=== PATIENT | female | born 1955 | race Caucasian/White ===

== ENCOUNTER 2020-09-12 09:49 | Outpatient (CLI) | payer MEDICARE, BC, SELFPAY ==
--- NOTE | 2020-09-12 10:15 | XRR_ITS ---
PROCEDURE INFORMATION: Exam: XR Lumbosacral Spine, 2 or 3 Views Exam date and time: 09/12/2020 10:21 AM Age: 65 years old Clinical indication: Injury or trauma; Fall; Blunt trauma (contusions or hematomas); Patient HX: C/O pain in tailbone -fell 2 weeks ago; Additional info: Herniated lumbar disc/lumbar back pain w/radiculopathy TECHNIQUE: Imaging protocol: XR of the lumbosacral spine, 2 or 3 views. COMPARISON: No relevant prior studies available. FINDINGS: Bones/joints: No fracture or other acute abnormalities are seen. Chronic degenerative disease is present throughout the lumbar spine especially from L3 through L5 with disc space narrowing and osteophyte formation. There is sclerosis and hypertrophy of the lower lumbar facet joints. There is no significant malalignment. Soft tissues: Unremarkable. Vasculature: There is calcification of the aorta. XR/XR lumbar spine 2-3V* [id number] IMPRESSION: Chronic degenerative disease especially from L3 through L5. No acute abnormality.
== END 2020-09-12 09:50 | disposition home or self-care (01) ==
PROVIDERS: PCP Electrodiagnostic Medicine; Visit Provider Electrodiagnostic Medicine
DX: I80.00 Phlebitis and thrombophlebitis of superficial vessels of unspecified lower extremity (principal); M51.26 Other intervertebral disc displacement, lumbar region; M54.16 Radiculopathy, lumbar region
CPT/HCPCS: 72100

== ENCOUNTER 2020-09-21 14:07 | Outpatient (CLI) | payer MEDICARE, SELFPAY ==
--- NOTE | 2020-09-21 | XR_ITS ---
WS: [id number] SCREENING DEXA SCAN [facility] CLINICAL INFORMATION: POST MENOPAUSE COMPARISON: None. FINDINGS: The L1-L4 bone mineral density measures 1.384 g/cm2. This corresponds to a T score score of 1.7 and Z score of 2.4. Left femoral neck bone mineral density measures 0.930 g/cm2. This corresponds to a T score of -0.6 an d Z score of 0.0. Right femoral neck bone mineral density measures 1.011 g/cm2. This corresponds to a T score 0.0of and Z score of 0.6. Mean femoral neck bone mineral density measures 0.970 g/cm2. This corresponds to a T score of -0.3 an d Z score of 0.3. XR/XR DEXA axial skeleton* [id number] IMPRESSION: Osteopenia in the femoral necks. Normal bone mineralization in the lumbar spine . Patient's FRAX calculated 10 year probability for major osteoporotic fracture i s 7.3 % and osteoporotic hip fracture is 0.4%.
== END 2020-09-21 14:08 | disposition home or self-care (01) ==
PROVIDERS: PCP Electrodiagnostic Medicine; Visit Provider Electrodiagnostic Medicine
DX: Z78.0 Asymptomatic menopausal state (principal); M85.88 Other specified disorders of bone density and structure, other site
CPT/HCPCS: 77080

== ENCOUNTER 2021-06-19 08:36 | Outpatient (CLI) | payer MEDICARE, SELFPAY ==
--- NOTE | 2021-06-19 08:45 | XR_ITS ---
WS: [id number] XR knee RT 3V* [id number] REASON FOR EXAM: KNEE PAIN RIGHT ACUTE FINDINGS: Mild narrowing of the medial and lateral knee joint spaces. Mild subchondral sclerosis in the subarti cular medial and lateral tibial plateau. Marginal osteophytes in the medial and lateral joint compart ments. Patient has 2 possibly 3 loose bodies in the posterior joint space and one loose body in the anterior joint space. Mild narrowing of the patellofemoral joint space with marginal osteophytes of the patella. XR/XR knee RT 3V* [id number] IMPRESSION: Moderate changes of osteoarthritis in the right knee with loose bodies. The ost eoarthritic changes and the loose bodies have progressed since previous examina tion of 01/30/2007.
== END 2021-06-19 08:37 | disposition home or self-care (01) ==
LOC: RAD 08:42
PROVIDERS: PCP Electrodiagnostic Medicine; Visit Provider Electrodiagnostic Medicine
DX: M25.561 Pain in right knee (principal)
CPT/HCPCS: 73562

== ENCOUNTER 2021-08-02 12:19 | Outpatient (CLI) | payer MEDICARE, SELFPAY ==
--- NOTE | 2021-08-02 12:26 | USCV_ITS ---
Emmanuel Carisa Age: 66 Gender: F : 1955 Exam Date: 08/02/2021 12:48 Ordering Phys: Ricky Hurt DO Technologist: MEEK [place] [facility] [place]: SUPERFICIAL THROMBOLITIS PROCEDURES: Venous duplex imaging was performed in only the right lower extremity. The following venous structures were evaluated: common femoral vein, profunda vein, proximal portion of the greater saphenous vein, superficial femoral vein, and the popliteal vein. In addition, the posterior tibial and peroneal trunk were evaluated. Serial compression, augmentation maneuvers, and spectral Doppler flow evaluation were performed. FINDINGS: Normal 2-D Doppler and augmentation and compressibility throughout the lower extremity venous structures. Additional imaging through the proximal calf veins also reveals no thrombus. Limited evaluation of the greater saphenous vein is patent with no thrombus.. There does appear to be two mcleod's cyst in the rt popliteal fossa. CONCLUSIONS No evidence of right lower extremity DVT. Popliteal cysts measuring 3.4x1.4 cm and 3.8x2.5cm Josue Stevenson MD (Electronically Signed) Final Date: 02 August 2021 13:08 S
== END 2021-08-02 12:20 | disposition home or self-care (01) ==
LOC: RAD 12:23
PROVIDERS: PCP Electrodiagnostic Medicine; Visit Provider Electrodiagnostic Medicine
DX: I80.00 Phlebitis and thrombophlebitis of superficial vessels of unspecified lower extremity (principal); M79.604 Pain in right leg; I83.90 Asymptomatic varicose veins of unspecified lower extremity
CPT/HCPCS: 93971

== ENCOUNTER → 2021-12-12 14:47 | Outpatient (BNVA) | payer MEDICARE, SELFPAY | PROVIDERS: PCP Electrodiagnostic Medicine; Visit Provider Podiatrist Foot & Ankle Surgery | DX: M25.572 Pain in left ankle and joints of left foot (principal) | CPT/HCPCS: 73610; 73630 ==

== ENCOUNTER 2021-12-18 13:08 | Outpatient (CLI) | payer MEDICARE, SELFPAY ==
--- NOTE | 2021-12-18 13:24 | USCV_ITS ---
Carisa Benitez Age: 66 Gender: F : 1955 Exam Date: 12/18/2021 13:34 Ordering Phys: Arnav Tabor MD ([email or web address]) Technologist: ELOINA Exam Location: [facility] [place] Indication: HISTORY: Varicose Veins PROCEDURES: The venous duplex Doppler examination of both lower extremities was performed in the standard fashion. The following venous structures were evaluated: common femoral vein, greater saphenous vein, superficial femoral vein, and the popliteal vein and the ptvs. Serial compression, augmentation maneuvers, and spectral Doppler flow evaluation were performed. An evaluation for venous insufficiency was also completed. FINDINGS: The right leg is her biggest bother. There is reflux all the way down the GSV and some V.Vs go into the GSV. The V.V. below know connect with the SSV On the left the SSV connects to V.V. CONCLUSIONS 1. No evidence of DVT the wounds and abrasions. 2. Significant venous reflux of greater than 500 ms were noted throughout the greater saphenous vein segments and the small saphenous vein segments on the right side. However these venous segments were found to be very superficial, less than 1 cm. At the above-knee level, the varicose veins were found to be related to the greater saphenous vein segments. At the below-knee level the varicose veins were found to be connected to the small saphenous vein. 3. On the left side, significant venous reflux of greater than 500 ms were noted at the proximal to mid segment of the small saphenous vein. But the venous segments were found to be very superficial, less than 1 cm from the surface At the below-knee level, the varicose veins were found to be connected to small saphenous veins bilaterally An echolucent area was noted in the popliteal fossa on the right side measuring 6.4 x 2.4 cm. This is suggestive of Zamorano's cyst Dr Massiel Caldwell MD [facility] (Electronically Signed) Final Date: 19 December 2021 23:21 S
== END 2021-12-18 13:09 | disposition home or self-care (01) ==
PROVIDERS: PCP Electrodiagnostic Medicine; Visit Provider Internal Medicine Cardiovascular Disease
DX: I83.90 Asymptomatic varicose veins of unspecified lower extremity (principal); I87.2 Venous insufficiency (chronic) (peripheral)
CPT/HCPCS: 93970

== ENCOUNTER → 2022-01-17 10:08 | Outpatient (BNVA) | payer MEDICARE, SELFPAY | PROVIDERS: PCP Electrodiagnostic Medicine; Visit Provider Podiatrist Foot & Ankle Surgery | DX: M76.829 Posterior tibial tendinitis, unspecified leg; M76.72 Peroneal tendinitis, left leg; M21.42 Flat foot [pes planus] (acquired), left foot; Z87.891 Personal history of nicotine dependence; S93.622A Sprain of tarsometatarsal ligament of left foot, initial encounter; X58.XXXA Exposure to other specified factors, initial encounter | CPT/HCPCS: 99213; 99214 ==

== ENCOUNTER → 2022-02-19 09:24 | Outpatient (BNVA) | payer MEDICARE, SELFPAY | PROVIDERS: PCP Electrodiagnostic Medicine; Visit Provider Podiatrist Foot & Ankle Surgery | DX: S93.629A Sprain of tarsometatarsal ligament of unspecified foot, initial encounter (principal); M79.672 Pain in left foot; M76.822 Posterior tibial tendinitis, left leg; M76.72 Peroneal tendinitis, left leg; M21.42 Flat foot [pes planus] (acquired), left foot; X58.XXXA Exposure to other specified factors, initial encounter | CPT/HCPCS: 99213 ==

== ENCOUNTER 2022-03-06 11:48 | Outpatient (CLI) | payer MEDICARE, SELFPAY | END 2022-03-06 11:49 | disposition home or self-care (01) | LOC: SPT 11:49 | PROVIDERS: PCP Electrodiagnostic Medicine; Visit Provider Podiatrist Foot & Ankle Surgery | DX: Z46.89 Encounter for fitting and adjustment of other specified devices (principal); M79.672 Pain in left foot; M76.822 Posterior tibial tendinitis, left leg; M76.72 Peroneal tendinitis, left leg; M21.42 Flat foot [pes planus] (acquired), left foot | CPT/HCPCS: 97760; L3030 ==

== ENCOUNTER → 2022-04-08 08:43 | Outpatient (BNVA) | payer MEDICARE, SELFPAY | PROVIDERS: PCP Electrodiagnostic Medicine; Visit Provider Podiatrist Foot & Ankle Surgery | DX: M79.672 Pain in left foot (principal); S93.629A Sprain of tarsometatarsal ligament of unspecified foot, initial encounter; M21.42 Flat foot [pes planus] (acquired), left foot; M76.822 Posterior tibial tendinitis, left leg; X58.XXXA Exposure to other specified factors, initial encounter | CPT/HCPCS: 99214 ==

== ENCOUNTER 2022-05-14 | Outpatient (CLI) | payer MEDICARE, SELFPAY | END 2022-05-14 23:00 | disposition home or self-care (01) | LOC: RAD 07-16 01:26 | PROVIDERS: PCP Electrodiagnostic Medicine; Visit Provider Podiatrist Foot & Ankle Surgery | DX: S93.629A Sprain of tarsometatarsal ligament of unspecified foot, initial encounter (principal); X58.XXXA Exposure to other specified factors, initial encounter; M76.72 Peroneal tendinitis, left leg; M21.42 Flat foot [pes planus] (acquired), left foot | CPT/HCPCS: 99214 ==

== ENCOUNTER → 2022-05-29 11:17 | Outpatient (BNVA) | payer MEDICARE, SELFPAY | PROVIDERS: PCP Electrodiagnostic Medicine; Visit Provider Podiatrist Foot & Ankle Surgery | DX: M76.822 Posterior tibial tendinitis, left leg (principal); X58.XXXA Exposure to other specified factors, initial encounter; M76.72 Peroneal tendinitis, left leg; M21.42 Flat foot [pes planus] (acquired), left foot; S93.326A Dislocation of tarsometatarsal joint of unspecified foot, initial encounter | CPT/HCPCS: 99214 ==

== ENCOUNTER 2022-06-14 08:18 | Day surgery (SDC) | payer MEDICARE, SELFPAY ==
[2022-06-13 08:55] VITALS: BMI 29.9
[2022-06-14] VITALS (8 sets, daily range): BP systolic 143–159; BP diastolic 80–111; PULSE 74–91; RESP 16–20; TEMP 36.7–37.1; O2SAT 90–100
--- NOTE | 2022-06-14 | SCC_ITS ---
Procedure done: This of left first and second tarsometatarsal joints. CPT code 84325 16 seconds of fluoroscopic guidance, for a cumulative dose of 0.275 mGy, was provided to Dr. Nam by the radiology department. C-arm images of the left foot were saved for the patient's permanent record. [facility]
--- NOTE | 2022-06-14 08:43 | W.PM.OPSUD ---
Surgery/Procedure H&P Update DATE OF PROCEDURE: June 14, 2022 DATE H&P PERFORMED: 05/29/22 CHANGES TO PREVIOUS DOCUMENTATION: none PREOP DIAGNOSIS: Lisfranc dislocation, left foot PLANNED PROCEDURE: Operation Date: 06/14/22 09:50 Proposed Procedures p Arthrodesis of left midtarsal joint 26209,,S92.321A,M12.572(Left) - Santiago Nam DPM
--- NOTE | 2022-06-14 08:46 | XR_ITS ---
WS: [id number] Exam: XR foot LT min 3V* [id number] Date/Time of Exam: 06/14/2022 10:57 AM Reason For Exam: post op first and second TMT J arthrodesis Operative fusion with plate and screw fixation of the first and second metatarsal cuneiform joints. A lignment appears satisfactory. No sign of hardware failure or malposition. No other postoperative isabelle nges are identified. XR/XR foot LT min 3V* [id number] IMPRESSION: 1. Arthrodesis of the first and second metatarsal cuneiform joints with hardwar e as noted above.
[2022-06-14] MEDS: gabapentin 300 mg Capsule PO (08:48)
[2022-06-14] MEDS: CELEcoxib 200 mg Capsule 400 MG PO (08:48)
[2022-06-14] MEDS: sodium chloride 0.9% 1,000 ML 30 ML IV (08:50)
[2022-06-14] MEDS: ceFAZolin 2,000 MG in sodium chloride 0.9% (plus) 50 ML 100 MG IV (09:04)
[2022-06-14] MEDS: scopolamine 1.5 Patch 1 PATCH TRANSDERMA (09:05)
--- NOTE | 2022-06-14 09:47 | ANES.PREANE2 ---
Pre-Anesthetic Assessment Height/Weight: Height 1.73 m Weight 89.358 kg Temp Pulse Resp BP Pulse Ox O2 Del Method 98.7 F 91 17 155/111 96 06/14/22 08:06/14/22 08:06/14/22 08:06/14/22 08:06/14/22 08:06/14/22 08:35 Preop Diagnosis: Lisfranc dislocation, left foot Operation Date: 06/14/22 09:50 Proposed Procedures p Arthrodesis of left midtarsal joint 06880,,S92.321A,M12.572(Left) - Santiago Nam DPM Familial anesthetic complications: none Was Beta Beverly taken within 24 hours: N/A Was Clonidine taken within 24 hours: N/A Last intake: Intake Last Liquid Date 06/13/22 Last Liquid Time 19:30 Last Solid Date 06/13/22 Last Solid Time 19:00 Social No alcohol and No tobacco Exam alert, oriented x 3, clear to auscultation bilaterally and regular rate & rhythm Airway Submandibular: within normal limits Cervical ROM: within normal limits Mallampati: Class II Dentition: full CV/HEM Hypertension GI Gastroesophageal Reflux Disease Metabolic Hyperlipidemia Anesthetic Plan ASA status: 2 Anesthesia: General and Regional (specify below) (left pop blk) Medications/Allergies Home Medications Medication Instructions Recorded Confirmed Last Taken Type amlodipine 5 mg tablet 5 mg PO DAILY 08/30/21 06/14/22 06/14/22 07:30 History atorvastatin 40 mg tablet 40 mg PO DAILY 08/30/21 06/14/22 06/13/22 21:00 History cholecalciferol (vitamin D3) 1,250 50,000 unit PO .Montly 08/30/21 06/14/22 05/24/22 History mcg (50,000 unit) capsule ibuprofen 800 mg tablet 800 mg PO TID PRN Mild Pain (Scale 08/30/21 06/13/22 Unknown History Score 1-4) omeprazole 40 mg capsule,delayed 40 mg PO DAILY 08/30/21 06/14/22 06/13/22 08:00 History release tizanidine 2 mg tablet 2 mg PO TID PRN Muscle Spasticity 08/30/21 06/13/22 Unknown History Custom Molded Orthotics #1 ea 12/12/21 05/29/22 Unknown Rx hydrocodone 10 mg-acetaminophen 1 tab PO Q6H PRN pain 7 days #28 06/14/22 Unknown Rx 325 mg tablet tabs Allergies Allergy/AdvReac Type Severity Reaction Status Date / Time No Known Allergies Allergy Verified 05/29/22 11:28 Current Medications Generic Name Dose Route Start Last Admin Trade Name Freq PRN Reason Stop Dose Admin Sodium Chloride 1,000 mls @ 30 mls/hr 06/14/22 08:30 06/14/22 08:50 Sodium Chloride 0.9% IV 06/15/22 08:29 30 mls/hr .Q24H SAIDA Administration PFSH Anesthesia Family History Mother Heart disease Father Heart disease Cancer Brother Cancer Colon CA Social History Smoking and tobacco status: never smoked Quit status (tobacco): has quit using tobacco Year quit tobacco: 1997 2 pack per day Former quit date comment: smoked for 30 years Alcohol intake: current Alcohol intake frequency: 3 or more drinks per day Alcohol type: beer Lives independently: Yes Household members: spouse Housing: House Marital status: Number of children: 3 Pets and animals: No Data Anesthesia Cardiac Studies: No Data to Display Anesthesia Procedures Nerve Block Nerve Block 1: Main Anesthesia: general anesthesia Time Out Performed: Yes Consent: requested by attending/covering physician, from patient, risks and benefits reviewed and patient agrees to proceed Nerve block location: popliteal (left) Anesthesia monitors applied: pulse oximetry, EKG, BP cuff and oxygen Nerve block position: supine Anesthetic Used: ropivicaine 0.5% Amount of anesthesia used (mL): 30 Ultrasound used to: recognize landmarks Nerve Stimulator Used?: No Interscalene/Femoral BLK: 4 stimuplex 21 g needle used for position and inplane approach Injection: neg aspiration of heme Patient Tolerated Procedure: well Complications: none
--- NOTE | 2022-06-14 10:46 | PM.OP ---
Operative Report Date of procedure: June 14, 2022 Pre-op diagnosis: Preop Diagnosis Lisfranc dislocation, left foot Post-op diagnosis: Left Lisfranc dislocation Post-op findings: Gross instability at the left first and second tarsometatarsal joints. Procedure done: This of left first and second tarsometatarsal joints. CPT code 53576 Implants: Orlando 28 Lapidus plate. Orlando 28 4 mm headed screw for homerun through arthrodesis, Orlando 28 3.5 mm locking and nonlocking screws. Orlando 28 Hamel plate. Orlando 28 2.7 mm locking and nonlocking screws. 1 cc of Orlando 28 demineralized bone matrix. 3-0 Vicryl, 4-0 Vicryl, 5-0 Monocryl. 20 cc of one-to-one mixture 0.5% Marcaine plain and Exparel. Specimens removed/disposition: None Pathology: None Surgeon: Santiago Nam D.P.M. Division Officer [employer]: [employer] Estimated blood loss: None 63 IV fluids: None Urine output: None Complications: None Findings: Gross instability at left first and second tarsometatarsal joints. Brief History: Patient is a pleasant 66-year-old female continues to have pain at the left foot.? CT scan was revealing.? Shows malalignment of the medial cuneiform with the first metatarsal dislocated laterally approximately 3 mm.? There is dorsal lateral subluxation of the second metatarsal base in regards to the unmedicated form also up to 3 mm.? Pain has been present since spring 2021 began in November.? She would like to discuss surgical intervention has failed a aggressive at home physical therapy, formal physical therapy, offloading and bracing, she has tried supportive shoes, anti-inflammatories and continues to have pain at her left foot with everyday activities.? She is wishing to proceed with surgery on 06/14/2022.? I reviewed at length with the patient, the risks, potential complications, benefits, alternatives, expectations, and typical outcomes associated with the surgery. The risks and potential complications were explained in detail, including but not limited to infection, wound dehiscence or soft tissue complications, bleeding and hematoma, chronic edema, neuritis or nerve damage producing numbness or chronic pain, CRPS, failure to relieve pain or worsening pain, thick / painful / unsightly scar, limited motion / stiffness, malposition, delayed union, malunion, or nonunion, fracture, reaction to implants, anesthetic complications, venous thromboembolism, and deformity recurrence.? I discussed the notion of no regrets with the patient as it pertains to complications and outcomes. The patient seemed to understand the nature of the proposed care and required convalescence. They asked appropriate questions, answered to their satisfaction. They are aware no guarantees can be made as to a satisfactory outcome and they understand there may be other possible unforeseen complications or outcomes not listed here that will be treated accordingly if they arise. There were no written or implied guarantees given to the patient. They gave informed consent to proceed.? Procedure: Under mild sedation the patient was brought to the operating room and remained on the gurney in supine position. A timeout was performed. Anesthesia was then administered by the anesthesia service. Of note popliteal block to the left lower extremity administered per anesthesia service preoperatively. Well-padded pneumatic tourniquet applied to the left ankle. 0.5% Marcaine plain and Exparel one-to-one mixture total of 20 cc injected to the proximal midfoot dorsally and medially in a grid like fashion subcutaneously. The left lower extremity was then scrubbed, prepped and draped utilizing normal aseptic technique. Left foot was then exanguinated with an Esmarch bandage and the tourniquet inflated to 250 mmHg. Attention was directed to the dorsal medial aspect of the left first metatarsal phalangeal joint where a linear longitudinal incision was made medial and parallel to the extensor houses longus tendon through skin with dissection carried down to the layer of periosteum and joint capsule utilizing a combination of blunt and sharp technique. Care was taken to retract and preserve neurovascular and tendinous structures. All bleeders were ligated and cauterized as necessary. A periosteal and capsular incision was made at the first metatarsal base and medial cuneiform joint which was then distracted and prepared for arthrodesis utilizing osteotome and curettage denuding all articular surface, saline flush and subchondral drilling at the base of the left first metatarsal and distal aspect of the medial cuneiform. The first metatarsal was held parallel to the second metatarsal and impacted on the arthrodesis site under loading and a homerun screw from dorsal distal to proximal plantar utilizing a Orlando 28 4.0 mm headed screw with excellent bony apposition and compression noted not violating the cuneiform navicular joint. Next utilizing standard AO technique a Orlando 28 standard Lapidus plate with 2 screws proximal and 2 distal were inserted with excellent bony apposition compression noted. Placement of hardware not violating adjacent joints and appropriate length appreciated in office 3 standard views utilizing intraoperative fluoroscopy. Of note preoperatively the first and second tarsometatarsal joints demonstrated gross instability and subluxation at their respective joints. The incision was flushed with copious amounts of sterile skin solution. Attention was then directed to the dorsal aspect of the second metatarsal proximally where a linear longitudinal incision was made directly over the intermediate cuneiform and second metatarsal through skin with dissection carried down through subcutaneous tissue and to the layer of periosteum and joint capsule utilizing sharp and blunt technique. Care was taken to retract and preserve neurovascular and tendinous structures. All bleeders were ligated and cauterized as necessary. Periosteal and capsular incision was performed dorsally at the second metatarsal base and intermediate cuneiform, the arthrodesis site of the second metatarsal base and cuneiform joint was prepared utilizing distraction of the joint, curettage and osteotome to denude all articular surface followed by saline flush and subchondral drilling with subchondral drill bit to millimeter in diameter. The second metatarsal base was fused with excellent bony apposition and compression noted at the arthrodesis site utilizing a Orlando 28 Hamel plate and 2.7 mm locking and nonlocking screws. Excellent bony apposition and compression, alignment confirmed in all 3 planes not violating any adjacent joints including the cuneiform navicular joint was clear of hardware. Significant stability imparted to the first and second tarsometatarsal joint intraoperatively. The incisions were then flushed with copious amounts of sterile skin solution and periosteal and capsular structures reapproximated utilizing 3-0 Vicryl, subcutaneous tissue reapproximated with 4-0 Vicryl and skin reapproximated with 5-0 Monocryl followed by benzoin and Steri-Strips. The incision was then dressed with Adaptic, sterile 4 x 4, Kerlix and Dain wrap and a cam boot was applied to the left lower extremity. Tourniquet was deflated and a prompt hyperemic response was noted to the distal digits of the left foot. Patient tolerated the procedure and anesthesia well and was transferred to the PACU with vital signs stable and vascular status intact. Following a period of postoperative monitoring she will be discharged home is to remain strict nonweightbearing and elevate the left foot at all times while resting. I advised a baby aspirin once daily starting morning after surgery 06/15/2022 to help potentially reduce the risk of deep vein thrombosis. She was provided a prescription for hydrocodone to be taken judiciously as needed for pain. She is to keep her postoperative dressings clean, dry and intact until follow-up visit Friday next week for her first dressing change. Provided the patient with my cell phone number and discharge instructions. She is to contact with any postoperative questions or concerns.
--- NOTE | 2022-06-14 14:18 | ANE.PACU2 ---
Inpatient post-anesthesia follow up: Airway intact: Yes Vital signs: Temperature 98.1 F Pulse Rate 82 Respiratory Rate 17 Blood Pressure 150/97 Pulse Oximetry 92 Oxygen Delivery Me thod Room Air Oxygen Flow Rate 8 Fraction of Inspir ed Oxygen Hydration adequate: Yes Nausea and vomiting: No Pain level: 1 Mental status: Baseline
== END 2022-06-14 11:43 | disposition home or self-care (01) ==
PROVIDERS: PCP Electrodiagnostic Medicine; Visit Provider Podiatrist Foot & Ankle Surgery
PROC: (CPT 28740; principal; 2022-06-14 09:40)
DX: S93.324A Dislocation of tarsometatarsal joint of right foot, initial encounter (principal); X58.XXXA Exposure to other specified factors, initial encounter; I10 Essential (primary) hypertension; K21.9 Gastro-esophageal reflux disease without esophagitis; E78.5 Hyperlipidemia, unspecified; Z87.891 Personal history of nicotine dependence
CPT/HCPCS: 28735; 73630; 76000; C1713; C9290; J1100; J1200; J2250; J2370; J2405; J2704; J2795; J3010; J3490; J7030

== ENCOUNTER → 2022-07-04 12:54 | Outpatient (BNVA) | payer MEDICARE, SELFPAY | PROVIDERS: PCP Electrodiagnostic Medicine; Visit Provider Podiatrist Foot & Ankle Surgery | DX: M76.822 Posterior tibial tendinitis, left leg (principal); M76.72 Peroneal tendinitis, left leg; M21.42 Flat foot [pes planus] (acquired), left foot; S93.326A Dislocation of tarsometatarsal joint of unspecified foot, initial encounter; X58.XXXA Exposure to other specified factors, initial encounter; Z98.890 Other specified postprocedural states | CPT/HCPCS: 73630; 99024 ==

== ENCOUNTER → 2022-07-25 13:19 | Outpatient (BNVA) | payer MEDICARE, SELFPAY | PROVIDERS: PCP Electrodiagnostic Medicine; Visit Provider Podiatrist Foot & Ankle Surgery | DX: Z98.890 Other specified postprocedural states (principal); S93.326A Dislocation of tarsometatarsal joint of unspecified foot, initial encounter; X58.XXXA Exposure to other specified factors, initial encounter | CPT/HCPCS: 73630; 99024 ==

== ENCOUNTER → 2022-08-16 10:56 | Outpatient (BNVA) | payer MEDICARE, SELFPAY | PROVIDERS: PCP Electrodiagnostic Medicine; Visit Provider Podiatrist Foot & Ankle Surgery | DX: Z98.890 Other specified postprocedural states (principal); S93.322A Subluxation of tarsometatarsal joint of left foot, initial encounter; X58.XXXA Exposure to other specified factors, initial encounter | CPT/HCPCS: 73630; 99024 ==

== ENCOUNTER → 2022-08-28 09:55 | Outpatient (BNVA) | payer MEDICARE, SELFPAY | PROVIDERS: PCP Electrodiagnostic Medicine; Visit Provider Podiatrist Foot & Ankle Surgery | DX: Z98.890 Other specified postprocedural states (principal); S93.326D Dislocation of tarsometatarsal joint of unspecified foot, subsequent encounter; X58.XXXD Exposure to other specified factors, subsequent encounter | CPT/HCPCS: 73630; 99024 ==

== ENCOUNTER → 2022-10-24 14:29 | Outpatient (BNVA) | payer MEDICARE, SELFPAY | PROVIDERS: PCP Electrodiagnostic Medicine; Visit Provider Podiatrist Foot & Ankle Surgery | DX: Z98.890 Other specified postprocedural states (principal); S93.326A Dislocation of tarsometatarsal joint of unspecified foot, initial encounter; X58.XXXA Exposure to other specified factors, initial encounter | CPT/HCPCS: 73630; 99213 ==

== ENCOUNTER 2023-01-12 06:00 | Inpatient (IN) | payer MEDICARE, SELFPAY ==
[2023-01-12] VITALS (33 sets, daily range): BP systolic 128–158; BP diastolic 72–111; PULSE 58–123; RESP 15–24; TEMP 36.6–36.7; O2SAT 91–99; BMI 28.1
--- NOTE | 2023-01-12 06:40 | CTR_ITS ---
PROCEDURE INFORMATION: Exam: CT Abdomen And Pelvis With Contrast Exam date and time: 01/12/2023 7:36 AM Age: 67 years old Clinical indication: Abdominal pain; Additional info: Abd pain TECHNIQUE: Imaging protocol: Computed tomography of the abdomen and pelvis with contrast. Radiation optimization: All CT scans at this facility use at least one of these dose optimization techniques: automated exposure control; mA and/or kV adjustment per patient size (includes targeted exams where dose is matched to clinical indication); or iterative reconstruction. Contrast material: OMNI 350; Contrast volume: 100 ml; Contrast route: INTRAVENOUS (IV); REPORTING DATA: Count of CT and Cardiac NM exams in prior 12 months: This patient has received [address] and 0 known cardiac nuclear medicine studies in the 12 months prior to the current study. COMPARISON: CR XR lumbar spine 2-3V* [id number] 09/12/2020 10:26 AM RADIATION DOSE METRICS: Total DLP (mGy-cm): 690.1 FINDINGS: Liver: Area of hypoattenuation along the anterior margin of the liver adjacent to the falciform ligament consistent with focal fatty infiltration. The liver is normal in size and contour. Gallbladder and bile ducts: The gallbladder appears unremarkable. No intra- or extra-hepatic biliary ductal dilatation. Pancreas: The pancreas appears normal. Spleen: The spleen appears normal. Adrenal glands: The adrenals appear normal. Kidneys and ureters: Simple appearing, fluid density cysts noted in the kidneys bilaterally. The kidneys enhance symmetrically and empty into non-dilated ureters. Stomach and bowel: The stomach appears unremarkable. The small bowel loops are not abnormally dilated. The large bowel loops are not abnormally dilated. Colonic diverticulosis without signs of acute diverticulitis. Appendix: No signs of appendicitis. Intraperitoneal space: No ascites or significant fluid collection. Vasculature: Partially calcified distal splenic artery aneurysms measuring up to approximately 8 mm in diameter. Lymph nodes: There are no enlarged lymph nodes. Urinary bladder: Mild circumferential thickening of the bladder wall likely related to partial nondistention. No surrounding inflammatory changes. Reproductive: Unremarkable as visualized. Bones/joints: Unremarkable. Soft tissues: Unremarkable. CT/CT abdomen pelvis w con* [id number] IMPRESSION: 1. No acute abdominopelvic abnormality identified. 2. Colonic diverticulosis without signs of acute diverticulitis. COMMENTS: Consistent with the [employer]'s Incidental Findings Committee white paper (J Am Erick Radiol 2018): Any incidental renal lesion less than 1 cm or classified as too small to characterize, or any incidental cystic renal lesion characterized as simple-appearing, is likely benign. No follow-up imaging is recommended for these lesions per consensus recommendations based on imaging criteria.
--- NOTE | 2023-01-12 06:40 | CTR_ITS ---
PROCEDURE INFORMATION: Exam: CT Lumbar Spine Without Contrast Exam date and time: 01/12/2023 7:36 AM Age: 67 years old Clinical indication: Pain; Lumbago with sciatica; Left; Additional info: Back pain w L leg radicular pain TECHNIQUE: Imaging protocol: Computed tomography of the lumbar spine without contrast. Radiation optimization: All CT scans at this facility use at least one of these dose optimization techniques: automated exposure control; mA and/or kV adjustment per patient size (includes targeted exams where dose is matched to clinical indication); or iterative reconstruction. REPORTING DATA: Count of CT and Cardiac NM exams in prior 12 months: This patient has received [address] and 0 known cardiac nuclear medicine studies in the 12 months prior to the current study. COMPARISON: CR XR lumbar spine 2-3V* [id number] 09/12/2020 10:26 AM RADIATION DOSE METRICS: Total DLP (mGy-cm): 801.1 FINDINGS: Bones/joints: The lumbar spine demonstrates mild straightening of the normal lordotic curvature. No spondylolisthesis. The vertebral bodies maintain normal height. No fracture. Multilevel loss of intervertebral disc height with endplate degenerative changes, most significant at L1-L2, L3-L4, and L4-L5. Bilateral neural foraminal narrowing at L3-L4 and L4-L5. Multilevel facet arthropathy Soft tissues: The paravertebral soft tissues are unremarkable. CT/CT lumbar spine wo con* [id number] IMPRESSION: 1. No acute fracture or traumatic malalignment in the lumbar spine. 2. Multilevel degenerative changes in the lumbar spine. 3. Bilateral neural foraminal narrowing at L3-L4 and L4-L5.
[2023-01-12] MEDS: sodium chloride 0.9% 1,000 ML 999 ML IV ×2 (06:51→09:07)
[2023-01-12] MEDS: morphine 4 mg/mL SDV 1 mL IVP ×2 (06:53→09:07)
[2023-01-12] MEDS: ondansetron 2 mg/ML SDV 2 mL 4 MG IVP (06:53)
[2023-01-12] MEDS: dexamethasone 10 mg/mL INJ IVP (06:53)
[2023-01-12] MEDS: ketorolac 30 mg/mL INJ IVP (06:53)
[2023-01-12 07:00] LABS: Basophils # 0.1 10^3/uL (0.0-0.1); Basophils % 0.4 %; Eosinophils # 0.1 10^3/uL (0.0-0.8); Eosinophils % 0.4 %; Lymphocytes # 2.1 10^3/uL (0.8-4.8); Lymphocytes % 13.8 %; Mean Corpuscular HGB Conc 34.8 g/dL (30.0-36.0); Mean Corpuscular Hemoglobin 30.8 pg (28.0-34.0); Mean Corpuscular Volume 88.6 fl (81-99); Mean Platelet Volume 9.2 fL (7.4-10.4); Monocytes # 1.1 10^3/uL (0.2-0.9); Monocytes % 7.2 %; Neutrophils # 11.92 10^3/uL (1.8-7.7); Neutrophils % 77.7 %; Nucleated Red Blood Cells % 0 %; Platelet Count 403 10^3/cmm (130-400); Red Blood Count 5.19 10^6/uL (4.1-5.3); Red Cell Distribution Width 13.3 % (12.1-15.1); White Blood Count 15.3 10^3/uL (4.0-10.0)
--- NOTE | 2023-01-12 07:04 | W.ED.BACK ---
HPI - Back Pain/Injury General: Chief Complaint: Back Pain/Injury Stated Complaint: back pain, left leg numbness Time Seen by Provider: 01/12/23 06:18 Source: patient Mode of arrival: ambulatory History of Present Illness: 67-year-old female who presents to the emergency room with complaints of back pain with left leg radicular symptoms she has had right leg radicular symptoms in the past no recent trauma or fall. This been going on for the last 10 days she had seen her primary care doctor they put her on some steroids which she states that did not really help at all she is off the steroids and now it is worsened significantly. She had an MRI about a year ago at an outside facility. She denies any fecal incontinence or urinary retention. MD elicited complaint: back pain Pertinent past history: prior back pain Onset (ago): day(s) Timing: constant Severity: severe Similar Symptoms Previously: Yes Quality: sharp Location: lumbar spine Radiation: groin, left upper leg and left leg below the knee Exacerbating factors: movement and walking Associated symptoms: Reports difficulty walking; Deny abdominal pain, arthralgias, chills, change in bowel habits, dysuria, fatigue, fecal incontinence, fever(s), hematuria, myalgias, nausea, numbness, syncope, tingling/numbness/burning, urinary frequency, urinary urgency, vomiting or weakness Review of Systems Const: Denies: fever(s), chills, fatigue or malaise ENMT: Denies: throat pain, ear or mastoid pain, nasal discharge or nasal congestion Card: Denies: chest pain, palpitations, irregular heart rhythm or syncope Resp: Denies: dyspnea, productive cough or non-productive cough GI: Denies: abdominal pain, nausea, vomiting, fecal incontinence or change in bowel habits : Denies: dysuria, urinary frequency, urinary urgency or hematuria Musc: Reports: back pain and extremity pain Skin/Breast: Denies: rash or pruritus Neuro: Reports: difficulty walking PFSH ED PFSH: Medical History HTN (hypertension) Hyperlipidemia Lisfranc fracture Surgical History S/P arthroscopic knee surgery (~2013) S/P bladder repair S/P foot surgery, right S/P hysterectomy (~1995) Family History Mother Heart disease Father Heart disease Cancer Brother Cancer Colon CA Social History Smoking and tobacco status: never smoked Quit status (tobacco): has quit using tobacco Year quit tobacco: 1997 2 pack per day Former quit date comment: smoked for 30 years Alcohol intake: current Alcohol intake frequency: 3 or more drinks per day Alcohol type: beer Substance/Drug Use: never Lives independently: Yes Household members: spouse Housing: House Marital status: Number of children: 3 Pets and animals: No Physical Exam Const: GENERAL APPEARANCE: cooperative and comfortable ORIENTATION/CONSCIOUSNESS: Yes awake, Yes oriented to person, Yes oriented to place and Yes oriented to time HENMT: COMMON NORMALS: normocephalic, atraumatic and hearing grossly normal bilaterally HEAD & SCALP: normocephalic and atraumatic Resp: COMMON NORMALS: normal respiratory effort, No retractions, No use of accessory muscles and clear to auscultation bilaterally AUSCULTATION: clear to auscultation bilaterally Cardio: COMMON NORMALS: regular rate, regular rhythm and No murmurs present (Cardio) RATE: regular rate RHYTHM: regular rhythm GI: COMMON NORMALS: Soft to palpation and No hepatosplenomegaly present AUSCULTATION: Yes normoactive bowel sounds PALPATION: Yes Soft to palpation, No Tenderness to palpation present (GI), No Guarding due to palpation present (GI) and Yes No hepatosplenomegaly present Extremity: COMMON NORMALS: normal to inspection, capillary refill normal, no clubbing, cyanosis or edema, no calf tenderness and no pedal edema Neuro: SENSORIUM/ORIENTATION: Yes oriented to person, Yes oriented to place and Yes oriented to time MOTOR EXAM: 5/5 motor strength present throughout OTHER: Sensation lower extremities intact positive left leg raising Skin: COMMON NORMALS: no rashes or lesions noted GENERAL SKIN EXAM: no rashes or lesions noted Course Vital Signs: Vital signs: Vital Signs Temperature 98 F 01/12/23 06:07 Pulse Rate 72 01/12/23 12:52 Respiratory Rate 16 01/12/23 11:45 Blood Pressure 128/76 01/12/23 12:52 Pulse Oximetry 94 01/12/23 12:52 Oxygen Delivery Me thod Room Air 01/12/23 09:12 MDM - Back Pain/Injury Medical Decision Making Patient's pain persisted despite 2 doses of morphine and Dilaudid steroids for muscle relaxer and ketorolac. CT did not show any acute fracture. She is having significant alteration in sensation in her left lower extremity. She was able to void and completely empty her bladder although she had some difficult time doing so initially. Given her persistent pain will admit discussed Dr. Faria who is on-call plan is for an inpatient MRI and consultation from Dr. Faria as well as continuous pain management. Medical Records I reviewed the patient's medical records. Labs I reviewed the patient's lab results. 01/12/23 06:43 01/12/23 06:43 Radiology Impressions Abdomen/Pelvis CT 01/12/23 06:40 IMPRESSION: 1. No acute abdominopelvic abnormality identified. 2. Colonic diverticulosis without signs of acute diverticulitis. COMMENTS: Consistent with the [employer]'s Incidental Findings Committee white paper (J Am Erick Radiol 2018): Any incidental renal lesion less than 1 cm or classified as too small to characterize, or any incidental cystic renal lesion characterized as simple-appearing, is likely benign. No follow-up imaging is recommended for these lesions per consensus recommendations based on imaging criteria. Lumbar Spine CT 01/12/23 06:40 IMPRESSION: 1. No acute fracture or traumatic malalignment in the lumbar spine. 2. Multilevel degenerative changes in the lumbar spine. 3. Bilateral neural foraminal narrowing at L3-L4 and L4-L5. Laboratory Results WBC 15.3 10^3/uL (4.0-10.0) H 01/12/23 06:43 RBC 5.19 10^6/uL (4.1-5.3) 01/12/23 06:43 Hgb 16.0 g/dL (11.5-15.3) H 01/12/23 06:43 Hct 46.0 % (37.0-47.0) 01/12/23 06:43 MCV 88.6 fl (81-99) 01/12/23 06:43 MCH 30.8 pg (28.0-34.0) 01/12/23 06:43 MCHC 34.8 g/dL (30.0-36.0) 01/12/23 06:43 RDW 13.3 % (12.1-15.1) 01/12/23 06:43 Plt Count 403 10^3/cmm (130-400) H 01/12/23 06:43 MPV 9.2 fL (7.4-10.4) 01/12/23 06:43 Neut % (Auto) 77.7 % 01/12/23 06:43 Lymph % (Auto) 13.8 % 01/12/23 06:43 [place] % (Auto) 7.2 % 01/12/23 06:43 Eos % (Auto) 0.4 % 01/12/23 06:43 Baso % (Auto) 0.4 % 01/12/23 06:43 Neut # (Auto) 11.92 10^3/uL (1.8-7.7) H 01/12/23 06:43 Lymph # (Auto) 2.1 10^3/uL (0.8-4.8) 01/12/23 06:43 [place] # (Auto) 1.1 10^3/uL (0.2-0.9) H 01/12/23 06:43 Eos # (Auto) 0.1 10^3/uL (0.0-0.8) 01/12/23 06:43 Baso # (Auto) 0.1 10^3/uL (0.0-0.1) 01/12/23 06:43 Nucleated RBC % (auto) 0 % 01/12/23 06:43 Nucleated RBCs # 0.0 /100WBC 01/12/23 06:43 Sodium 131 mmol/L (136-145) L 01/12/23 06:43 Potassium 3.4 mmol/L (3.5-5.1) L 01/12/23 06:43 Chloride 90 mmol/L (98-107) L 01/12/23 06:43 Carbon Dioxide 21 mmol/L (22-29) L 01/12/23 06:43 Anion Gap 23.4 (5-19) H 01/12/23 06:43 BUN 27 mg/dL (8-23) H 01/12/23 06:43 Creatinine 1.0 mg/dL (0.5-0.9) H 01/12/23 06:43 GFR Calculation 55.3 mL/min (90-130) L 01/12/23 06:43 Glucose 182 mg/dL (65-115) H 01/12/23 06:43 Calculated Osmolality 282 mOsm/kg (285-295) L 01/12/23 06:43 Calcium 9.9 mg/dL (8.5-10.5) 01/12/23 06:43 Total Bilirubin 1.2 mg/dL (0.15-1.2) 01/12/23 06:43 AST 23 U/L (0-32) 01/12/23 06:43 ALT 26 U/L (0-33) 01/12/23 06:43 Alkaline Phosphatase 67 U/L (35-105) 01/12/23 06:43 Total Protein 7.7 g/dL (6.6-8.7) 01/12/23 06:43 Albumin 4.7 g/dL (3.5-5.2) 01/12/23 06:43 Globulin 3.0 g/dL (1.3-4.6) 01/12/23 06:43 Lipase 43 U/L (13-60) 01/12/23 06:43 Urine Color Yellow (Yellow) 01/12/23 08:19 Urine Appearance Clear (CLEAR) 01/12/23 08:19 Urine pH 7 (5-7) 01/12/23 08:19 Ur Specific [place] 1.010 (1.005-1.030) 01/12/23 08:19 Urine Protein 3+ (Negative) H 01/12/23 08:19 Urine Glucose (UA) Norm (Normal) 01/12/23 08:19 Urine Ketones Negative (Negative) 01/12/23 08:19 Urine Blood 2+ (Negative) H 01/12/23 08:19 Urine Nitrate Negative (Negative) 01/12/23 08:19 Urine Bilirubin Neg (Negative) 01/12/23 08:19 Urine Urobilinogen Norm mg/dL (Negative) 01/12/23 08:19 Ur Leukocyte Esterase Trace (Negative) H 01/12/23 08:19 Urine RBC 0-4 /hpf (0-2) H 01/12/23 08:19 Urine WBC 0-4 /hpf (0-5) H 01/12/23 08:19 Ur Squamous Epith Cells 0-4 /hpf (0-5) H 01/12/23 08:19 Amorphous Sediment Not Reportable 01/12/23 08:19 Urine Bacteria 1+ /hpf (NONE) H 01/12/23 08:19 Urine Mucus Trace /hpf 01/12/23 08:19 Discharge Plan Discharge Patient Disposition: Admitted As Inpatient Admit Provider: Arnav Landrum Clinical Impression: Lumbar radiculopathy Condition: Stable Coding Level of Care Code 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
[2023-01-12 07:16] LABS: Alanine Aminotransferase 26 U/L (0-33); Albumin Level 4.7 g/dL (3.5-5.2); Alkaline Phosphatase 67 U/L (35-105); Anion Gap 23.4 (5-19); Aspartate Amino Transferase 23 U/L (0-32); Blood Urea Nitrogen 27 mg/dL (8-23); Calcium 9.9 mg/dL (8.5-10.5); Carbon Dioxide 21 mmol/L (22-29); Chloride 90 mmol/L (98-107); Glomerular Filtration Rate 55.3 mL/min (90-130); Glucose 182 mg/dL (65-115); Lipase 43 U/L (13-60); Osmolality Calculated 282 mOsm/kg (285-295); Potassium 3.4 mmol/L (3.5-5.1); Sodium 131 mmol/L (136-145); Total Bilirubin 1.2 mg/dL (0.15-1.2); Total Protein 7.7 g/dL (6.6-8.7)
[2023-01-12] MEDS: iohexol 350 mg/mL 500 mL Btl (per mL) IV (07:42)
[2023-01-12 08:47] LABS: Bilirubin Urine Neg (Negative); Blood Urine 2+ (Negative); Glucose Urine UA Norm (Normal); Ketones Urine Negative (Negative); Leukocyte Esterase Urine Trace (Negative); Nitrate Urine Negative (Negative); Protein Urine 3+ (Negative); Urine Appearance Clear (CLEAR); Urine Color Yellow (Yellow); Urobilinogen Urine Norm (Negative); pH Urine 7 (5-7)
[2023-01-12 08:48] LABS: Add Urine Culture? No; Add Urine Microscopic? YES; Bacteria Urine 1+ /hpf; Mucus Urine TRACE /hpf; RBC Urine 0-4 /hpf (0-2); Squamous Epithelial Cell Urine 0-4 /hpf (0-5); WBC Urine 0-4 /hpf (0-5)
[2023-01-12] MEDS: orphenadrine 30 mg/mL Inj 2 mL 60 MG IVP (10:17)
[2023-01-12] MEDS: HYDROmorphone 1 mg/mL INJ 1 mL IVP (11:05)
--- NOTE | 2023-01-12 12:12 | PM.HP ---
Providers/Chief Complaint Primary Care Provider: Ricky Hurt DO Chief Complaint: back pain, left leg numbness History of Present Illness Carisa Benitez is a 67 year old female with history of chronic back pain, presented with chief complaint of worsening of her pain and nausea. Patient has not been able to do it 3 days, she has been asked nursing nausea and is because of her back pain. She has not noticed falls or urinary incontinence. She is endorsing numbness left flank and left upper thigh area. She does have a metal implant in her foot from previous fracture when she fell due to mechanical fall In the ER her sodium was 131 potassium 3.4, creatinine 1.0 She has been given Decadron, MRI has been requested, MRI screening is needed Dr. Faria consulted Review of Systems Const: Reports: chills Eyes: Denies: change in vision ENMT: Denies: throat pain Card: Denies: chest pain Resp: Denies: dyspnea GI: Reports: nausea : Denies: flank pain Musc: Reports: back pain Skin/Breast: Denies: rash Neuro: Denies: headache(s) Psych: Reports: anxiety Medications/Allergies Home Medications Medication Instructions Recorded Confirmed Last Taken Type amlodipine 5 mg tablet 5 mg PO DAILY 08/30/21 01/12/23 01/09/23 History atorvastatin 40 mg tablet 40 mg PO DAILY 08/30/21 01/12/23 01/09/23 History cholecalciferol (vitamin D3) 1,250 50,000 unit PO .Montly 08/30/21 01/12/23 12/14/22 History mcg (50,000 unit) capsule ibuprofen 800 mg tablet 800 mg PO TID PRN Mild Pain (Scale 08/30/21 01/12/23 Unknown History Score 1-4) omeprazole 40 mg capsule,delayed 40 mg PO DAILY 08/30/21 01/12/23 01/09/23 History release tizanidine 2 mg tablet 2 mg PO TID PRN Muscle Spasticity 08/30/21 01/12/23 Unknown History Custom Molded Orthotics #1 ea 12/12/21 01/12/23 Unknown Rx escitalopram oxalate 10 mg tablet 10 mg PO DAILY 01/12/23 01/12/23 01/09/23 History (Lexapro) Allergies Allergy/AdvReac Type Severity Reaction Status Date / Time No Known Allergies Allergy Verified 01/12/23 06:14 PFSH Acute PFSH: Medical History HTN (hypertension) Hyperlipidemia Lisfranc fracture Surgical History S/P arthroscopic knee surgery (~2013) S/P bladder repair S/P foot surgery, right S/P hysterectomy (~1995) Family History Mother Heart disease Father Heart disease Cancer Brother Cancer Colon [place] Social History Smoking and tobacco status: never smoked Quit status (tobacco): has quit using tobacco Year quit tobacco: 1997 2 pack per day Former quit date comment: smoked for 30 years Alcohol intake: current Alcohol intake frequency: 3 or more drinks per day Alcohol type: beer Substance/Drug Use: never Lives independently: Yes Household members: spouse Housing: House Marital status: Number of children: 3 Pets and animals: No Vitals/I&O/Wt Last Vital Signs Temp 98 F 01/12/23 06:07 Pulse 70 01/12/23 11:30 Resp 18 01/12/23 11:30 BP 149/78 01/12/23 11:30 Pulse Ox 97 01/12/23 11:30 O2 Del Method Room Air 01/12/23 09:12 01/11/23 01/12/23 01/12/23 22:59 06:59 14:59 Intake Total 1000 / 1000 Balance 1000 / 1000 Weight last 48 hrs Weight 83.915 kg Physical Exam Narrative: Pleasant cooperative female Awake and alert S1, S2 Currently on room air Clinically very dry Abdomen soft Nonfocal neuro exam Lives in mucous membranes extremely dry No active emesis or chest pain at the bedside Pleasant and cooperative Data 01/12/23 06:43 01/12/23 06:43 A&P Assessment and plan (1) Lumbar radiculopathy, chronic: (2) Back pain: (3) Nausea: (4) Dehydration: Plan Back pain No signs of cauda equina I will start her on Decadron Start IV fluids MRI requested to rule out cauda equina syndrome however clinical no active signs Dr. Faria consulted I will keep her n.p.o. after midnight in case she goes to any surgical intervention MRI screening is needed Preoperative clearance: Patient does not have any history of coronary disease or stent placement, her physical activity is limited because of back pain, will request echo Nausea related to vasovagal response due to pain Start IV fluids I will keep her diet for now Zofran as needed Hypertension: Optimize antihypertensive regimen this could be related to pain as well Full code DVT prophylaxis on hold disposition of possible surgical invention if needed Attestations Medical Necessity Statement*: More than 2 midnights anticipated if possible surgical invention Diagnoses Lumbar radiculopathy, chronic M54.16 Back pain M54.9 Nausea R11.0 Dehydration E86.0
--- NOTE | 2023-01-12 12:49 | USCV_ITS ---
Carisa Benitez Age: 67 Gender: F : 1955 Exam Date: 01/12/2023 13:33 Ordering Phys: Arnav Landrum MD Technologist: Kevin Urban [place] [facility] [place]: preop BP: 132 / 72 HR: 146 Rhythm: Sinus Technical Quality: Suboptimal MEASUREMENTS (Male / Female) Normal Values 2D ECHO LV Ejection Fraction MOD 2C 78.3 % LV Ejection Fraction 2C AL 80.1 % IVC Diameter 1.1 cm DOPPLER AV Peak Velocity 125.0 cm/s LVOT Peak Velocity 100.0 cm/s MV Area PHT 3.3 cm squared Mitral E to A Ratio 0.7 MV E' Velocity 36.5 cm/s Mitral E to MV E' Ratio 7.4 Mitral E to LV E' Lateral Ratio 6.8 Mitral E to LV E' Septal Ratio 8.0 TR Peak Velocity 157.0 cm/s TR Peak Gradient 9.9 mmHg TV Peak E Velocity 68.0 cm/s Right Atrial Pressure 3.0 mmHg Pulmonary Artery Systolic Pressu 12.9 mmHg FINDINGS Left Ventricle Normal left ventricular size and systolic function, EF 76 %. No regional wall motion abnormalities. Grade I/IV diastolic dysfunction (abnormal relaxation filling pattern), normal to mildly elevated filling pressures. Right Ventricle The right ventricle is normal in size and function. Right Atrium The right atrium is normal in size. Left Atrium The left atrium is normal in size. Mitral Valve No gross abnormalities noted Aortic Valve No gross abnormalities noted Tricuspid Valve No gross abnormalities noted Pulmonic Valve No gross abnormalities noted Pericardium Normal pericardium without effusion. Aorta Normal ascending aorta dimension. IVC The inferior vena cava appears normal. CONCLUSIONS Normal left ventricular size and systolic function, EF 76 %. No regional wall motion abnormalities. Grade I/IV diastolic dysfunction (abnormal relaxation filling pattern), normal to mildly elevated filling pressures. Normal cardiac chamber sizes. No significant valvular abnormalities. No pericardial effusion. No intracardiac masses. No similar previous studies are available for comparison Dr Massiel Caldwell MD [facility] (Electronically Signed) Final Date: 12 January 2023 23:25 S
--- NOTE | 2023-01-12 13:35 | P.CONIM_ITS ---
Providers/Reason For Consult Consulting Physician/Specialty*: Ortho spine Reason for Consult*: Back and left leg pain Attending Physician: Arnav Landrum MD Primary Care Provider: Ricky Hurt DO History of Present Illness History of Present Illness Carisa Benitez is a 67 year old female who presented to the emergency room with increased back and leg pain. She was evaluated in room 261 after being consulted for her back and leg pain. She states that November 13, 2022 the pain in her back and right leg became uncomfortable as she was traveling to [place]. She did receive a prednisone taper dose that relieved her right leg pain but in the last few weeks the pain in her left leg has became unbearable. She describes equal back and left leg pain that travels down to her toes. Any use of the left leg makes it much worse. Rest has not helped either. The medicatio n she is received in the emergency room has given her some tolerable relief. She denies any loss of bowel or bladder control. Denies any falls. Describes the pain as sharp stabbing travels down the left leg all the way to her foot. Prior to the medication reported 8 out of 10 on the pain scale. Review of Systems Const: Reports: chills Eyes: Denies: change in vision ENMT: Denies: throat pain Card: Denies: chest pain Resp: Denies: dyspnea GI: Reports: nausea : Denies: flank pain Musc: Reports: back pain Skin/Breast: Denies: rash Neuro: Denies: headache(s) Psych: Reports: anxiety Medications/Allergies Home Medications Medication Instructions Recorded Confirmed Last Taken Type amlodipine 5 mg tablet 5 mg PO DAILY 08/30/21 01/12/23 01/09/23 History atorvastatin 40 mg tablet 40 mg PO DAILY 08/30/21 01/12/23 01/09/23 History cholecalciferol (vitamin D3) 1,250 50,000 unit PO .Montly 08/30/21 01/12/23 12/14/22 History mcg (50,000 unit) capsule ibuprofen 800 mg tablet 800 mg PO TID PRN Mild Pain (Scale 08/30/21 01/12/23 Unknown History Score 1-4) omeprazole 40 mg capsule,delayed 40 mg PO DAILY 08/30/21 01/12/23 01/09/23 History release tizanidine 2 mg tablet 2 mg PO TID PRN Muscle Spasticity 08/30/21 01/12/23 Unknown History Custom Molded Orthotics #1 ea 12/12/21 01/12/23 Unknown Rx escitalopram oxalate 10 mg tablet 10 mg PO DAILY 01/12/23 01/12/23 01/09/23 History (Lexapro) Allergies Allergy/AdvReac Type Severity Reaction Status Date / Time No Known Allergies Allergy Verified 01/12/23 06:14 PFSH Acute PFSH: Medical History HTN (hypertension) Hyperlipidemia Lisfranc fracture Surgical History S/P arthroscopic knee surgery (~2013) S/P bladder repair S/P foot surgery, right S/P hysterectomy (~1995) Family History Mother Heart disease Father Heart disease Cancer Brother Cancer Colon [place] Social History Smoking and tobacco status: never smoked Quit status (tobacco): has quit using tobacco Year quit tobacco: 1997 2 pack per day Former quit date comment: smoked for 30 years Alcohol intake: current Alcohol intake frequency: 3 or more drinks per day Alcohol type: beer Substance/Drug Use: never Lives independently: Yes Household members: spouse Housing: House Marital status: Number of children: 3 Pets and animals: No Vitals/I&O/Wt Last Vital Signs Temp 98 F 01/12/23 06:07 Pulse 72 01/12/23 12:52 Resp 16 01/12/23 11:45 BP 128/76 01/12/23 12:52 Pulse Ox 94 01/12/23 12:52 O2 Del Method Room Air 01/12/23 09:12 01/11/23 01/12/23 01/12/23 22:59 06:59 14:59 Intake Total 1999 Balance 1999 Weight last 48 hrs Weight 185 lb Weight 185 lb Physical Exam Narrative: She is alert and orient x3 she has good general appearance normal mood and affect. Full range of motion of the cervical spine both upper extremities at the shoulders elbows and wrist. No palpable pain about the cervical or thoracic spine. Normal sensation light touch down both upper extremities hands warm good cap refill radial pulses are palpable. Palpable pain in the low back that travels down the left buttock left leg. Negative logroll bilaterally. Positive straight leg raise on the left negative on the right. She has good sensation down both lower extremities feet are warm good cap refill calves are supple no medial thigh tenderness. She appears to fire in all motor groups with good strength. Dorsalis pedis and posterior tibial pulses are weak but palpable. Reflexes are 1+ and symmetric about the knees and the ankle. HENMT: COMMON NORMALS: normocephalic and atraumatic HEAD & SCALP: normocephalic and atraumatic Resp: COMMON NORMALS: normal respiratory effort Cardio: COMMON NORMALS: regular rate and regular rhythm RATE: regular rate RHYTHM: regular rhythm GI: COMMON NORMALS: Soft to palpation and non-tender PALPATION: Yes Soft to palpation : COMMON NORMALS: Yes no CVA tenderness BLADDER/KIDNEY EXAM: Yes no CVA tenderness Back/Pelvis: COMMON NORMALS: no CVA tenderness Psych: COMMON NORMALS: mental status grossly normal and cooperative Data 01/12/23 06:43 01/12/23 06:[address]: Radiologist's impression: CT/CT lumbar spine wo con* [id number] IMPRESSION: 1. ? No acute fracture or traumatic malalignment in the lumbar spine. 2. ? Multilevel degenerative changes in the lumbar spine. 3. ? Bilateral neural foraminal narrowing at L3-L4 and L4-L5. A&P Assessment and plan (1) Lumbar radiculopathy: Reviewed the CT scan which shows multilevel degenerative disc disease with vacuum disc phenomenon L3-4 L4-5 advanced collapse with degenerative changes at L1-2. Patient has received a dose of Decadron that has given her good tolerable relief. Patient presents with equal back and left lower extremity pain would recommend an MRI scan of her lumbar spine without contrast. More than 50% of the time spent with the patient today involved coordination of care, counseling and discussion of conservative versus surgical treatment options. Total amount of time spent with the patient was 32 minutes. (2) DDD (degenerative disc disease), lumbar: Coding Level of Care Code Acute Code for [facility] Diagnoses Lumbar radiculopathy M54.16 DDD (degenerative disc disease), lumbar M51.36 Time Spent (min) 32
[2023-01-12] MEDS: dexamethasone 4 mg Tablet PO ×2 (14:40→20:19)
[2023-01-12] MEDS: HYDROmorphone 1 mg/mL INJ 1 mL 0.2 MG IVP ×3 (14:40→22:24)
[2023-01-12] MEDS: oxyCODONE-APAP 10-325 mg Tablet 1 TAB PO (19:28)
[2023-01-13] VITALS (15 sets, daily range): BP systolic 124–150; BP diastolic 80–92; PULSE 52–80; RESP 16–24; TEMP 36.6–37.1; O2SAT 94–98
[2023-01-13] MEDS: HYDROmorphone 1 mg/mL INJ 1 mL 0.2 MG IVP ×5 (02:31→19:45)
[2023-01-13 04:36] LABS: Basophils % 0.1 %; Hematocrit 39.1 % (37.0-47.0); Hemoglobin 12.9 g/dL (11.5-15.3); Lymphocytes # 0.8 10^3/uL (0.8-4.8); Lymphocytes % 5.6 %; Mean Corpuscular Hemoglobin 30.3 pg (28.0-34.0); Mean Corpuscular Volume 91.8 fl (81-99); Mean Platelet Volume 9.6 fL (7.4-10.4); Monocytes # 0.5 10^3/uL (0.2-0.9); Monocytes % 3.2 %; Neutrophils # 12.93 10^3/uL (1.8-7.7); Neutrophils % 90.6 %; Nucleated Red Blood Cells % 0 %; Platelet Count 310 10^3/cmm (130-400); Red Blood Count 4.26 10^6/uL (4.1-5.3); Red Cell Distribution Width 13.5 % (12.1-15.1); White Blood Count 14.3 10^3/uL (4.0-10.0)
[2023-01-13 04:43] LABS: Anion Gap 15.3 (5-19); Blood Urea Nitrogen 24 mg/dL (8-23); Calcium 8.9 mg/dL (8.5-10.5); Carbon Dioxide 24 mmol/L (22-29); Chloride 97 mmol/L (98-107); Glomerular Filtration Rate 99.7 mL/min (90-130); Glucose 148 mg/dL (65-115); Magnesium 1.9 mg/dL (1.7-2.3); Osmolality Calculated 283 mOsm/kg (285-295); Potassium 3.3 mmol/L (3.5-5.1); Sodium 133 mmol/L (136-145)
[2023-01-13] MEDS: amlodipine 5 mg Tablet PO (08:52)
[2023-01-13] MEDS: sennosides-docusate Tablet 1 TAB PO (08:52)
[2023-01-13] MEDS: dexamethasone 4 mg Tablet PO ×3 (08:53→20:41)
--- NOTE | 2023-01-13 09:30 | MR_ITS ---
WS: [id number] MRI LUMBAR SPINE NONCONTRAST TECHNIQUE: Sagittal T1, T2 and STIR imaging. Axial T1 and T2 imaging. CLINICAL INFORMATION: back pain COMPARISON: CT January 12, 2023 FINDINGS: Mild lumbar curve. No acute compression. Disc bulging worse at L2-L3. Severe central canal stenosis L 2-L3 with a central disc protrusion in combination with facet arthropathy ligamentum flavum hypertrop hy. Impingement traversing L3 nerve roots bilaterally. Redundancy of the cauda equina nerve rootlets. L1-L2: Mild annular bulging with slight effacement of the ventral thecal sac. Impingement traversing L2 nerve root with moderate facet arthropathy. Moderate RIGHT and mild LEFT foraminal narrowing. L2-L3: Severe central canal stenosis with shallow central disc protrusion. Moderate facet arthropathy . Impingement traversing L3 nerve roots bilaterally. Moderate LEFT foraminal narrowing. Mild RIGHT fo raminal narrowing. L3-L4: Disc desiccation with moderate central canal stenosis. Impingement traversing L4 nerve roots b ilaterally. Moderate facet arthropathy. Mild RIGHT and no significant LEFT foraminal narrowing. L4-L5: Mild disc bulging with impingement traversing RIGHT greater than LEFT L5 nerve roots. Moderate facet arthropathy. Moderate RIGHT foraminal narrowing. Impingement traversing RIGHT L5 nerve root. L5-S1: Mild disc bulging with slight effacement of ventral thecal sac. Slight impingement traversing LEFT S1 nerve root. Moderate LEFT and no significant RIGHT foraminal narrowing. Moderate facet arthro martir. Visualized pelvic bony structures: Normal. Paravertebral soft tissues: Normal. Small bilateral renal cysts. MR/MR lumbar spine wo con* [id number] IMPRESSION: 1. Severe central canal stenosis L2-L3 with central disc protrusion in combina tion with facet arthropathy and ligamentum flavum hypertrophy. Impingement armani ersing L3 nerve roots. 2. Moderate central canal stenosis L3-L4. 3. Mild central canal stenosis L4-L5 with impingement traversing RIGHT L5 nerv e root. 4. Moderate LEFT L2-L3 foraminal narrowing. 5. Mild RIGHT L3-L4 and moderate RIGHT L4-L5 foraminal narrowing. 6. Moderate LEFT L5-S1 foraminal narrowing. 7. Moderate facet arthropathy throughout the lumbar spine.
--- NOTE | 2023-01-13 12:02 | PM.PN ---
Subjective Subjective: Hypokalemia noted, low sodium, white count 14,000 Patient is stating that pain this morning is 4/10 Awaiting MRI report Magnesium 1.9 Afebrile No urine incontinence or in sensation medial thigh area Patient has been kept n.p.o. in case she will require any intervention Vitals/I&O/Wt Last Vital Signs Temp 98.7 F 01/13/23 11:43 Pulse 80 01/13/23 11:43 Resp 18 01/13/23 11:43 BP 150/92 01/13/23 11:43 Pulse Ox 97 01/13/23 11:43 O2 Del Method Room Air 01/13/23 11:43 01/12/23 01/13/23 01/13/23 22:59 06:59 14:59 Intake Total 480 / 2480 Balance 480 / 2480 Weight last 48 hrs Weight 83.915 kg Weight 83.915 kg Physical Exam Narrative: Patient is doing well Pain well managed No sign of cauda equina S1, S2 Clinically dehydrated Abdomen soft Currently on room air Pleasant and cooperative GCS 15 Nonfocal neuro exam Data 01/13/23 03:45 01/13/23 03:45 A&P Assessment and plan (1) Hypokalemia: (2) DDD (degenerative disc disease), lumbar: (3) Lumbar radiculopathy: (4) Dehydration: (5) Nausea: (6) Back pain: (7) Lumbar radiculopathy, chronic: Plan Back pain with radiculopathy No signs of cauda equina Awaiting MRI report She is n.p.o. in case she requires any intervention Continue Decadron Opioids with bowel regimen Dehydration continue IV fluid hydration She is n.p.o. Hypertension: Optimize antihypertensive regimen Full code Further team will be made after reviewing her MRI report No evidence of nausea or vomiting Attestations Medical Necessity Statement*: Continue hospitalization Diagnoses Hypokalemia E87.6 DDD (degenerative disc disease), lumbar M51.36 Lumbar radiculopathy M54.16 Dehydration E86.0 Nausea R11.0 Back pain M54.9 Lumbar radiculopathy, chronic M54.16
[2023-01-13] MEDS: metoprolol tartrate 25 mg Tablet PO (12:57)
[2023-01-13] MEDS: sodium chloride 0.9% 1,000 ML 75 ML IV (12:57)
[2023-01-13] MEDS: oxyCODONE-APAP 10-325 mg Tablet 1 TAB PO (19:44)
[2023-01-13] MEDS: tizanidine 4 mg Tablet 2 MG PO (19:45)
[2023-01-13] MEDS: HYDROmorphone 1 mg/mL INJ 1 mL 0.8 MG IVP (20:11)
[2023-01-14] VITALS (17 sets, daily range): BP systolic 129–156; BP diastolic 79–92; PULSE 50–70; RESP 15–24; TEMP 36.5–36.6; O2SAT 94–99
[2023-01-14] MEDS: HYDROmorphone 1 mg/mL INJ 1 mL 0.8 MG IVP ×7 (00:32→23:55)
[2023-01-14] MEDS: sodium chloride 0.9% 1,000 ML 75 ML IV (00:43)
[2023-01-14 05:00] LABS: Anion Gap 15.6 (5-19); Blood Urea Nitrogen 30 mg/dL (8-23); Calcium 8.6 mg/dL (8.5-10.5); Carbon Dioxide 22 mmol/L (22-29); Chloride 101 mmol/L (98-107); Glomerular Filtration Rate 123.1 mL/min (90-130); Glucose 144 mg/dL (65-115); Osmolality Calculated 289 mOsm/kg (285-295); Potassium 3.6 mmol/L (3.5-5.1); Sodium 135 mmol/L (136-145)
[2023-01-14] MEDS: oxyCODONE-APAP 10-325 mg Tablet 1 TAB PO ×2 (06:16→10:42)
--- NOTE | 2023-01-14 07:43 | PM.PN ---
Subjective Subjective: Patient resting comfortably. Does report continued left hip and thigh pain. She does continue to report previously she had right sided pain all of her symptoms are on the left. Vitals/I&O/Wt Last Vital Signs Temp 97.9 F 01/14/23 03:58 Pulse 61 01/14/23 03:58 Resp 20 H 01/14/23 06:16 BP 129/79 01/14/23 03:58 Pulse Ox 95 01/14/23 06:16 O2 Del Method Room Air 01/14/23 03:58 01/13/23 01/14/23 01/14/23 22:59 06:59 14:59 Intake Total 480 / 480 882.5 / 1362.5 Balance 480 / 480 882.5 / 1362.5 Weight last 48 hrs Weight 185 lb Physical Exam Narrative: She is alert and orient x3 has a good general appearance normal mood and affect. Pain with palpation over the left buttock and left thigh region both laterally and medially. She is weak with leg raise on the left. Pain with light touch through the left thigh over the left knee. She appears to fire in all motor groups equally. Wiggles all toes dorsalis pedis posterior pulses are palpable. Moderate palpatory pain in the lumbar region. Worse on the left than the right. HENMT: COMMON NORMALS: normocephalic HEAD & SCALP: normocephalic Resp: COMMON NORMALS: normal respiratory effort Cardio: COMMON NORMALS: regular rate and regular rhythm RATE: regular rate RHYTHM: regular rhythm GI: COMMON NORMALS: Soft to palpation and non-tender PALPATION: Yes Soft to palpation : COMMON NORMALS: Yes no CVA tenderness BLADDER/KIDNEY EXAM: Yes no CVA tenderness Back/Pelvis: COMMON NORMALS: no CVA tenderness Psych: COMMON NORMALS: mental status grossly normal and cooperative Data 01/13/23 03:45 01/14/23 04:33 MRI: Radiologist's impression: MR/MR lumbar spine wo con* [id number] IMPRESSION: ? 1.? Severe central canal stenosis L2-L3 with central disc protrusion in combination with facet arthropathy and ligamentum flavum hypertrophy. Impingement traversing L3 nerve roots. 2.? Moderate central canal stenosis L3-L4. 3.? Mild central canal stenosis L4-L5 with impingement traversing RIGHT L5 nerve root. 4.? Moderate LEFT L2-L3 foraminal narrowing. 5.? Mild RIGHT L3-L4 and moderate RIGHT L4-L5 foraminal narrowing. 6.? Moderate LEFT L5-S1 foraminal narrowing. 7.? Moderate facet arthropathy throughout the lumbar spine. ? A&P Assessment and plan (1) Herniated nucleus pulposus, L2-3 left: Reviewed the MRI scan at length with the patient. Discussed treatment options that involve physical therapy, outpatient injections at the pain clinic versus surgical or invention. She has a space-occupying disc herniation to the left at L2-3 consistent with her symptoms. She would like to discuss with her which is very reasonable. I discussed the possibility of operative decompression on 01/15/2023 should she wish to proceed. 1230 reported back to Ms. Benitez's room 261 with family present the son and the father had questions regarding surgical intervention. I showed them the MRI scan showed them the disc herniation to the left at L2-3 but also the stenosis at L3-4. Discussed operative intervention that involved a microdiscectomy at L2-3 possibly to the left at L3-4. Discussed with him at length Dr. Faria would make final decision as to what his recommendation surgically would be. They would like to move forward with surgical intervention. I will make her n.p.o. after midnight and the family will further discuss treatment options tomorrow with Dr. Faria. More than 50% of the time spent with the patient today involved coordination of care, counseling and discussion of conservative versus surgical treatment options. Total amount of time spent with the patient was 15 minutes. (2) Spinal stenosis, lumbar region, with neurogenic claudication: (3) Lumbar radiculopathy, acute: Attestations Medical Necessity Statement*: Patient is deciding on whether she wants to proceed with surgical intervention. Coding Level of Care Code Acute Code for [facility] Fwd Diagnoses Herniated nucleus pulposus, L2-3 left M51.26 Spinal stenosis, lumbar region, with neurogenic claudication M48.062 Lumbar radiculopathy, acute M54.16
[2023-01-14] MEDS: dexamethasone 4 mg Tablet PO ×3 (10:37→20:58)
[2023-01-14] MEDS: sennosides-docusate Tablet 1 TAB PO (10:37)
[2023-01-14] MEDS: amlodipine 10 mg Tablet PO (10:38)
[2023-01-14] MEDS: metoprolol tartrate 25 mg Tablet PO (10:38)
[2023-01-14] MEDS: tizanidine 4 mg Tablet 2 MG PO (10:42)
--- NOTE | 2023-01-14 11:32 | P.DS_ITS ---
Discharge Providers Date of Admission: 01/12/23 10:43 Date of Discharge: January 14, 2023 Attending Provider at Admission: Arnav Landrum MD Attending Provider at Discharge: Arnav Landrum MD Primary Care Provider: Ricky Hurt DO Diagnoses at Discharge Discharge Diagnosis (1) Herniated nucleus pulposus, L2-3 left: Status: Acute (2) Spinal stenosis, lumbar region, with neurogenic claudication: Status: Acute (3) Lumbar radiculopathy, acute: Status: Acute Reason for Visit Reason for Visit: back pain, left leg numbness Hospital Course Hospital Course This is a summary of consultation note from orthopedics Carisa Benitez is a 67 year old female who presented to the emergency room with increased back and leg pain.? She states that November 13, 2022 the pain in her back and right leg became uncomfortable as she was traveling to [place].? She did receive a prednisone taper dose that relieved her right leg pain but in the last few weeks the pain in her left leg has became unbearable.? She describes equal back and left leg pain that travels down to her toes.? Any use of the left leg makes it much worse.? Rest has not helped either.? The medication she is recei johanna in the emergency room has given her some tolerable relief.? She denies any loss of bowel or bladder control.? Denies any falls.? Describes the pain as sharp stabbing travels down the left leg all the way to her foot 1.? Severe central canal stenosis L2-L3 with central disc protrusion in combination with facet arthropathy and ligamentum flavum hypertrophy. Impingement traversing L3 nerve roots. 2.? Moderate central canal stenosis L3-L4. 3.? Mild central canal stenosis L4-L5 with impingement traversing RIGHT L5 nerve root. 4.? Moderate LEFT L2-L3 foraminal narrowing. 5.? Mild RIGHT L3-L4 and moderate RIGHT L4-L5 foraminal narrowing. 6.? Moderate LEFT L5-S1 foraminal narrowing. 7.? Moderate facet arthropathy throughout the lumbar spine. Patient was given different treatment options including physical therapy, outpatient trigger injections at the pain clinic versus surgical intervention she does have space-occupying disc herniation and she is experiencing excruciating pain in her thigh there is L5 nerve impingement as well, patient opted for surgical intervention Status post L2/L3 laminectomy and partial fissurectomy with discectomy, L3-L4 laminectomy with partial factectomy No postoperative complications, patient is wanting to go home with home health services I will prescribe her opioids and bowel regimen and follow-up with Dr. Faria outpatient Patient was happy with the progress Of note patient develops bradycardia overnight most likely she has untreated sleep apnea, hemodynamically stable otherwise, no active chest pain shortness of breath or confusion. Physical Exam Narrative: Patient is doing well Pain well managed, patient took a shower, No sign of cauda equina S1, S2 Clinically dehydrated: Improved Abdomen soft Currently on room air Pleasant and cooperative GCS 15 Nonfocal neuro exam Discharge Data Studies Completed and Pending Completed Studies During Hospitalization Category Date Time Status CT abdomen pelvis w con* [id number] Stat Cat Scan 01/12/23 06:[address] lumbar spine wo con* [id number] Stat Cat Scan 01/12/23 06:40 Completed MR lumbar spine wo con* [id number] Routine MRI 01/13/23 09:30 Completed CV. echo complete* [id number] Routine Ultrasound 01/12/23 12:49 Completed Radiology Impressions Abdomen/Pelvis CT 01/12/23 06:40 IMPRESSION: 1. No acute abdominopelvic abnormality identified. 2. Colonic diverticulosis without signs of acute diverticulitis. COMMENTS: Consistent with the [place] [employer]'s Incidental Findings Committee white paper (J Am Erick Radiol 2018): Any incidental renal lesion less than 1 cm or classified as too small to characterize, or any incidental cystic renal lesion characterized as simple-appearing, is likely benign. No follow-up imaging is recommended for these lesions per consensus recommendations based on imaging criteria. Lumbar Spine CT 01/12/23 06:40 IMPRESSION: 1. No acute fracture or traumatic malalignment in the lumbar spine. 2. Multilevel degenerative changes in the lumbar spine. 3. Bilateral neural foraminal narrowing at L3-L4 and L4-L5. Lumbar Spine MRI 01/13/23 09:30 IMPRESSION: 1. Severe central canal stenosis L2-L3 with central disc protrusion in combination with facet arthropathy and ligamentum flavum hypertrophy. Impingement traversing L3 nerve roots. 2. Moderate central canal stenosis L3-L4. 3. Mild central canal stenosis L4-L5 with impingement traversing RIGHT L5 nerve root. 4. Moderate LEFT L2-L3 foraminal narrowing. 5. Mild RIGHT L3-L4 and moderate RIGHT L4-L5 foraminal narrowing. 6. Moderate LEFT L5-S1 foraminal narrowing. 7. Moderate facet arthropathy throughout the lumbar spine. Laboratory Results WBC 14.3 10^3/uL (4.0-10.0) H 01/13/23 03:45 RBC 4.26 10^6/uL (4.1-5.3) 01/13/23 03:45 Hgb 12.9 g/dL (11.5-15.3) 01/13/23 03:45 Hct 39.1 % (37.0-47.0) 01/13/23 03:45 MCV 91.8 fl (81-99) 01/13/23 03:45 MCH 30.3 pg (28.0-34.0) 01/13/23 03:45 MCHC 33.0 g/dL (30.0-36.0) D 01/13/23 03:45 RDW 13.5 % (12.1-15.1) 01/13/23 03:45 Plt Count 310 10^3/cmm (130-400) 01/13/23 03:45 MPV 9.6 fL (7.4-10.4) 01/13/23 03:45 Neut % (Auto) 90.6 % 01/13/23 03:45 Lymph % (Auto) 5.6 % 01/13/23 03:45 Pope % (Auto) 3.2 % 01/13/23 03:45 Eos % (Auto) 0.0 % 01/13/23 03:45 Baso % (Auto) 0.1 % 01/13/23 03:45 Neut # (Auto) 12.93 10^3/uL (1.8-7.7) H 01/13/23 03:45 Lymph # (Auto) 0.8 10^3/uL (0.8-4.8) 01/13/23 03:45 Pope # (Auto) 0.5 10^3/uL (0.2-0.9) 01/13/23 03:45 Eos # (Auto) 0.0 10^3/uL (0.0-0.8) 01/13/23 03:45 Baso # (Auto) 0.0 10^3/uL (0.0-0.1) 01/13/23 03:45 Nucleated RBC % (auto) 0 % 01/13/23 03:45 Nucleated RBCs # 0.0 /100WBC 01/13/23 03:45 Sodium 135 mmol/L (136-145) L 01/14/23 04:33 Potassium 3.6 mmol/L (3.5-5.1) 01/14/23 04:33 Chloride 101 mmol/L (98-107) 01/14/23 04:33 Carbon Dioxide 22 mmol/L (22-29) 01/14/23 04:33 Anion Gap 15.6 (5-19) 01/14/23 04:33 BUN 30 mg/dL (8-23) H 01/14/23 04:33 Creatinine 0.5 mg/dL (0.5-0.9) 01/14/23 04:33 GFR Calculation 123.1 mL/min (90-130) 01/14/23 04:33 Glucose 144 mg/dL (65-115) H 01/14/23 04:33 Calculated Osmolality 289 mOsm/kg (285-295) 01/14/23 04:33 Calcium 8.6 mg/dL (8.5-10.5) 01/14/23 04:33 Magnesium 1.9 mg/dL (1.7-2.3) 01/13/23 03:45 Total Bilirubin 1.2 mg/dL (0.15-1.2) 01/12/23 06:43 AST 23 U/L (0-32) 01/12/23 06:43 ALT 26 U/L (0-33) 01/12/23 06:43 Alkaline Phosphatase 67 U/L (35-105) 01/12/23 06:43 Total Protein 7.7 g/dL (6.6-8.7) 01/12/23 06:43 Albumin 4.7 g/dL (3.5-5.2) 01/12/23 06:43 Globulin 3.0 g/dL (1.3-4.6) 01/12/23 06:43 Lipase 43 U/L (13-60) 01/12/23 06:43 Urine Color Yellow (Yellow) 01/12/23 08:19 Urine Appearance Clear (CLEAR) 01/12/23 08:19 Urine pH 7 (5-7) 01/12/23 08:19 Ur Specific [place] 1.010 (1.005-1.030) 01/12/23 08:19 Urine Protein 3+ (Negative) H 01/12/23 08:19 Urine Glucose (UA) Norm (Normal) 01/12/23 08:19 Urine Ketones Negative (Negative) 01/12/23 08:19 Urine Blood 2+ (Negative) H 01/12/23 08:19 Urine Nitrate Negative (Negative) 01/12/23 08:19 Urine Bilirubin Neg (Negative) 01/12/23 08:19 Urine Urobilinogen Norm mg/dL (Negative) 01/12/23 08:19 Ur Leukocyte Esterase Trace (Negative) H 01/12/23 08:19 Urine RBC 0-4 /hpf (0-2) H 01/12/23 08:19 Urine WBC 0-4 /hpf (0-5) H 01/12/23 08:19 Ur Squamous Epith Cells 0-4 /hpf (0-5) H 01/12/23 08:19 Amorphous Sediment Not Reportable 01/12/23 08:19 Urine Bacteria 1+ /hpf (NONE) H 01/12/23 08:19 Urine Mucus Trace /hpf 01/12/23 08:19 Vitals Last Vital Signs Temp 97.7 F 01/14/23 08:00 Pulse 51 L 01/14/23 08:35 Resp 17 01/14/23 10:42 BP 150/92 01/14/23 08:00 Pulse Ox 98 01/14/23 08:35 O2 Del Method Room Air 01/14/23 08:35 Discharge Plan Discharge Patient Disposition: Home Condition: Stable Prescriptions: New hydrocodone-acetaminophen 5-325 mg Tablet 1 tab PO Q4H PRN (Reason: Moderate To Severe Pain) Qty: 20 0RF sennosides-docusate sodium [Stool Softener-Laxative] 8.6-50 mg Tablet 1 tab PO DAILY Qty: 30 0RF Continued ibuprofen 800 mg tablet 800 mg PO TID PRN (Reason: Mild Pain (Scale Score 1-4)) cholecalciferol (vitamin D3) 1,250 mcg (50,000 unit) capsule 50,000 unit PO .Montly Rx Instructions: 1st of the month omeprazole 40 mg capsule,delayed release(DR/EC) 40 mg PO DAILY tizanidine 2 mg tablet 2 mg PO TID PRN (Reason: Muscle Spasticity) atorvastatin 40 mg tablet 40 mg PO DAILY amlodipine 5 mg tablet 5 mg PO DAILY (DME) Custom Molded Orthotics See Rx Instructions .Route .MEDSUPPLY Qty: 1 0RF Rx Instructions: As directed Lexapro 10 mg Tablet 10 mg PO DAILY Discharge Orders: Discharge Order (Routine); Ordered 01/16/23 Ordered By: Arnav Landrum Referrals: Viktor aFria DO [Physician] - 01/23/23 3:00 pm (Please arrive 15 minutes early.) Ricky Hurt DO [Primary Care Provider] - 01/20/23 11:40 am Discharge Diet: Advance as tolerated Discharge Activity: Limit activity as instructed Patient Instructions: Opioid Safety Activity Restrictions/Additional Instructions: Thank you for choosing [facility] for your care! The following is a list of instructions, from your provider, to follow upon your discharge to ensure you have the optimal recovery from your recent injury or surgery. Follow-up care is a seaman part of your treatment and safety. Be sure to make and go to all appointments and call your doctor if you are having problems. If you do not already have a follow-up appointment made, call Dr. Faria's] office in the next 1-3 days to make follow up appointment for 1 weeks at [phone]. It is also a good idea to know your test results and keep a list of the medicines you take. Medications will be prescribed for you at your provider's discretion. These medications are to be used as instructed; if they are taken more often that prescribed they will not be refilled early and in most cases will not be refilled at all. > When a refill is needed,you should contact our office 2-3 business days before your prescription runs out. Medications will NOT be refilled by toll transmission worker providers after hours! > Many pain medications contain Tylenol (Acetaminophen). Do not consume more than 4,000 mg of Tylenol per day in total with any combination ofmedications. > Pain medications can cause constipation. Please use an over the counter stool softener as directed, while taking pain medications. Consult your local pharmacist with questions or recommendations on stool softeners. If constipation persists, contact our office or your primary care provider. > While under our care, you are not to receive pain medications or other controlled substances from any other provider unless our office is notified and approves. Any attempts to do so will result in refusal to prescribe any further pain medications and possible dismissal from our practice. Your wound and/or dressing should remain clean and dry for 2 days afte r surgery. On postoperative day 2 (48 hours after your surgery) the dressing (if present) should be removed and it is okay to shower and get the incision wet. Pad dry afterwards. No further dressing should be required from that point on. Do not put any creams or ointments on the incision > It is normal for there to be a small amount of discharge (bloody or blood tinged) present from a surgical wound for the first 1-3days. > The wound should be examined twice a day for signs of infection. Mild redness or bruising is to be expected but indications that an infection maybe starting would include; An increase in redness, swelling, or discharge, a foul odor present around the incision, and/or a fever greater than 101 ?F ? Showering is permitted, however we ask that you do not take a bath, sit in a whirlpool / Jacuzzi, or go swimming for 1 month. For only the first 2 days after surgery, lt will be necessary for you to cover your wound/dressing with plastic and tape to keep it dry. ? Walking is essential for the healing process after surgery. We would like you to slowly advance your walking. This should be done on relatively flat clear ground (inside or out) or can be done on a treadmill. Remember this goal does not have to happen all at once, slowly increase your distance and duration. This can be broken into more more than one walk per day as tolerated. Patients who walk as directed after surgery rarely require Physical Therapy. In the unlikely event this issue arises your provider will direct hospital staff to make the appropriate arrangements. ? No lifting over 5 pounds {a gallon of milk) or bending/twisting until further notice. Each of these activities places an unnecessary amount of stress onto the body and can impede the delicate healing process. > Instead of bending at the waist, keep your back straight and bend at the knees. > Instead of twisting your torso, keep your back straight and turn your entire body with your feet. ? You may sleep in any position which makes you comfortable. Many patients find comfort sleeping in a reclining chair. It is not abnormal to have difficulty sleeping for the first several weeks following your surgery. We recommend trying Benadry! or Tylenol PM as directed to help with your sleeping difficulties. Both medications are over the counter and available without pre scription. ? NO SMOKING!!! Smoking dramatically increases the probability of developing postoperative wound infections. ? Common complaints after lumbar and/or thoracic spine surgery include, but are not limited to: numbness and/or tingling in the legs, pain around the incision and surrounding tissues, muscle spasms, or stiffness of the middle to low back. Contact our office if these symptoms persist or if an acute change occurs. ? No driving for the first 3-5days, and not while taking narcotics until seen at your follow-up appointment and cleared. There are no restrictions for riding on short trips, however if you take a longer trip, arrangements should be made to make regular stops to get out of the vehicle and stretch . ? Swelling is an unfortunate event that will take place with any surgery and is the primary source of your postoperative discomfort. While walking and regular approved activities helps control inflammation, there are additional steps you can take to minimize swelling. > Place ice over the surgical site and surrounding tissue for twenty minutes, followed by applying a low/medium heat (heating pad) for an additional twenty minutes every 1-2 hours as needed for painrelief. > You may use of over the counter anti-inflammatory medications (Ibuprofen, Motrin, Aleve, Advil, etc) as directed on the package label. These types of medicines wm significantly reduce the amount of discomfort you experience after surgery from swelling. It should be noted that if you have and allergy to any of these medications, or a history of ulcers or kidney disease you should consult you primary care provider prior to starting these medications. Discharge Attestations Time Spent in Discharge Care*: greater than 30 min Quality Metrics Clinical Quality Measures [ No reported AMI, CVA or VTE this stay] Coding Level of Care Code Acute Code for [facility] Fwd Diagnoses Herniated nucleus pulposus, L2-3 left M51.26 Spinal stenosis, lumbar region, with neurogenic claudication M48.062 Lumbar radiculopathy, acute M54.16
--- NOTE | 2023-01-14 11:37 | P.PN_ITS ---
Subjective Subjective: Patient was taking shower IV line came out, bleeding stopped with pressure dressing Patient sitting back pain is slightly better is at the bedside waiting for orthopedic physician cafe assistant to talk to them again Orthopedics talked with the patient this morning and gave them treatment options Sinus bradycardia noted overnight Vitals/I&O/Wt Last Vital Signs Temp 97.7 F 01/14/23 08:00 Pulse 51 L 01/14/23 08:35 Resp 17 01/14/23 10:42 BP 150/92 01/14/23 08:00 Pulse Ox 98 01/14/23 08:35 O2 Del Method Room Air 01/14/23 08:35 01/13/23 01/14/23 01/14/23 22:59 06:59 14:59 Intake Total 480 / 480 882.5 / 1362.5 240 / 240 Balance 480 / 480 882.5 / 1362.5 240 / 240 Weight last 48 hrs Weight 83.915 kg Physical Exam Narrative: Patient is able to walk Taking shower Awake and alert Back pain slightly better No signs of cauda equina Abdomen soft S1, S2 GCS 15 Data 01/13/23 03:45 01/14/23 04:33 A&P Assessment and plan (1) Lumbar radiculopathy, acute: (2) Herniated nucleus pulposus, L2-3 left: (3) Hypokalemia: (4) Spinal stenosis, lumbar region, with neurogenic claudication: (5) DDD (degenerative disc disease), lumbar: (6) Lumbar radiculopathy: (7) Dehydration: (8) Nausea: (9) Back pain: Plan Sinus bradycardia noted overnight We will obtain EKG and put on telemetry Hemodynamically stable Back pain: Slightly better No events management L1-L2, L5 correlated with the clinical exam No sign of cauda equina Continue opioids and Decadron for now Opioids along bowel regimen Signs of dehydration improving Discontinue IV fluid hydration plan for now Hemodynamically stable Currently doing well on room air Awaiting for the PA from orthopedic services to discuss options when is in the room, is waiting at the bedside Patient is full code Currently on regular diet Attestations Medical Necessity Statement*: After today's meeting will decide about her disposition plan Diagnoses Lumbar radiculopathy, acute M54.16 Herniated nucleus pulposus, L2-3 left M51.26 Hypokalemia E87.6 Spinal stenosis, lumbar region, with neurogenic claudication M48.062 DDD (degenerative disc disease), lumbar M51.36 Lumbar radiculopathy M54.16 Dehydration E86.0 Nausea R11.0 Back pain M54.9
--- NOTE | 2023-01-14 12:23 | ECG_ITS ---
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 Measurements Intervals [place] Rate: 47 P: 52 WV: 135 QRS: 9 QRSD: 104 T: 30 QT: 489 QTc: 433 Interpretive Statements SINUS BRADYCARDIA INTERPRETATION BASED ON A DEFAULT AGE OF 40 YEARS No previous ECG available for comparison Electronically Signed On 01-15-2023 0:30:05 CDT by Massiel Caldwell M.D. [id number]
[2023-01-15] VITALS (23 sets, daily range): BP systolic 130–164; BP diastolic 68–89; PULSE 54–91; RESP 15–20; TEMP 36.2–37.2; O2SAT 93–99
--- NOTE | 2023-01-15 | XR_ITS ---
WS: [id number] XR lumbar spine 2-3V* [id number] REASON FOR EXAM: SURGICAL PROCEDURE FINDINGS: Final localization film demonstrates the surgical appliance overlying the left L2-L3 disc space. XR/XR lumbar spine 2-3V* [id number] IMPRESSION: Intraoperative lumbar localization as above.
[2023-01-15] MEDS: HYDROmorphone 1 mg/mL INJ 1 mL 0.8 MG IVP ×5 (03:33→23:59)
[2023-01-15] MEDS: dexamethasone 4 mg Tablet PO ×2 (08:44→20:00)
[2023-01-15] MEDS: sennosides-docusate Tablet 1 TAB PO (08:44)
[2023-01-15] MEDS: amlodipine 10 mg Tablet PO (08:44)
--- NOTE | 2023-01-15 11:43 | PC.SOCIAL ---
Pg 2 IMM Explained to pt Pg 2 IMM. No questions voiced. Provided pt a copy. Initialed, dated, & timed a copy & placed in chart.
--- NOTE | 2023-01-15 13:06 | PM.PN ---
Subjective Subjective: Patient is going for surgery today Pain better controlled Vitals/I&O/Wt Last Vital Signs Temp 98 F 01/15/23 08:00 Pulse 57 L 01/15/23 08:45 Resp 16 01/15/23 08:45 BP 143/77 01/15/23 08:00 Pulse Ox 99 01/15/23 08:45 O2 Del Method Room Air 01/15/23 08:45 01/14/23 01/15/23 01/15/23 22:59 06:59 14:59 Intake Total 240 / 1560 Balance 240 / 1560 Physical Exam Narrative: Awake and alert GCS 15 Euvolemic Pain well controlled Able to walk Pleasant and cooperative Currently on room air You Data 01/13/23 03:45 01/14/23 04:33 A&P Assessment and plan (1) Lumbar radiculopathy, acute: (2) Spinal stenosis, lumbar region, with neurogenic claudication: (3) Herniated nucleus pulposus, L2-3 left: (4) Hypokalemia: (5) DDD (degenerative disc disease), lumbar: (6) Lumbar radiculopathy: (7) Dehydration: (8) Nausea: Plan Plan for surgical intervention today Postop day 0 GCS 15 Pain well managed Patient able to walk No sign of cauda equina We will let her eat after her surgery Patient is full code Attestations Medical Necessity Statement*: Surgery today Diagnoses Lumbar radiculopathy, acute M54.16 Spinal stenosis, lumbar region, with neurogenic claudication M48.062 Herniated nucleus pulposus, L2-3 left M51.26 Hypokalemia E87.6 DDD (degenerative disc disease), lumbar M51.36 Lumbar radiculopathy M54.16 Dehydration E86.0 Nausea R11.0
--- NOTE | 2023-01-15 14:00 | ANES.PREANE2 ---
Pre-Anesthetic Assessment Height/Weight: Height 1.73 m Weight 83.915 kg Temp Pulse Resp BP Pulse Ox O2 Del Method 98.1 F 54 L 15 136/77 97 Nasal Cannula 01/15/23 12:00 01/15/23 12:00 01/15/23 12:00 01/15/23 12:00 01/15/23 12:00 01/15/23 12:00 Preop Diagnosis: Herniated nucleus pulposus to the left of L2-3, left L3-4 stenosis Operation Date: 01/15/23 14:40 Proposed Procedures p Left L2-L3 Microdiscectomy(Left) - Viktor H Giana, s Lumbar Spine Decompression Left L3-L4(Left) - Viktor H Giana, DO Familial anesthetic complications: None Was Beta Beverly taken within 24 hours: N/A Was Clonidine taken within 24 hours: N/A Last intake: > 8hrs Social Alcohol (2-3 beers a night) and No alcohol Exam alert, oriented x 3, clear to auscultation bilaterally and regular rate & rhythm Airway Mallampati: Class II Dentition: full CV/HEM Hypertension GI Gastroesophageal Reflux Disease Metabolic Hyperlipidemia Anesthetic Plan ASA status: 3 Anesthesia: General Risk of > 500 ml blood loss (7ml/kg in children): No Medications/Allergies Home Medications Medication Instructions Recorded Confirmed Last Taken Type amlodipine 5 mg tablet 5 mg PO DAILY 08/30/21 01/12/23 01/09/23 History atorvastatin 40 mg tablet 40 mg PO DAILY 08/30/21 01/12/23 01/09/23 History cholecalciferol (vitamin D3) 1,250 50,000 unit PO .Montly 08/30/21 01/12/23 12/14/22 History mcg (50,000 unit) capsule ibuprofen 800 mg tablet 800 mg PO TID PRN Mild Pain (Scale 08/30/21 01/12/23 Unknown History Score 1-4) omeprazole 40 mg capsule,delayed 40 mg PO DAILY 08/30/21 01/12/23 01/09/23 History release tizanidine 2 mg tablet 2 mg PO TID PRN Muscle Spasticity 08/30/21 01/12/23 Unknown History Custom Molded Orthotics #1 ea 12/12/21 01/12/23 Unknown Rx escitalopram oxalate 10 mg tablet 10 mg PO DAILY 01/12/23 01/12/2301/09/23 History (Lexapro) Allergies Allergy/AdvReac Type Severity Reaction Status Date / Time No Known Allergies Allergy Verified 01/12/23 06:14 Current Medications Generic Name Dose Route Start Last Admin Trade Name Freq PRN Reason Stop Dose Admin Amlodipine Besylate 10 mg 01/14/23 09:00 01/15/23 08:44 Amlodipine 10 Mg Tablet PO 10 mg DAILY SAIDA Administration Dexamethasone 4 mg 01/12/23 15:00 01/15/23 08:44 Dexamethasone 4 Mg Tablet PO 4 mg TID SAIDA Administration Hydromorphone HCl 0.8 mg 01/13/23 20:00 01/15/23 12:22 Hydromorphone 1 Mg/Ml Inj 1 Ml IVP 0.8 mg Q4H SAIDA Administration Metoprolol Tartrate 25 mg 01/13/23 12:05 01/15/23 08:41 Metoprolol Tartrate 25 Mg Tablet PO Not Given BID@0900,2100 SAIDA Oxycodone/Acetaminophen 1 tab 01/12/23 12:53 01/14/23 10:42 Oxycodone-Apap 10-325 Mg Tablet PO 1 tab Q4H PRN Administration back pain Senna/Docusate Sodium 1 tab 01/13/23 09:00 01/15/23 08:44 Sennosides-Docusate Tablet PO 1 tab DAILY SAIDA Administration Tizanidine HCl 2 mg 01/12/23 12:58 01/14/23 10:42 Tizanidine 4 Mg Tablet PO 2 mg TID PRN Administration Muscle Spasticity PFSH Anesthesia Medical History HTN (hypertension) Hyperlipidemia Lisfranc fracture Surgical History S/P arthroscopic knee surgery (~2013) S/P bladder repair S/P foot surgery, right S/P hysterectomy (~1995) Family History Mother Heart disease Father Heart disease Cancer Brother Cancer Colon CA Social History Smoking and tobacco status: never smoked Quit status (tobacco): has quit using tobacco Year quit tobacco: 1997 2 pack per day Former quit date comment: smoked for 30 years Alcohol intake: current Alcohol intake frequency: 3 or more drinks per day Alcohol type: beer Substance/Drug Use: never Lives independently: Yes Household members: spouse Housing: House Marital status: Number of children: 3 Pets and animals: No Data Anesthesia 01/13/23 03:45 01/14/23 04:33 BMP 01/14/23 04:33 Sodium 135 L Potassium 3.6 Chloride 101 Carbon Dioxide 22 BUN 30 H Creatinine 0.5 Glucose 144 H Calcium 8.6 Cardiac Studies: Echocardiogram 01/12/23
--- NOTE | 2023-01-15 14:02 | W.PM.OPSUD ---
Surgery/Procedure H&P Update DATE OF PROCEDURE: January 15, 2023 DATE H&P PERFORMED: 01/12/23 H&P UPDATE INFORMATION: I have reviewed H&P completed within last 30 days, I have examined patient prior to procedure and No changes to prior documentation PREOP DIAGNOSIS: Herniated nucleus pulposus to the left of L2-3, left L3-4 stenosis PLANNED PROCEDURE: Operation Date: 01/15/23 14:40 Proposed Procedures p Left L2-L3 Microdiscectomy(Left) - Viktor Faria DO s Lumbar Spine Decompression Left L3-L4(Left) - Viktor Faria DO
[2023-01-15] MEDS: scopolamine 1.5 Patch 1 PATCH TRANSDERMA (14:15)
[2023-01-15] MEDS: fentaNYL 50 mcg/mL INJ 2mL IVP (14:16)
[2023-01-15] MEDS: sodium chloride 0.9% 1,000 ML 30 ML IV (14:16)
[2023-01-15] MEDS: ceFAZolin 2,000 MG in sodium chloride 0.9% (plus) 50 ML 100 MG IV ×2 (14:30→22:45)
[2023-01-15] MEDS: lidocaine-epi 1% 20 mL INJ INJECTION (15:00)
--- NOTE | 2023-01-15 16:31 | P.OP_ITS ---
Operative Report Date of procedure: January 15, 2023 Pre-op diagnosis: Preop Diagnosis Herniated nucleus pulposus to the left of L2-3, left L3-4 stenosis Post-op diagnosis: same Procedure done: 1. L2/3 laminectomy with partial facetectomy and disckectomy 2. L3/4 laminectomy with partial factectomy Surgeon: Viktor Faria Refractive Surgeon: Melvin Truong Refractive Surgeon: The salesperson surgical appliances, Melvin Truong, PAC was needed for his expertise under the microscope. He was important and necessary throughout the procedure to complete in a safe and timely manner. He assisted with patient positioning prepping and draping tissue retraction suctioning of the operative field protection of the dural sac and tissue closure Estimated blood loss (mL): 25 Procedure: 1. L2/3 laminectomy with partial facetectomy and disckectomy 2. L3/4 laminectomy with partial factectomy Patient is brought to the operative suite. After undergoing anesthesia they are placed in the prone position. All areas of impingement are well padded. Patient is then prepped and draped in the normal sterile fashion. A skin incision is made over the L2/3 level. This is confirmed under c-arm guidance. A series of dilators are passed and the tubular retractor is docked on the L2 lamina. A bovie is used to clear the soft tissue off the lamina and the L 2/3 facet joint. A high speed patrice is then used to perform the laminectomy and take down the medial aspect of the L 2/3 facet joint. A kerrison rongeure was then used to take down the remaining lamina and smooth the edge of the laminectomy up to the point where the ligamentum flavum attaches. Attention was then brought to the medial aspect of the facet joint. The remaining medial aspect of the superior and inferior aspect of the facet joint were taken down with the kerrison from the pedicle of L2 to L 3. The facet joint had significant hypertrophy. Attention was then brought to the Ligamentum Flavum. The ligament was taken down from the lamina of L2 to L3 and out medially to the remaining facet joint. The ligament was thick. The dura was then exposed. The dura was in good repair. The L3 nerve was retracted disc was identified. Small fragments of disc were removed and then the space irrigated and then more large fragments came out from more superiorly. All these fragments were removed. The L2 nerve was then traced with a curette out the L2/3 foramen and found to be adequately decompressed. The L3 nerve was traced with a curette around the L3 pedicle. The lateral recess was opened with a kerrison helping to further decompress the L3 nerve. Wound is then irrigated copiously with saline and surgiflo is used to stop any bleeding. The tubular retractor is removed and the A skin incision is made over the L3/4 level. This is confirmed under c-arm guidance. A series of dilators are passed and the tubular retractor is docked on the L3 lamina. A bovie is used to clear the soft tissue off the lamina and the L 3/4 facet joint. A high speed patrice is then used to perform the laminectomy and take down the medial aspect of the L 3/4 facet joint. A kerrison rongeure was then used to take down the remaining lamina and smooth the edge of the laminectomy up to the point where the ligamentum flavum attaches. Attention was then brought to the medial aspect of the facet joint. The remaining medial aspect of the superior and inferior aspect of the facet joint w ere taken down with the kerrison from the pedicle of L3 to L 4. The facet joint had significant hypertrophy. Attention was then brought to the Ligamentum Flavum. The ligament was taken down from the lamina of L3 to L4 and out medially to the remaining facet joint. The ligament was thick. The dura was then exposed. The dura was in good repair. The L3 nerve was then traced with a curette out the L3/4 foramen and found to be adequately decompressed. The L4 nerve was traced with a curette around the L4 pedicle. The lateral recess was opened with a kerrison helping to further decompress the L4 nerve. Wound is then irrigated copiously with saline and surgiflo is used to stop any bleeding. The tubular retractor is removed and the wound is closed with vicryl and monocryl suture. Glue is then used to protect the wound. A sterile dressing is then placed. Patient was then placed in the supine position and transferred to the PACU in stable condition.
[2023-01-15] MEDS: docusate sodium 100 mg Capsule PO (17:22)
[2023-01-15] MEDS: HYDROcodone-acetaminophen 5-325 mg Tablet PO (17:22)
[2023-01-16] VITALS (9 sets, daily range): BP systolic 131–133; BP diastolic 74–78; PULSE 48–65; RESP 14–20; TEMP 36.4–36.7; O2SAT 94–98
[2023-01-16] MEDS: oxyCODONE-APAP 10-325 mg Tablet 1 TAB PO ×2 (02:37→09:02)
[2023-01-16] MEDS: HYDROmorphone 1 mg/mL INJ 1 mL 0.8 MG IVP (04:31)
[2023-01-16] MEDS: ceFAZolin 2,000 MG in sodium chloride 0.9% (plus) 50 ML 100 MG IV (05:36)
--- NOTE | 2023-01-16 06:58 | PM.PN ---
Subjective Subjective: POD 1 Patient resting comfortably. States her leg pain is much improved. Mild back pain. Denies any shortness of breath, chest pain, headaches. Vitals/I&O/Wt Last Vital Signs Temp 98.1 F 01/16/23 04:22 Pulse 48 L 01/16/23 05:45 Resp 20 H 01/16/23 04:31 BP 131/74 01/16/23 04:22 Pulse Ox 98 01/16/23 04:22 O2 Del Method Room Air 01/15/23 20:00 O2 Flow Rate 6 01/15/23 16:33 01/15/23 01/15/23 01/16/23 14:59 22:59 06:59 Intake Total 50 / 50 1320 / 1370 220 / 1590 Output Total 20 / 20 Balance 50 / 50 1300 / 1350 220 / 1570 Physical Exam Narrative: Patient presents alert and oriented x3 with a good general appearance normal mood and affect. Normal coordination normal stability. Mild tenderness around the incisional site with the incision appear to be clean and dry. No signs of erythema or drainage. No signs of infection. Patient denies any fevers or chills. 5/5 motor strength both lower extremities with negative straight leg raise bilaterally. Calves are supple no medial thigh tenderness. Pulses are 2+ at the dorsalis pedis and posterior tibial region. Good capillary refill throughout normal sensation light touch both lower extremities. Data 01/13/23 03:45 01/14/23 04:33 A&P Assessment and plan (1) Status post lumbar laminectomy: Physical therapy to work on mobilization and nerve glide exercises. Cautious with any bending lifting or twisting activities. See her back in the office in 1 week's time. Okay from orthopedic standpoint to discharge home today with hydrocodone 01/15/2025's take 1-2 every 4-6 hours as needed for pain. Home with incentive spirometer for pulmonary toilet. Encouraged her to call if she is having problems. Attestations Medical Necessity Statement*: Defer to medical team Coding Level of Care Code Acute Code for Chg Fwd Diagnoses Status post lumbar laminectomy Z98.890
[2023-01-16] MEDS: docusate sodium 100 mg Capsule PO (09:01)
[2023-01-16] MEDS: dexamethasone 4 mg Tablet PO (09:01)
[2023-01-16] MEDS: sennosides-docusate Tablet 1 TAB PO (09:01)
[2023-01-16] MEDS: amlodipine 10 mg Tablet PO (09:01)
--- NOTE | 2023-01-16 11:16 | PM.MISC ---
Miscellaneous Note Note: I have signed my discharge summary which will be considered note from today
[2023-01-16] MEDS: HYDROcodone-acetaminophen 5-325 mg Tablet PO (12:12)
== END 2023-01-16 16:29 | disposition home or self-care (01) | DRG 520 ==
LOC: ER 07:17 → MEDSURG 12:16
PROVIDERS: Orthopaedic Surgery; Admitting Provider Internal Medicine; Emergency Provider Family Medicine; PCP Electrodiagnostic Medicine; Visit Provider Internal Medicine
PROC: 0SB20ZZ Excision of Lumbar Vertebral Disc, Open Approach (ICD-10-PCS; principal; 2023-01-15 14:30)
PROC: 0SB20ZZ Excision of Lumbar Vertebral Disc, Open Approach (ICD-10-PCS; CPT 63005; 2023-01-15 14:30)
DX: M51.16 Intervertebral disc disorders with radiculopathy, lumbar region (principal); G89.29 Other chronic pain; I10 Essential (primary) hypertension; E78.5 Hyperlipidemia, unspecified; Z87.891 Personal history of nicotine dependence; E86.0 Dehydration; E87.6 Hypokalemia
CPT/HCPCS: 36415; 51701; 72100; 72131; 72148; 74177; 76000; 80048; 80053; 81001; 83690; 83735; 85025; 93005; 93306; 96374; 96375; 96376; 97161; 99285; J0690; J1100; J1170; J1885; J2270; J2360; J2405; J2704; J3010; J3490; J7030; J8540; Q9967

== ENCOUNTER → 2023-01-28 13:50 | Outpatient (BNVA) | payer MEDICARE, SELFPAY | PROVIDERS: PCP Electrodiagnostic Medicine; Visit Provider Orthopaedic Surgery | DX: Z47.89 Encounter for other orthopedic aftercare (principal) | CPT/HCPCS: 99024 ==

== ENCOUNTER → 2023-02-13 11:03 | Outpatient (BNVA) | payer MEDICARE, SELFPAY | PROVIDERS: PCP Electrodiagnostic Medicine; Visit Provider Physician Assistant | DX: Z48.89 Encounter for other specified surgical aftercare (principal) | CPT/HCPCS: 72110; 99024 ==

== ENCOUNTER 2023-02-19 07:03 | Outpatient (CLI) | payer MEDICARE, SELFPAY ==
--- NOTE | 2023-02-19 07:15 | MR_ITS ---
WS: [id number] MRI LUMBAR SPINE NONCONTRAST HISTORY: pain COMPARISON: 01/13/2023 TECHNIQUE: Sagittal and axial multisequence imaging is submitted. Degenerative disc and osteophyte disease throughout the cervical spine with disc space narrowing. Sim ilar findings throughout the thoracic spine. Mild curvature of the lumbar spine. Mild marrow edema in L1 and L2. Disc spaces are narrowed and desiccated throughout. Conus terminates normally at L1-2 disc level. Redundancy and displacement of the nerve roots at the L 2-3 level. There is mild edema suggesting nerve root inflammation. L1-L2: Facet joint arthritis. Annular disc bulging asymmetric to the LEFT. Mild encroachment upon the ventral thecal sac with moderate bilateral foraminal stenosis. L2-L3: New moderate sized LEFT hemilaminectomy defect since the prior examination. The hemilaminectom y defect is filled with postoperative fluid measuring 1.4 x 1.1 cm. There is a very large extruded di sc extending into the LEFT subarticular recess and significantly displacing the thecal sac and the ne rve roots to the RIGHT. There was a disc extrusion on the prior study also which extended cephalad. T his disc is different orientation and increased in size. Disc measures 1.3 x 1.2 cm. Resulting in sig nificant central and subarticular recess stenosis and LEFT foraminal stenosis. Mild stenosis on the R IGHT. L3-L4: Annular disc bulging with facet arthritis. RIGHT hemilaminectomy defect. Moderate central, nithya ateral subarticular recess and RIGHT foraminal stenosis. Mild LEFT foraminal stenosis. Most significa nt impingement upon the traversing L4 nerve roots. L4-L5: Mild disc bulging with impingement traversing RIGHT greater than LEFT L5 nerve roots. Facet ar thritis. Moderate RIGHT foraminal stenosis. Mild impingement upon the traversing RIGHT L5 nerve root. L5-S1: Annular disc bulging with minimal impingement upon the traversing LEFT S1 nerve root. Moderate LEFT and mild RIGHT foraminal stenosis. Vertebral soft tissues are normal. MR/MR lumbar spine wo con* [id number] IMPRESSION: 1. Since the prior examination LEFT hemilaminectomy defects are noted at L2-3 and L3-4. Postsurgical changes are noted in the paraspinal soft tissues on the LEFT at L2-3 and L3-4. 2. L2-3: Large extruded disc extends into the LEFT subarticular recess with si gnificant displacement of the RIGHT of the thecal sac and nerve roots. Disc ext rusion was present on the prior study but it extends cephalad from the disc lev el. This disc protrusion has either migrated or new and extends into the LEFT s ubarticular recess. There is significant central, subarticular recess and LEFT foraminal stenosis. 3. Moderate central, bilateral subarticular recess and RIGHT foraminal stenosi s at L3-4. Encroachment upon the traversing L4 nerve roots. 4. Moderate RIGHT foraminal stenosis at L4-5 with disc encroachment upon the t raversing L5 nerve roots. 5. Moderate LEFT and mild RIGHT foraminal stenosis at L5-S1 with mild unchange d impingement upon the traversing S1 nerve root. 6. Moderate bilateral foraminal stenosis at L1-2.
== END 2023-02-19 07:04 | disposition home or self-care (01) ==
LOC: RAD 07:07
PROVIDERS: PCP Electrodiagnostic Medicine; Visit Provider Physician Assistant
DX: M47.816 Spondylosis without myelopathy or radiculopathy, lumbar region (principal); M48.07 Spinal stenosis, lumbosacral region; M50.30 Other cervical disc degeneration, unspecified cervical region; Z48.89 Encounter for other specified surgical aftercare; M25.78 Osteophyte, vertebrae
CPT/HCPCS: 72148

== ENCOUNTER → 2023-02-25 10:35 | Outpatient (BNVA) | payer MEDICARE, SELFPAY | PROVIDERS: PCP Electrodiagnostic Medicine; Visit Provider Orthopaedic Surgery | DX: Z48.89 Encounter for other specified surgical aftercare (principal); Z01.818 Encounter for other preprocedural examination | CPT/HCPCS: 36415; 80053; 85025; 99024 ==

== ENCOUNTER 2023-02-28 08:36 | Day surgery (SDC) | payer MEDICARE, SELFPAY ==
[2023-02-27 08:02] VITALS: BMI 27.3
--- NOTE | 2023-02-27 14:44 | P.ANESASSM_ITS ---
Pre-Anesthetic Assessment Height/Weight: Height 1.73 m Weight 81.647 kg Operation Date: 02/28/23 11:00 Proposed Procedures p Lumbar DiscectomyL2/3:18108,M51.26(Not Applicable) - Viktor Faria DO Familial anesthetic complications: none Was Beta Beverly taken within 24 hours: N/A Was Clonidine taken within 24 hours: N/A Social No alcohol and No tobacco Exam alert, oriented x 3, clear to auscultation bilaterally and regular rate & rhythm Airway Submandibular: within normal limits Cervical ROM: within normal limits Mallampati: Class III Dentition: full CV/HEM Hypertension Metabolic Hyperlipidemia [facility] [place] Lower Back Pain and Osteoarthritis/DJD Anesthetic Plan ASA status: 3 Anesthesia: General Medications/Allergies Home Medications Medication Instructions Recorded Confirmed Last Taken Type amlodipine 5 mg tablet 5 mg PO DAILY 08/30/21 02/27/23 01/09/23 History atorvastatin 40 mg tablet 40 mg PO DAILY 08/30/21 02/27/23 01/09/23 History cholecalciferol (vitamin D3) 1,250 50,000 unit PO .Montly 08/30/21 02/27/23 12/14/22 History mcg (50,000 unit) capsule ibuprofen 800 mg tablet 800 mg PO TID PRN Mild Pain (Scale 08/30/21 02/27/23 Unknown History Score 1-4) Custom Molded Orthotics #1 ea 12/12/21 02/25/23 Unknown Rx escitalopram oxalate 10 mg tablet 10 mg PO DAILY 01/12/23 02/27/23 01/09/23 History (Lexapro) sennosides 8.6 mg-docusate sodium 1 tab PO DAILY #30 tabs 01/16/23 02/27/23 Unknown Rx 50 mg tablet (Stool Softener-Laxative) hydrocodone 5 mg-acetaminophen 325 1 tab PO Q4H PRN Moderate To 02/21/23 02/27/23 Unknown Rx mg tablet Severe Pain 5 days #30 tabs Allergies Allergy/AdvReac Type Severity Reaction Status Date / Time No Known Allergies Allergy Verified 02/27/23 09:31 [facility] Anesthesia Medical History Back pain DDD (degenerative disc disease), lumbar Dehydration Herniated nucleus pulposus, L2-3 left HTN (hypertension) Hyperlipidemia Hypokalemia Lisfranc fracture Lumbar radiculopathy Lumbar radiculopathy, acute Lumbar radiculopathy, chronic Nausea Spinal stenosis, lumbar region, with neurogenic claudication Surgical History S/P arthroscopic knee surgery (~2013) S/P bladder repair S/P foot surgery, right S/P hysterectomy (~1995) Status post lumbar laminectomy Family History Mother Heart disease Father Heart disease Cancer Brother Cancer Colon CA Social History Smoking and tobacco status: never smoked Quit status (tobacco): has quit using tobacco Year quit tobacco: 1997 2 pack per day Former quit date comment: smoked for 30 years Alcohol intake: current Alcohol intake frequency: 3 or more drinks per day Alcohol type: beer Substance/Drug Use: never Lives independently: Yes Household members: spouse Housing: House Marital status: Number of children: 3 Pets and animals: No Data Anesthesia Cardiac Studies: Echocardiogram 01/12/23
[2023-02-28] VITALS (14 sets, daily range): BP systolic 133–182; BP diastolic 77–103; PULSE 58–86; RESP 12–22; TEMP 36.1–36.6; O2SAT 90–96
--- NOTE | 2023-02-28 | XR_ITS ---
WS: [id number] XR lumbar spine 1V [id number] REASON FOR EXAM: L2-L3 disectomy FINDINGS: Surgical instrument overlying the left L2-L3 disc space. XR/XR lumbar spine 1V [id number] IMPRESSION: Lumbar localization as above.
--- NOTE | 2023-02-28 08:46 | W.PM.OPSUD ---
Surgery/Procedure H&P Update DATE OF PROCEDURE: February 28, 2023 DATE H&P PERFORMED: 02/25/23 PREOP DIAGNOSIS: Lumbar radiculopathy,HNP L2-3 PLANNED PROCEDURE: Operation Date: 02/28/23 11:00 Proposed Procedures p Lumbar DiscectomyL2/3:27770,M51.26(Not Applicable) - Viktor Faria DO
--- NOTE | 2023-02-28 09:02 | P.ANESUD_ITS ---
Pre-Anesthetic Update Pre-Anesthetic Assessment: Date of Surgery/Procedure: 02/28/23 Preop Amber gnosis: Lumbar radiculopathy,HNP L2-3 Proposed Procedure: Operation Date: 02/28/23 11:00 Proposed Procedures p Lumbar DiscectomyL2/3:59778,M51.26(Not Applicable) - Viktor Faria, DO Any changes to Pre-Anesthetic Assessment?: No Last Intake: Intake Last Liquid Date 02/27/23 Last Liquid Time 22:00 Last Solid Date 02/27/23 Last Solid Time 22:00 Vitals: Temperature 98 F 02/28/23 08:45 Temperature Source Temporal Artery S can 02/28/23 08:45 Pulse Rate 69 02/28/23 08:45 Respiratory Rate 18 02/28/23 08:45 Blood Pressure 161/90 02/28/23 08:45 Blood Pressure Zoraida n 113 02/28/23 08:45 Pulse Oximetry 96 02/28/23 08:45 Oxygen Delivery Me thod Room Air 02/28/23 08:45 Exam: Pre-Anes Outpt Exam: alert, oriented x 3, clear to auscultation bilaterally and regular rate & rhythm Cardiac Studies: Echocardiogram 01/12/23
[2023-02-28] MEDS: sodium chloride 0.9% 1,000 ML 30 ML IV (09:08)
[2023-02-28] MEDS: scopolamine 1.5 Patch 1 PATCH TRANSDERMA (09:09)
[2023-02-28] MEDS: ceFAZolin 2,000 MG in sodium chloride 0.9% (plus) 50 ML 100 MG IV (10:12)
[2023-02-28] MEDS: lidocaine-epi 1% 20 mL INJ INJECTION (10:50)
--- NOTE | 2023-02-28 11:39 | P.OP_ITS ---
Operative Report Date of procedure: February 28, 2023 Pre-op diagnosis: Preop Diagnosis Lumbar radiculopathy,HNP L2-3 recurrent disk herniation Post-op diagnosis: same Procedure done: 1. revision L2/3 laminectomy with partial facetectomy and diskecktomy Surgeon: Viktor Faria Machine Stone Polisher Apprentice: none Estimated blood loss (mL): 10 Procedure: 1. revision L2/3 laminectomy with partial facetectomy and diskecktomy Patient brought to the operative suite after undergoing anesthesia placed in the prone position. Eyes appear well-padded presumably normal sterile fashion. Skin incision made using previous skin incision. Dilators were passed to retractors placed. Once to retractors placed microscope was brought in. Dissection was made down. The previous laminectomy site was identified. Once the bone was identified then scar tissue and disc were identified as pushing the nerve roots over this was dissected out with a curved curette. Once this was dissected out Kerrison rongeur was used to remove part of the lamina as well as part of the medial aspect of facet joint. The curved curette was used to undermine the disc from the L3 nerve. The distal was lateral was removed. Distally was distal to the disc base was identified again undermined with a curved curette and removed with micropituitary. This space was identified irrigated out again and loose fragments were removed. This was done several times all loose disc fragments were removed. The L3 nerve was felt to be completely decompressed as was the L2 nerve. Wounds were irrigated and wound was closed with 2-0 Vicryl and Monocryl suture. Sterile dressings were applied patient was transferred to the PACU in stable condition.
[2023-02-28] MEDS: fentaNYL 50 mcg/mL INJ 2mL 100 MCG IVP (11:43)
[2023-02-28] MEDS: HYDROmorphone 1 mg/mL INJ 1 mL 0.5 MG IVP (11:57)
--- NOTE | 2023-02-28 13:05 | ANE.PACU2 ---
Inpatient post-anesthesia follow up: Vital signs: Temperature 97.2 F Pulse Rate 68 Respiratory Rate 16 Blood Pressure 141/91 Pulse Oximetry 96 Oxygen Delivery Me thod Room Air Oxygen Flow Rate Fraction of Inspir ed Oxygen Hydration adequate: Yes Nausea and vomiting: No Pain level: 4 Mental status: Baseline
== END 2023-02-28 12:50 | disposition home or self-care (01) ==
PROVIDERS: PCP Electrodiagnostic Medicine; Visit Provider Orthopaedic Surgery
PROC: (CPT 63042; principal; 2023-02-28 11:00)
DX: M51.16 Intervertebral disc disorders with radiculopathy, lumbar region (principal); M47.26 Other spondylosis with radiculopathy, lumbar region; I10 Essential (primary) hypertension; E78.5 Hyperlipidemia, unspecified; Z87.891 Personal history of nicotine dependence
CPT/HCPCS: 63042; 72020; 76000; J0690; J1170; J2704; J3010; J7030

== ENCOUNTER → 2023-03-13 13:59 | Outpatient (BNVA) | payer MEDICARE, SELFPAY | PROVIDERS: PCP Electrodiagnostic Medicine; Visit Provider Physician Assistant | DX: Z98.890 Other specified postprocedural states (principal) | CPT/HCPCS: 99214 ==

== ENCOUNTER → 2023-03-27 12:45 | Outpatient (BNVA) | payer MEDICARE, SELFPAY | PROVIDERS: PCP Electrodiagnostic Medicine; Visit Provider Podiatrist Foot & Ankle Surgery | DX: M96.0 Pseudarthrosis after fusion or arthrodesis (principal); S93.322A Subluxation of tarsometatarsal joint of left foot, initial encounter; X58.XXXA Exposure to other specified factors, initial encounter | CPT/HCPCS: 73630; 99213 ==

== ENCOUNTER → 2023-04-22 08:52 | Outpatient (BNVA) | payer MEDICARE, SELFPAY | PROVIDERS: PCP Electrodiagnostic Medicine; Visit Provider Physician Assistant | DX: Z47.89 Encounter for other orthopedic aftercare | CPT/HCPCS: 99024 ==

== ENCOUNTER → 2023-04-28 09:59 | Outpatient (BNVA) | payer MEDICARE, SELFPAY | PROVIDERS: PCP Electrodiagnostic Medicine; Visit Provider Podiatrist Foot & Ankle Surgery | DX: M96.0 Pseudarthrosis after fusion or arthrodesis; S93.322A Subluxation of tarsometatarsal joint of left foot, initial encounter; X58.XXXA Exposure to other specified factors, initial encounter | CPT/HCPCS: 99214 ==

== ENCOUNTER → 2023-05-23 06:38 | Day surgery (SDC) | payer MEDICARE, SELFPAY ==
[2023-05-22 10:04] VITALS: BMI 28.1
[2023-05-23] VITALS (8 sets, daily range): BP systolic 129–155; BP diastolic 74–100; PULSE 79–92; RESP 16–17; TEMP 36.1–36.7; O2SAT 93–97
--- NOTE | 2023-05-23 | XR_ITS ---
WS: [id number] Left foot, C-arm fluoroscopy views, 05/23/2023 Clinical Data: painful hardware left foot. Comparison: Left foot, 03/27/2023 Findings: Dr. Nam adjusted the fusion hardware of the left first and second metatarsals and adjoining [place] forms. Impression: Hardware removal and replacement of Lisfranc fracture dislocation repair.
[2023-05-23] MEDS: sodium chloride 0.9% 1,000 ML 30 ML IV (07:24)
--- NOTE | 2023-05-23 07:49 | P.ANESASSM_ITS ---
Pre-Anesthetic Assessment Height/Weight: Height 1.73 m Weight 83.915 kg Temp Pulse Resp BP Pulse Ox O2 Del Method 98.1 F 79 17 155/100 9 L Room Air 05/23/23 07:05 05/23/23 07:05 05/23/23 07:05 05/23/23 07:05 05/23/23 07:05 05/23/23 07:12 Preop Diagnosis: Painful hardware left foot. Nonunion left foot. Operation Date: 05/23/23 08:15 Proposed Procedures p :?Deep hardware removal right foot,?Resection of nonunion and right midfoot fusion and Bone autograft right calcaneus, 05921, 14852,19223,M79.673,S93.624 A,M96.0(Right) - Santiago Nam DPM s Resection of nonunion and right midfoot fusion and Bone autograft right calcaneus(Right) - Santiago Nam DPM Familial anesthetic complications: None Was Beta Beverly taken within 24 hours: N/A Was Clonidine taken within 24 hours: N/A Last intake: Intake Last Liquid Date 05/22/23 Last Liquid Time 20:00 Last Solid Date 05/22/23 Last Solid Time 18:30 Social No alcohol and No tobacco Exam alert, oriented x 3, clear to auscultation bilaterally and regular rate & rhythm Airway Mallampati: Class I Dentition: full CV/HEM Hypertension Anesthetic Plan ASA status: 2 Anesthesia: General and Regional (specify below) Risk of > 500 ml blood loss (7ml/kg in children): No Medications/Allergies Home Medications Medication Instructions Recorded Confirmed Last Taken Type amlodipine 5 mg tablet 5 mg PO DAILY 08/30/21 05/22/23 05/23/23 History ibuprofen 800 mg tablet 800 mg PO TID PRN Mild Pain (Scale 08/30/21 05/22/23 05/22/23 History Score 1-4) Custom Molded Orthotics #1 ea 12/12/21 04/28/23 Unknown Rx escitalopram oxalate 10 mg tablet 10 mg PO DAILY 01/12/23 05/22/23 05/22/23 History (Lexapro) sennosides 8.6 mg-docusate sodium 1 tab PO DAILY #30 tabs 01/16/23 05/22/23 05/22/23 Rx 50 mg tablet (Stool Softener-Laxative) tramadol 50 mg tablet 50 mg PO Q6H PRN pain #30 tabs 04/22/23 05/22/23 05/22/23 Rx Allergies Allergy/AdvReac Type Severity Reaction Status Date / Time No Known Allergies Allergy Verified 05/22/23 10:03 Current Medications Generic Name Dose Route Start Last Admin Trade Name Freq PRN Reason Stop Dose Admin Sodium Chloride 1,000 mls @ 30 mls/hr 05/23/23 07:00 05/23/23 07:24 Sodium Chloride 0.9% IV 05/24/23 06:59 30 mls/hr .Q24H SAIDA Administration PFSH Anesthesia Medical History Back pain DDD (degenerative disc disease), lumbar Dehydration Herniated nucleus pulposus, L2-3 left HTN (hypertension) Hyperlipidemia Hypokalemia Lisfranc fracture Lumbar radiculopathy Lumbar radiculopathy, acute Lumbar radiculopathy, chronic Nausea Spinal stenosis, lumbar region, with neurogenic claudication Surgical History S/P arthroscopic knee surgery (~2013) S/P bladder repair S/P foot surgery, right S/P hysterectomy (~1995) Status post lumbar laminectomy Family History Mother Heart disease Father Heart disease Cancer Brother Cancer Colon CA Social History Smoking and tobacco status: never smoked Quit status (tobacco): has quit using tobacco Year quit tobacco: 1997 2 pack per day Former quit date comment: smoked for 30 years Alcohol intake: current Alcohol intake frequency: 3 or more drinks per day Alcohol type: beer Substance/Drug Use: never Lives independently: Yes Household members: spouse Housing: House Marital status: Number of children: 3 Pets and animals: No Data Anesthesia Cardiac Studies: Echocardiogram 01/12/23
--- NOTE | 2023-05-23 07:50 | ANES.PROC ---
Anesthesia Procedures Procedure/Date: 05/23/23 Nerve Block ^: Nerve Block 1: Main Anesthesia: general anesthesia Time Out Performed: Yes Consent: requested by attending/covering physician, from patient, from other, risks and benefits reviewed and patient agrees to proceed Nerve block location: popliteal (L) Anesthesia monitors applied: pulse oximetry, EKG, BP cuff and oxygen Nerve block position: supine Anesthetic Used: ropivicaine 0.5% (30 ml) and with decadron (4 mg) Ultrasound used to: recognize landmarks Nerve Stimulator Used?: No Interscalene/Femoral BLK: 4 stimuplex 21 g needle used for position and inplane approach, visualize local anesthetic spread and no vascular puncture identified Injection: neg aspiration of heme Patient Tolerated Procedure: well and no complications Complications: none
--- NOTE | 2023-05-23 08:42 | P.HPUD_ITS ---
Surgery/Procedure H&P Update DATE OF PROCEDURE: May 23, 2023 DATE H&P PERFORMED: 04/28/23 H&P UPDATE INFORMATION: I have reviewed H&P completed within last 30 days, I have examined patient prior to procedure, No changes to prior documentation and H&P is in [facility] EMR on date indicated PREOP DIAGNOSIS: Painful hardware left foot. Nonunion left foot. PLANNED PROCEDURE: Operation Date: 05/23/23 08:15 Proposed Procedures p :?Deep hardware removal right foot,?Resection of nonunion and right midfoot fusion and Bone autograft right calcaneus, 60188, 52684,49911,M79.673,S93.6 24A,M96.0(Right) - Santiago Nam DPM s Resection of nonunion and right midfoot fusion and Bone autograft right calcaneus(Right) - Santiago Nam DPM
[2023-05-23] MEDS: ceFAZolin 2,000 MG in sodium chloride 0.9% (plus) 50 ML 100 MG IV (08:48)
--- NOTE | 2023-05-23 11:23 | P.BOP_ITS ---
Date of Procedure: 05/23/23 Surgeon: Santiago Nam DPM Pattern Perforating Machine Operator(s): Rock Schmidt Procedure(s) performed: Deep hardware removal left foot. Left first and second tarsometatarsal joint arthrodesis. Findings of the procedure(s): Nonunion left foot, painful hardware left foot. Failed hardware left foot. Estimated blood loss: 5 Specimen(s) removed: None Post-operative diagnosis: Nonunion and painful hardware left foot.
--- NOTE | 2023-05-23 11:24 | P.OP_ITS ---
Operative Report Date of procedure: May 23, 2023 Pre-op diagnosis: Painful hardware left foot first tarsometatarsal joint arthrodesis site. Painful hardware left foot second tarsometatarsal arthrodesis site. Nonunion left first and second tarsometatarsal joint fusion site left foot. Post-op diagnosis: Same Post-op findings: Nonunion left first and second tarsometatarsal joint fusion site. Failed hardware at left second tarsometatarsal arthrodesis site. Procedure done: Deep hardware removal left foot first tarsometatarsal joint arthrodesis site. CPT code 39131 Deep hardware removal left foot second tarsometatarsal joint arthrodesis site. CPT code 08667 Left first and second tarsometatarsal arthrodesis. CPT code 07953 Implants: [place] Lapidus plate with plantar arm and 3.5 mm locking screws and nonlocking screw [place] 4 mm headed cannulated screw short thread [place] clover plate with 3.5 millimeter screws locking and nonlocking [place] V92 1 cc 3-0 Vicryl, 4-0 Vicryl, 4-0 nylon Surgeon: Santiago Nam DPM [employer] Consultant: Rock Schmidt Estimated blood loss: 5 118 IV fluids: 0 Urine output: 0 Complications: None Brief History: Patient has a symptomatic nonunion at the left first and second tarsometatarsal joint attempted fusion sites.? Lack of osseous healing appreciated, there is no failure of hardware, no lucency of hardware.? Unfortunately she continues have pain even with supportive shoes and orthotics as well as anti-inflammatories and activity modifications.? Level of pain affects her overall quality of life and affects with everyday living.? She is accompanied by her in preparation for surgical consultation.? She is not on board with the bone stimulator thinks that it would delay the inevitable where she thinks that a revisional attempt for achieving osseous union is warranted.? Would entail hardware removal, autograft and graft spanning locking plates at the first and second tarsometatarsal joints.? I reviewed at length with the patient, the risks, potential complications, benefits, alternatives, expectations, and typical outcomes associated with the surgery. The risks and potential complications were explained in detail, including but not limited to infection, wound dehiscence or soft tissue complications, bleeding and hematoma, chronic edema, neuritis or ner ve damage producing numbness or chronic pain, CRPS, failure to relieve pain or worsening pain, thick / painful / unsightly scar, limited motion / stiffness, malposition, delayed union, malunion, or nonunion, fracture, reaction to implants, anesthetic complications, venous thromboembolism, and deformity recurrence.? I discussed the notion of no regrets with the patient as it pertains to complications and outcomes. The patient seemed to understand the nature of the proposed care and required convalescence. They asked appropriate questions, answered to their satisfaction. They are aware no guarantees can be made as to a satisfactory outcome and they understand there may be other possible unforeseen complications or outcomes not listed here that will be treated accordingly if they arise. There were no written or implied guarantees given to the patient. They gave informed consent to proceed. Procedure: Under mild sedation the patient was brought to the operating room and placed onto the operating table in supine position. A timeout was performed. Anesthesia was then administered by the anesthesia service. Local anesthesia was injected by myself consisting of 20 cc of 0.5% Marcaine plain in a proximal male block fashion to the left foot and proximal left second ray block followed by additional 10 cc of Exparel infiltrated subcutaneously proximal to the planned incision in a grid like fashion to the left foot. Of note patient received a left popliteal block per anesthesia preoperatively. A well-padded pneumatic tourniquet was applied to the left ankle. Left lower extremity was scrubbed, prepped and draped utilizing normal aseptic technique. Left foot was exanguinated with an Esmarch bandage and tourniquet inflated to 250 mmHg. Attention was directed to the dorsal medial aspect of the left forefoot where previous incision was identified. Directly over the previous incision at the medial aspect of the left first metatarsal base and medial cuneiform just medial to the extensor hallucis longus tendon a linear longitudinal incision made through skin with #15 blade with dissection carried down through subcutaneous t issue to the layer of hardware utilizing sharp and blunt technique. Care was taken to retract and preserve neurovascular and tendinous structures. All bleeders were ligated and cauterized as necessary. Hardware was removed at the first tarsometatarsal arthrodesis site in total without fragmentation or failure this was passed from the operative field. Attention was then directed to the dorsal aspect of the left forefoot at the second metatarsal and intermediate cuneiform arthrodesis site where directly over the previous incision a #15 blade was utilized to incise skin in a linear longitudinal fashion with dissection carried down through subcutaneous tissue to the layer of hardware of the second ray left foot utilizing sharp and blunt technique. Care was taken to retract and preserve neurovascular and tendinous structures. All bleeders were ligated and cauterized as necessary. The hardware of the second tarsal metatarsal arthrodesis site was removed and passed from operative field. Both incisions were then irrigated with copious amounts of Staticin solution. Nonunion of the first and second tarsometatarsal arthrodesis sites was appreciated intraoperatively. Resection of poor quality bone arthrodesis site that presented with nonunion was sharply resected utilizing a joint resurfacing tool down to healthy bone both at the first and second tarsometatarsal joint. Aggressive preparation for arthrodesis was then performed utilizing a fenestrating drill bit at the base of the first and second metatarsals and distal surface of the medial and intermediate cuneiforms followed by fish scaling down to bleeding bone with mallet and osteotome. Arthrodesis sites were packed with V92 and held under compression with fixation utilizing [place] Lapidus plate with plantar arm at the first tarsometatarsal joint and a 4 mm homerun screw and a locking plate with locking and nonlocking screws at the second tarsometatarsal arthrodesis site with excellent bony apposition and compression noted at the first and second tarsometatarsal arthrodesis sites. Anatomic alignment achieved and confirmed with intraoperative fluoroscopy. Fixation from the medial cuneiform extended into the intermediate cuneiform for additional stability. AP, oblique and lateral views confirmed that hardware did not violate the naviculocuneiform joint. The incisions were irrigated with copious amounts of sterile saline solution followed by closure of both incisions in a layered fashion utilizing 3-0 Vicryl at the deep fascia and periosteum, 4-0 Vicryl subcutaneous tissue and 4-0 nylon with skin. The incisions were then dressed with Adaptic, sterile 4 x 4's, Kerlix and Dain wrap followed by application of a cam boot to the left lower extremity. Tourniquet was then deflated and a prompt hyperemic response was noted to the distal digits of the left foot. Patient tolerated the procedure and anesthesia well and was transferred to the PACU with vital signs stable and vascular status intact. Following a period of postoperative monitoring she will be discharged home is to be strict nonweightbearing at this time and elevate her left foot while resting. Was given at home care instructions as well as scheduled follow-up.
--- NOTE | 2023-05-23 12:11 | ANE.PACU2 ---
Inpatient post-anesthesia follow up: Airway intact: Yes Vital signs: Temperature 98.1 F Pulse Rate 88 Respiratory Rate 16 Blood Pressure 147/86 Pulse Oximetry 93 Oxygen Delivery Me thod Room Air Oxygen Flow Rate Fraction of Inspir ed Oxygen Hydration adequate: Yes Nausea and vomiting: No Pain level: 1 Mental status: Baseline
== END | disposition home or self-care (01) ==
PROVIDERS: PCP Electrodiagnostic Medicine; Visit Provider Podiatrist Foot & Ankle Surgery
PROC: (CPT 20680; principal; 2023-05-23 08:15)
PROC: (CPT 28740; 2023-05-23 08:15)
DX: T84.84XA Pain due to internal orthopedic prosthetic devices, implants and grafts, initial encounter (principal); Y99.9 Unspecified external cause status; S92.315K Nondisplaced fracture of first metatarsal bone, left foot, subsequent encounter for fracture with nonunion; S92.325K Nondisplaced fracture of second metatarsal bone, left foot, subsequent encounter for fracture with nonunion; X58.XXXD Exposure to other specified factors, subsequent encounter; I10 Essential (primary) hypertension; E78.5 Hyperlipidemia, unspecified
CPT/HCPCS: 20680 ×2; 28730 ×2; 73620; 76000; C1713; J0131; J0690; J1100; J1170; J2250; J2405; J2704; J2795; J3010; J7030

== ENCOUNTER → 2023-06-10 13:28 | Outpatient (BNVA) | payer MEDICARE, SELFPAY | PROVIDERS: PCP Electrodiagnostic Medicine; Visit Provider Podiatrist Foot & Ankle Surgery | DX: Z98.890 Other specified postprocedural states (principal); M96.0 Pseudarthrosis after fusion or arthrodesis; S93.322A Subluxation of tarsometatarsal joint of left foot, initial encounter; X58.XXXA Exposure to other specified factors, initial encounter | CPT/HCPCS: 73630; 99024 ==

== ENCOUNTER → 2023-07-03 13:14 | Outpatient (BNVA) | payer MEDICARE, SELFPAY | PROVIDERS: PCP Electrodiagnostic Medicine; Visit Provider Podiatrist Foot & Ankle Surgery | DX: Z98.890 Other specified postprocedural states (principal); S93.326D Dislocation of tarsometatarsal joint of unspecified foot, subsequent encounter; M96.0 Pseudarthrosis after fusion or arthrodesis; X58.XXXD Exposure to other specified factors, subsequent encounter | CPT/HCPCS: 73630; 99024 ==

== ENCOUNTER → 2023-07-17 15:07 | Outpatient (BNVA) | payer MEDICARE, SELFPAY | PROVIDERS: PCP Electrodiagnostic Medicine; Visit Provider Podiatrist Foot & Ankle Surgery | DX: Z98.890 Other specified postprocedural states | CPT/HCPCS: 73630; 99024 ==

== ENCOUNTER → 2023-08-14 13:53 | Outpatient (BNVA) | payer MEDICARE, SELFPAY | PROVIDERS: PCP Electrodiagnostic Medicine; Visit Provider Podiatrist Foot & Ankle Surgery | DX: Z98.890 Other specified postprocedural states (principal) | CPT/HCPCS: 73630; 99024 ==

== ENCOUNTER → 2023-09-09 14:50 | Outpatient (BNVA) | payer MEDICARE, SELFPAY | PROVIDERS: PCP Electrodiagnostic Medicine; Visit Provider Podiatrist Foot & Ankle Surgery | DX: Z98.890 Other specified postprocedural states (principal); S93.325D Dislocation of tarsometatarsal joint of left foot, subsequent encounter; M96.0 Pseudarthrosis after fusion or arthrodesis; M25.375 Other instability, left foot; X58.XXXD Exposure to other specified factors, subsequent encounter | CPT/HCPCS: 73630; 99213 ==

== ENCOUNTER → 2023-10-21 15:21 | Outpatient (BNVA) | payer MEDICARE, SELFPAY | PROVIDERS: PCP Electrodiagnostic Medicine; Visit Provider Podiatrist Foot & Ankle Surgery | DX: Z98.890 Other specified postprocedural states (principal) | CPT/HCPCS: 73630; 99213 ==

== ENCOUNTER → 2023-12-04 15:06 | Outpatient (BNVA) | payer MEDICARE, SELFPAY | PROVIDERS: PCP Electrodiagnostic Medicine; Visit Provider Podiatrist Foot & Ankle Surgery | DX: M25.375 Other instability, left foot (principal); S93.325D Dislocation of tarsometatarsal joint of left foot, subsequent encounter; Z98.890 Other specified postprocedural states; M96.0 Pseudarthrosis after fusion or arthrodesis; X58.XXXD Exposure to other specified factors, subsequent encounter; M79.2 Neuralgia and neuritis, unspecified | CPT/HCPCS: 64455; 73630; J3490 ==

== ENCOUNTER → 2024-01-05 07:54 | Outpatient (BNVA) | payer MEDICARE, SELFPAY | PROVIDERS: PCP Electrodiagnostic Medicine; Visit Provider Podiatrist Foot & Ankle Surgery | DX: M79.2 Neuralgia and neuritis, unspecified (principal); S93.325D Dislocation of tarsometatarsal joint of left foot, subsequent encounter; X58.XXXD Exposure to other specified factors, subsequent encounter; M25.375 Other instability, left foot; Z98.890 Other specified postprocedural states; M96.0 Pseudarthrosis after fusion or arthrodesis | CPT/HCPCS: 20550; J1100; J3301; J3490 ==

== ENCOUNTER → 2024-02-16 07:58 | Outpatient (BNVA) | payer MEDICARE, SELFPAY | PROVIDERS: PCP Electrodiagnostic Medicine; Visit Provider Podiatrist Foot & Ankle Surgery | DX: M79.2 Neuralgia and neuritis, unspecified (principal); S93.325D Dislocation of tarsometatarsal joint of left foot, subsequent encounter; X58.XXXD Exposure to other specified factors, subsequent encounter; M25.375 Other instability, left foot; Z98.890 Other specified postprocedural states; M96.0 Pseudarthrosis after fusion or arthrodesis | CPT/HCPCS: 20600 ==

== ENCOUNTER → 2024-03-23 09:05 | Outpatient (BNVA) | payer MEDICARE, SELFPAY | PROVIDERS: PCP Electrodiagnostic Medicine; Visit Provider Podiatrist Foot & Ankle Surgery | DX: M79.2 Neuralgia and neuritis, unspecified (principal); S93.325D Dislocation of tarsometatarsal joint of left foot, subsequent encounter; X58.XXXD Exposure to other specified factors, subsequent encounter; M25.375 Other instability, left foot; Z98.890 Other specified postprocedural states; M96.0 Pseudarthrosis after fusion or arthrodesis | CPT/HCPCS: 73630; 99213 ==

== ENCOUNTER 2024-05-21 07:42 | Day surgery (SDC) | payer MEDICARE, SELFPAY ==
--- OUTSIDE RECORDS SUMMARY | 2024-05-13 15:56 | XMS_ITS ---
Author Name Unknown Organization [facility] ALLERGIES AND ADVERSE REACTIONS No information ASSESSMENT No information CHIEF COMPLAINT No information Medications Date Medication Dosage Startdate Stopdate Active Dispense Refills N dccode Drugcode Pharmacyid Isprescription Srcstatus 2022 12:00 :00 AM omeprazole 40 mg capsule,del ayed release 60.0000 00 03/26/2023 12:00:00 AM 12/23/2023 12:00:00 AM 0 60.550351 1 [id number] [facility] [id number] HISTORICAL 2022 12:00 :00 AM oxycodone-a cetaminophe n 10 mg-325 mg tablet 28.0000 00 06/10/2023 12:00:00 AM 12/23/2023 12:00:00 AM 0 28.789672 0 [id number] 209 [id number] [facility] P HISTORICAL 12:00 :00 AM amlodipine 5 mg tablet 90.0000 00 10/19/2023 12:00:00 AM 1 90.566216 1 [id number] 710 [id number] [facility] [id number] ACTIVE 12:00 :00 AM hydrocodone 5 mg-acetamin ophen 325 mg tablet 14.0000 00 07/07/2023 12:00:00 AM 12/23/2023 12:00:00 AM 0 14.269275 0 [id number] 301 [id number] [facility] P HISTORICAL 2022 12:00 :00 AM betamethaso ne acetate and sodium phos 6 mg/ml suspension for injection 12/23/2023 12:00:00 AM 0 [id number] P HISTORICAL 12:00 :00 AM levocetiriz ine 5 mg tablet 30.0000 00 09/23/2023 12:00:00 AM 12/23/2023 12:00:00 AM 0 30.128521 0 [id number] [facility] 0 HISTORICAL 024 12:00 :00 AM atorvastati n 40 mg tablet 90.0000 00 10/10/2023 12:00:00 AM 1 90.716399 2 [id number] 810 [id number] [facility] 1 ACTIVE 2022 12:00 :00 AM levocetiriz ine 5 mg tablet 30.0000 00 0 30.233600 3 [id number] P HISTORI SISSY 08/26 12:00 :00 AM ibuprofen 800 mg tablet 90.0000 00 1 90.310569 3 [id number] P ACTIVE 023 12:00 :00 AM amlodipine 5 mg tablet 90.0000 00 1 90.870392 3 [id number] P ACTIVE 07/03 12:00 :00 AM escitalopra m 10 mg tablet 90.0000 00 1 90.920465 3 [id number] P ACTIVE 07/13 12:00 :00 AM atorvastati n 40 mg tablet 90.0000 00 1 90.392639 3 [id number] P ACTIVE 2023 12:00 :00 AM escitalopra m 10 mg tablet 90.0000 00 12/28/2023 12:00:00 AM 1 90.017005 1 [id number] 601 [id number] [facility]97581 P ACTIVE 2022 12:00 :00 AM hydrocodone 10 mg-acetamin ophen 325 mg tablet 28.0000 00 05/23/2023 12:00:00 AM 12/23/2023 12:00:00 AM 0 28.070210 0 [id number] 501 [id number] [facility] P HISTORICAL 2023 12:00 :00 AM kenalog 40 mg/ml suspension for injection 1 [id number] P ACTIVE 12:00 :00 AM ibuprofen 800 mg tablet 90.0000 00 12/20/2023 12:00:00 AM 1 90.925130 0 [id number] 540 [id number] [facility] 0 ACTIVE 024 12:00 :00 AM tramadol 50 mg tablet 60.0000 00 08/14/2023 12:00:00 AM 12/23/2023 12:00:00 AM 0 60.855813 0 [id number] [facility] HISTORICAL OBJECTIVE DATA No information PHYSICAL EXAMINATION No information TREATMENT PLAN No information PROBLEMS No information RESULTS No information REVIEW OF SYSTEMS No information SUBJECTIVE DATA No information VITAL SIGNS No information
--- OUTSIDE RECORDS SUMMARY | 2024-05-13 15:56 | XMS_ITS ---
Author Name Darrell Wu Address [address] [place] [address] Organization Unknown Address [address] [place] [address] ALLERGIES AND ADVERSE REACTIONS No information ASSESSMENT No information CHIEF COMPLAINT No information MEDICATIONS No information OBJECTIVE DATA No information PHYSICAL EXAMINATION No information TREATMENT PLAN Planned Care Start Date Provider Encounter for Check-up [id number] [facility] PROBLEMS No information RESULTS No information REVIEW OF SYSTEMS No information SUBJECTIVE DATA No information VITAL SIGNS No information
[2024-05-21] VITALS (7 sets, daily range): BP systolic 111–153; BP diastolic 71–102; PULSE 58–92; RESP 14–20; TEMP 36.1–37.2; O2SAT 95–98; BMI 26.6
[2024-05-21] MEDS: gabapentin 300 mg Capsule PO (08:14)
[2024-05-21] MEDS: CELEcoxib 200 mg Capsule 400 MG PO (08:14)
[2024-05-21] MEDS: sodium chloride 0.9% 1,000 ML 30 ML IV (08:15)
--- NOTE | 2024-05-21 08:31 | ANES.PREANE2 ---
Pre-Anesthetic Assessment Height/Weight: Height 5 ft 8 in Weight 175 lb Temp Pulse Resp BP Pulse Ox O2 Del Method 97.0 F L 92 18 153/102 96 Room Air 05/21/24 08:03 05/21/24 08:03 05/21/24 08:03 05/21/24 08:03 05/21/24 08:03 05/21/24 08:03 Preop Diagnosis: Painful hardware left foot Operation Date: 05/21/24 09:10 Proposed Procedures p Deep hardware removal left foot first ray and Deep hardware removal left foot second ray(Left) - Santiago Nam DPM Last intake: Intake Last Liquid Date 05/20/24 Last Liquid Time 19:00 Last Solid Date 05/20/24 Last Solid Time 19:00 Social No alcohol and No tobacco Exam alert, oriented x 3, clear to auscultation bilaterally and regular rate & rhythm Airway Submandibular: within normal limits Cervical ROM: within normal limits Mallampati: Class II Dentition: full Anesthetic Plan ASA status: 2 Anesthesia: MAC Other: No prior issues with anesthesia NPO since midnight History of hypertension, on amlodipine EKG showing sinus bradycardia Patient denies any pulmonary issues Plan for MAC anesthetic with local via surgeon Medications/Allergies Home Medications Medication Instructions Recorded Confirmed Last Taken Type amlodipine 5 mg tablet 5 mg PO DAILY 08/30/21 05/20/24 05/20/24 History ibuprofen 800 mg tablet 800 mg PO TID PRN Mild Pain (Scale 08/30/21 05/20/24 05/20/24 History Score 1-4) Custom Molded Orthotics #1 ea 12/12/21 03/23/24 Unknown Rx escitalopram oxalate 10 mg tablet 10 mg PO DAILY 01/12/23 05/20/24 05/20/24 History (Lexapro) SMO to left #1 ea 09/09/23 03/23/24 Unknown Rx atorvastatin 40 mg tablet 40 mg PO DAILY 09/09/23 05/20/24 05/20/24 History tramadol 50 mg tablet 100 mg (2 x 50 mg) PO Q12H PRN 05/12/24 05/20/24 Unknown Rx pain 7 days #28 tabs sennosides 8.6 mg-docusate sodium 1 tab PO DAILY PRN Constipation 09/05/24 09/05/24 09/05/24 History 50 mg tablet (Stool Softener-Laxative) hydrocodone 10 mg-acetaminophen 1 tab PO Q6H PRN pain 7 days #28 05/21/24 Unknown Rx 325 mg tablet tabs ondansetron HCl 8 mg tablet 8 mg PO Q8H PRN nausea and 05/21/24 Unknown Rx vomiting 7 days #21 tabs Allergies Allergy/AdvReac Type Severity Reaction Status Date / Time No Known Allergies Allergy Verified 05/20/24 10:38 Current Medications Generic Name Dose Route Start Last Admin Trade Name Freq PRN Reason Stop Dose Admin Sodium Chloride 1,000 mls @ 30 mls/hr 05/21/24 08:00 05/21/24 08:15 Sodium Chloride 0.9% IV 05/22/24 07:59 30 mls/hr .Q24H SAIDA Administration PFSH Anesthesia Medical History Lumbar radiculopathy, acute Spinal stenosis, lumbar region, with neurogenic claudication Herniated nucleus pulposus, L2-3 left Hypokalemia DDD (degenerative disc disease), lumbar Lumbar radiculopathy Dehydration Nausea Back pain Lumbar radiculopathy, chronic HTN (hypertension) Hyperlipidemia Lisfranc fracture Surgical History Status post lumbar laminectomy S/P arthroscopic knee surgery (~2013) S/P hysterectomy (~1995) S/P bladder repair S/P foot surgery, right Family History Mother Heart disease Father Heart disease Cancer Brother Cancer Colon CA Social History Smoking and tobacco/nicotine status: current every day tobacco/nicotine user Quit status (tobacco/nicotine): has quit using Year quit tobacco: 1997 2 pack per day Former quit date comment: smoked for 30 years Alcohol intake: current Alcohol intake frequency: 3 or more drinks per day Alcohol type: beer Substance/Drug Use: never Lives independently: Yes Household members: spouse Housing: House Marital status: Number of children: 3 Pets and animals: No Data Anesthesia Cardiac Studies: Echocardiogram 01/12/23
--- NOTE | 2024-05-21 09:33 | W.PM.OPSUD ---
Surgery/Procedure H&P Update DATE OF PROCEDURE: May 21, 2024 DATE H&P PERFORMED: 03/23/24 H&P UPDATE INFORMATION: I have reviewed H&P completed within last 30 days, I have examined patient prior to procedure, No changes to prior documentation and H&P is in [facility] EMR on date indicated PREOP DIAGNOSIS: Painful hardware left foot PLANNED PROCEDURE: Operation Date: 05/21/24 09:10 Proposed Procedures p Deep hardware removal left foot first ray and Deep hardware removal left foot second ray(Left) - Santiago Nam DPM
[2024-05-21] MEDS: ceFAZolin 2,000 mg SDV 2000 MG IVP (09:49)
[2024-05-21] MEDS: BUPivacaine 0.5% INJ 10 mL 20 ML INJECTION (10:08)
[2024-05-21] MEDS: BUPivacaine liposome 13.3 mg/mL SDV 20 mL 266 MG INJECTION (10:08)
--- NOTE | 2024-05-21 10:36 | P.BOP_ITS ---
Date of Procedure: 11/28/23 Surgeon: Santiago Nam DPM Cnc Machine Setter(s): Julio Cesar Procedure(s) performed: Hardware removal left foot Findings of the procedure(s): None Estimated blood loss: 2 mL Specimen(s) removed: 11 screws 2 plates Post-operative diagnosis: Hardware pain left foot
--- NOTE | 2024-05-21 10:37 | PM.OP ---
Operative Report Date of procedure: May 21, 2024 Pre-op diagnosis: Painful hardware left foot T84.84 XA Post-op diagnosis: Painful hardware left foot T84.84 XA Procedure done: 1)Deep hardware removal left foot first ray. CPT code 85236 2)Deep hardware removal left foot second ray. CPT code 01475 Implants: 4-0 Vicryl, 4-0 nylon Surgeon: Santiago Nam DPM Structural Architect: Julio Cesar Estimated blood loss: 2 28 Complications: None Brief History: Patient requesting heart removal suspicious this may be her source of pain. Explained to patient that hardware removal may not be quite to pain relief patient stresses understanding. I reviewed at length with the patient, the risks, potential complications, benefits, alternatives, expectations, and typical outcomes associated with the surgery. The risks and potential complications were explained in detail, including but not limited to infection, wound dehiscence or soft tissue complications, bleeding and hematoma, chronic edema, neuritis or nerve damage producing numbness or chronic pain, CRPS, failure to relieve pain or worsening pain, thick / painful / unsightly scar, limited motion / stiffness, malposition, delayed union, malunion, or nonunion, fracture, reaction to implants, anesthetic complications, venous thromboembolism, and deformity recurrence. I discussed the notion of no regrets with the patient as it pertains to complications and outcomes. The patient seemed to understand the nature of the proposed care and required convalescence. They asked appropriate questions, answered to their satisfaction. They are aware no guarantees can be made as to a satisfactory outcome and they understand there may be other possible unforeseen complications or outcomes not listed here that will be treated accordingly if they arise. There were no written or implied guarantees given to the patient. They gave informed consent to proceed. Procedure: Under mild sedation the patient was brought to the operating and remained on the gurney in supine position. A timeout was performed. Anesthesia was administered by the anesthesia service. Local anesthesia injected by myself consisting of 20 cc of 0.5% Marcaine plain in a V-block fashion to the dorsal midfoot and an additional 20 cc of Exparel subcutaneously in a grid like fashion proximal to the operative site. Well-padded pneumatic tourniquet applied to the left ankle. The left lower extremity was scrubbed, prepped and draped utilizing normal aseptic technique. Left foot was exanguinated with an Esmarch bandage and tourniquet inflated to 250 mmHg. Attention was directed to the first and second ray of the left foot where 2 incisions were made in a linear fashion over the previous cicatrix with dissection carried down through subcutaneous tissue to the layer of hardware both at the first and second ray utilizing sharp and blunt technique. Care was taken to retract and preserve neurovascular and tendinous structures. All bleeders were ligated and cauterized as necessary. Plates and screws were removed in total as well as homerun screw at the first tarsometatarsal joint arthrodesis site. Previous fragmented hardware was left intact this was from previous surgeries. The incision was irrigated with copious amounts of sterile saline solution. All bleeders were ligated and cauterized as necessary. The incisions were then closed utilizing layered technique with subcutaneous tissue reapproximated with 4-0 Vicryl and skin with 4-0 nylon. Incisions were dressed with Adaptic, sterile 4 x 4's, Kerlix and Dain wrap followed by application of a postop shoe. Tourniquet was deflated and a prompt hyperemic response is noted to all 5 digits of the left foot, patient tolerated the procedure and anesthesia well and was transferred to the PACU with vital signs stable vascular status intact. Following a period of postoperative monitoring show be discharged home on IV weightbearing as tolerated was given at home care instructions and scheduled follow-up.
--- NOTE | 2024-05-21 11:36 | ANE.PACU2 ---
Inpatient post-anesthesia follow up: Airway intact: Yes Vital signs: Temperature 98.1 F Pulse Rate 58 Respiratory Rate 18 Blood Pressure 147/82 Pulse Oximetry 98 Oxygen Delivery Me thod Room Air Oxygen Flow Rate Fraction of Inspir ed Oxygen Hydration adequate: Yes Nausea and vomiting: No Pain level: 1 Mental status: Baseline
== END 2024-05-21 11:36 | disposition home or self-care (01) ==
PROVIDERS: PCP Electrodiagnostic Medicine; Visit Provider Podiatrist Foot & Ankle Surgery
PROC: (CPT 20680; principal; 2024-05-21 09:00)
DX: T84.84XA Pain due to internal orthopedic prosthetic devices, implants and grafts, initial encounter (principal); Y82.8 Other medical devices associated with adverse incidents; I10 Essential (primary) hypertension; E78.5 Hyperlipidemia, unspecified; F17.200 Nicotine dependence, unspecified, uncomplicated; M96.0 Pseudarthrosis after fusion or arthrodesis
CPT/HCPCS: 20680; C9290; J0690; J2250; J2704; J3010; J3490; J7030

== ENCOUNTER → 2024-06-03 08:30 | Outpatient (BNVA) | payer MEDICARE, SELFPAY | PROVIDERS: PCP Electrodiagnostic Medicine; Visit Provider Podiatrist Foot & Ankle Surgery | DX: Z98.890 Other specified postprocedural states (principal) | CPT/HCPCS: 99024 ==

== ENCOUNTER → 2024-07-01 12:55 | Outpatient (BNVA) | payer MEDICARE, SELFPAY | PROVIDERS: PCP Electrodiagnostic Medicine; Visit Provider Podiatrist Foot & Ankle Surgery | DX: Z98.890 Other specified postprocedural states (principal) | CPT/HCPCS: 99024 ==

== ENCOUNTER 2024-07-02 07:45 | Outpatient (CLI) | payer MEDICARE, SELFPAY ==
--- NOTE | 2024-07-02 07:54 | MR_ITS ---
WS: [id number] MRI CERVICAL SPINE NONCONTRAST TECHNIQUE: Sagittal T1, T2 and STIR imaging. Axial T2, gradient, and fiesta imaging. CLINICAL INFORMATION: Intervertebral disc disorder of cervical region COMPARISON: None. FINDINGS: Straightening the normal cervical lordosis. Moderate spondylitic changes. Disc space narrowing worse at C4-C5 C5-C6 and C6-C7. Slight retrolisthesis C4 on C5. Endplate degenerative changes at C4-5 and C 5-6. Cord signal appears normal. C2-C3: Mild facet arthropathy. Mild LEFT bony foraminal narrowing. Tiny central protrusion. Spinal ca nal is patent. C3-C4: Mild disc bulging with osteophytic ridging. Mild central canal stenosis. Moderate facet arthro martir. Moderate bilateral bony foraminal narrowing. C4-C5: Slight retrolisthesis. Disc osteophyte complex with mild to moderate central canal stenosis. S evere LEFT and moderate RIGHT bony foraminal narrowing. Uncovertebral joint hypertrophy. Mild facet a rthropathy. C5-C6: Disc osteophyte complex with mild central canal stenosis and slight indentation on the cervica l cord. Severe LEFT and mild RIGHT bony foraminal narrowing. Uncovertebral joint hypertrophy. Mild fa cet arthropathy. C6-C7: Disc osteophyte complex with mild central canal stenosis. Moderate bilateral bony foraminal na rrowing. C7-T1: Disc osteophyte complex with endplate ridging. Mild RIGHT greater than LEFT bony foraminal kristy rowing. Spinal canal is patent. Small disc protrusions in the upper thoracic spine at T1-2 and T2 3. Moderate bilateral T1-2 foraminal narrowing. Small RIGHT thyroid cyst measuring 3 mm. Visualized brain stem structures: Normal. Prevertebral soft tissues: Normal. MR/MR cervical spin wo con* [id number] IMPRESSION: 1. Straightening of the normal cervical doses with slight retrolisthesis C4 on C5. 2. To space narrowing worse at C4-C5 C5-C6 and C6-C7. 3. Mild to moderate central canal stenosis C3-C4 C4-C5 and C5-C6 described abo ve. 4. Severe LEFT C4-C5 and LEFT C5-C6 bony foraminal narrowing. 5. Moderate bilateral C6-7 bony foraminal narrowing.
== END 2024-07-02 07:46 | disposition home or self-care (01) ==
PROVIDERS: PCP Electrodiagnostic Medicine; Visit Provider Electrodiagnostic Medicine
DX: M47.892 Other spondylosis, cervical region (principal); M99.61 Osseous and subluxation stenosis of intervertebral foramina of cervical region; M25.78 Osteophyte, vertebrae
CPT/HCPCS: 72141

== ENCOUNTER → 2024-07-27 11:30 | Outpatient (BNVA) | payer MEDICARE, SELFPAY | PROVIDERS: PCP Electrodiagnostic Medicine; Referring Provider Electrodiagnostic Medicine; Visit Provider Psychiatry & Neurology Neurology | DX: G56.03 Carpal tunnel syndrome, bilateral upper limbs (principal) | CPT/HCPCS: 95910 ==

== ENCOUNTER → 2024-08-26 13:37 | Outpatient (BNVA) | payer MEDICARE, SELFPAY | PROVIDERS: PCP Electrodiagnostic Medicine; Visit Provider Podiatrist Foot & Ankle Surgery | DX: Z98.890 Other specified postprocedural states (principal) | CPT/HCPCS: 99024 ==

== ENCOUNTER 2024-11-08 12:55 | Outpatient (RCR) | payer MEDICARE, SELFPAY | END 2024-11-12 23:59 | disposition home or self-care (01) | LOC: SPO 12:55 | PROVIDERS: Visit Provider Physical Medicine & Rehabilitation | DX: R26.89 Other abnormalities of gait and mobility (principal); Z98.890 Other specified postprocedural states | CPT/HCPCS: 97110; 97112; 97162 ==

== ENCOUNTER 2024-11-13 06:30 | Outpatient (RCR) | payer MEDICARE, SELFPAY | END 2024-12-13 23:59 | disposition home or self-care (01) | LOC: SPO 06:30 | PROVIDERS: Visit Provider Physical Medicine & Rehabilitation | DX: R26.89 Other abnormalities of gait and mobility (principal); Z98.890 Other specified postprocedural states | CPT/HCPCS: 97110; 97112; 97167; 97530 ==

== ENCOUNTER 2024-12-14 05:00 | Outpatient (RCR) | payer MEDICARE, SELFPAY | END 2025-01-12 23:59 | disposition home or self-care (01) | LOC: SPO 05:00 | PROVIDERS: Visit Provider Physical Medicine & Rehabilitation | DX: R26.89 Other abnormalities of gait and mobility (principal); M50.020 Cervical disc disorder with myelopathy, mid-cervical region, unspecified level; Z98.890 Other specified postprocedural states | CPT/HCPCS: 97110; 97530 ==

== ENCOUNTER 2025-01-13 05:00 | Outpatient (RCR) | payer MEDICARE, SELFPAY | END 2025-02-12 23:59 | disposition home or self-care (01) | LOC: SPO 05:00 | PROVIDERS: Visit Provider Physical Medicine & Rehabilitation | DX: R26.89 Other abnormalities of gait and mobility (principal); M50.20 Other cervical disc displacement, unspecified cervical region; Z98.890 Other specified postprocedural states | CPT/HCPCS: 97110 ==

== ENCOUNTER → 2025-02-15 10:29 | Outpatient (BNVA) | payer MEDICARE, SELFPAY | PROVIDERS: PCP Electrodiagnostic Medicine; Visit Provider Physician Assistant | DX: G56.03 Carpal tunnel syndrome, bilateral upper limbs (principal); G56.22 Lesion of ulnar nerve, left upper limb | CPT/HCPCS: 73130; 99204 ==

== ENCOUNTER 2025-03-07 08:42 | Day surgery (SDC) | payer MEDICARE, SELFPAY ==
[2025-03-07] VITALS (10 sets, daily range): BP systolic 151–168; BP diastolic 75–99; PULSE 73–81; RESP 14–23; TEMP 36.3–36.9; O2SAT 95–100; BMI 25.8
[2025-03-07] MEDS: sodium chloride 0.9% 1,000 ML 30 ML IV (09:11)
[2025-03-07] MEDS: acetaminophen 1,000 MG/100 ML PIGGYBACK 400 MG IV (09:11)
[2025-03-07] MEDS: ketorolac 30 mg/mL INJ IVP (09:12)
[2025-03-07] MEDS: scopolamine 1 mg PATCH 1 PATCH TRANSDERMA (09:14)
--- NOTE | 2025-03-07 10:12 | ANES.PREANE2 ---
Pre-Anesthetic Assessment Height/Weight: Height 1.73 m Weight 77.111 kg Temp Pulse Resp BP Pulse Ox O2 Del Method 97.4 F L 79 18 155/93 97 Room Air 03/07/25 09:00 03/07/25 09:00 03/07/25 09:00 03/07/25 09:00 03/07/25 09:00 03/07/25 09:02 Operation Date: 03/07/25 11:35 Proposed Procedures p RIGHT Carpal Tunnel Release(Right) - Richie Deanna, DO s RIGHT Cubital Tunnel Release(Right) - Richie Deanna, DO s POSSIBLE Ulnar Nerve Transposition(Right) - Richie [place], DO Familial anesthetic complications: None Was Beta Beverly taken within 24 hours: N/A Was Clonidine taken within 24 hours: N/A Last intake: Intake Last Liquid Date 03/06/25 Last Liquid Time 20:00 Last Solid Date 03/06/25 Last Solid Time 20:00 Social Tobacco and No alcohol Exam alert, oriented x 3, clear to auscultation bilaterally and regular rate & rhythm Airway Mallampati: Class I Dentition: full CV/HEM Hypertension Neuropsych 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 Medications/Allergies Home Medications ?Medication ?Instructions ?Recorded ?Confirmed ?Last Taken ?Type amlodipine 5 mg tablet 5 mg PO DAILY 08/30/21 03/04/25 03/06/25 History Custom Molded Orthotics #1 ea 12/12/21 02/15/25 Unknown Rx escitalopram oxalate 10 mg tablet 10 mg PO DAILY 01/12/23 03/04/25 03/06/25 History (Lexapro) SMO to left #1 ea 09/09/23 02/15/25 Unknown Rx atorvastatin 40 mg tablet 40 mg PO DAILY 09/09/23 03/04/25 03/06/25 History hydrocodone 5 mg-acetaminophen 325 1 tab PO Q8H PRN pain 7 days #21 08/26/24 03/04/25 03/06/25 Rx mg tablet tabs baclofen 10 mg tablet 10 mg PO DAILY PRN Pain 03/04/25 03/04/25 03/06/25 History Allergies Allergy/AdvReac Type Severity Reaction Status Date / Time No Known Allergies Allergy Verified 03/07/25 08:56 Current Medications Generic Name Dose Route Start Last Admin Trade Name Jaredq PRN Reason Stop Dose Admin Sodium Chloride 1,000 mls @ 30 mls/hr 03/07/25 09:00 03/07/25 09:11 Sodium Chloride 0.9% IV 03/08/25 08:59 30 mls/hr .Q24H SAIDA Administration PFSH Anesthesia Medical History Lumbar radiculopathy, acute Spinal stenosis, lumbar region, with neurogenic claudication Herniated nucleus pulposus, L2-3 left Hypokalemia DDD (degenerative disc disease), lumbar Lumbar radiculopathy Dehydration Nausea Back pain Lumbar radiculopathy, chronic HTN (hypertension) Hyperlipidemia Lisfranc fracture Surgical History Status post lumbar laminectomy S/P arthroscopic knee surgery (~2013) S/P hysterectomy (~1995) S/P bladder repair S/P foot surgery, right Family History Mother Heart disease Father Heart disease Cancer Brother Cancer Colon CA Social History Smoking and tobacco/nicotine status: former use of tobacco/nicotine Quit status (tobacco/nicotine): has quit using Year quit tobacco: 1997 2 pack per day Former quit date comment: smoked for 30 years Alcohol intake: current Alcohol intake frequency: 3 or more drinks per day Alcohol type: beer Substance/Drug Use: never Lives independently: Yes Household members: spouse Housing: House Marital status: Number of children: 3 Pets and animals: No Data Anesthesia Cardiac Studies: Echocardiogram 01/12/23
--- NOTE | 2025-03-07 10:33 | W.PM.OPSUD ---
Surgery/Procedure H&P Update DATE OF PROCEDURE: March 07, 2025 DATE H&P PERFORMED: 02/15/25 H&P UPDATE INFORMATION: I have reviewed H&P completed within last 30 days, I have examined patient prior to procedure and No changes to prior documentation PREOP DIAGNOSIS: Right carpal tunnel syndrome, right cubital tunnel syndrome PRIMARY INDICATION FOR PROCEDURE: Right carpal tunnel syndrome, right cubital tunnel syndrome PLANNED PROCEDURE: Operation Date: 03/07/25 11:35 Proposed Procedures p RIGHT Carpal Tunnel Release(Right) - DO parag King RIGHT Cubital Tunnel Release(Right) - DO parag King POSSIBLE Ulnar Nerve Transposition(Right) - Richie Huerta DO
[2025-03-07] MEDS: ceFAZolin 2,000 MG in sodium chloride 0.9% (plus) 50 ML 100 MG IV (11:12)
[2025-03-07] MEDS: lidocaine-epi 1% 20 mL INJ (11:22)
[2025-03-07] MEDS: ROPivacaine 0.5% SDV 30 mL 150 MG (11:22)
--- NOTE | 2025-03-07 12:11 | W.PM.BPON ---
Date of Procedure: 03/07/2025 Surgeon: Richie Huerta DO Marketing Assistant(s): None Procedure(s) performed: Right carpal tunnel release Right cubital tunnel release (ulnar nerve decompression at the elbow) Findings of the procedure(s): Patient underwent procedure as planned without issues or complications. Upon release of the ulnar nerve there was no evidence of instability or subluxation as a result there was no transposition performed. Patient was taken to recovery in stable condition. Estimated blood loss: 10 mL Specimen(s) removed: None Post-operative diagnosis: Right carpal tunnel syndrome, right cubital tunnel syndrome
--- NOTE | 2025-03-07 12:15 | P.OP_ITS ---
Operative Report Date of procedure: March 07, 2025 Surgeon: Richie Huerta DO Procedure: Preoperative diagnosis: Right carpal tunnel syndrome, right cubital tunnel syndrome postop Diagnosis: Same Procedure done: Right carpal tunnel release Right?cubital tunnel tunnel release (ulnar nerve decompression at elbow) Surgeon: Richie Huerta DO Estimated blood loss: 10 mL Tourniquet? 17 minutes IV fluids: 800 mL Complications: None Findings: See operative report narrative Condition: stable Disposition: same day Brief History: Patient's been seen and worked up in the outpatient setting and findings consistent with preoperative diagnosis.? Patient has right carpal tunnel syndrome as well as right?cubital tunnel syndrome which has been worked up in the outpatient setting has physical exam findings consistent with cubital tunnel syndrome as well as confirmatory nerve conduction/EMG nerve conduction study consistent with diagnosis of carpal tunnel syndrome.? Patient's failed conservative treatment.? As result through shared decision making agreed to proceed with? right carpal tunnel and right?cubital tunnel release with possible ulnar nerve transposition we talked about treatment options as far as nonoperative and operative intervention.? Understands risk benefits complication alternatives surgical nonsurgical treatment options.? Understanding risks patient agrees to proceed with surgical intervention. Understanding these risks patient agrees to proceed with surgery.? Consent obtained in preoperative holding area. Procedure: Patient seen evaluate in the preoperative holding area.? Consent was reviewed and signed with patient.? Correct extremity marked.? Patient seen evaluated by anesthesia department once cleared for surgery was then taken back to the operative suite placed in supine position all bony prominences well-padded patient properly secured to bed.? right upper extremity placed onto armboard.? Nonsterile tourniquet applied right upper arm.? Patient then underwent anesthesia per the anesthesia department.? Patient's right upper extremity was then prepped and draped in standard orthopedic fashion.? Final timeout performed.? Patient received appropriate preoperative antibiotics. Esmarch was used exsanguinate the right upper extremity.? Tourniquet was insufflated to 250 mmHg. I started with the carpal tunnel release first.? I made a standard open carpal tunnel release starting with the distal most extent in the palm at the Davidson's cardinal line and the incision line was made in line with the fourth ray and ended just distal to the wrist crease.? Sharp scalpel incision was made through skin and subcutaneous tissue I then utilizing self retainer then began to dissect with dissection scissors split longitudinally the palmar fascia.? Next I then utilizing my autopsy assistant Heath retractors subsequently utilizing scalpel feathered through the palmaris brevis as well as through the transverse carpal ligament distally.? Once I encountered the floor of the transverse carpal ligament and entered into the carpal tunnel I then switched to dissection scissors.? Carefully released the distal extent of the transverse carpal ligament to the palmar fat.? Care was to protect the recurrent branch and not injured this during this part of the case.? Next I then placed a Wilmette underneath the transverse carpal ligament proximally to protect the nerve in the carpal tunnel contents.? And then I subsequently under loupe magnification utilize my dissection scissors to release the transverse carpal ligament into the antebrachial fascia under direct visualization with care to keep my scissors with a curved ulnarly away from the palmar cutaneous branch.? The transverse carpal was then completely decompressed proximally and a Wilmette was then placed both distally and proximally throughout the carpal tunnel and had complete decompression of the nerve.? The nerve did appear to have hourglass shape as it went through the carpal tunnel.? With significant irritation noted around the nerve.? No masses were noted within the contents of the carpal tunnel.? This completed the carpal tunnel release and then I subsequently irrigated the wound bed and placed a wet Ray-Ben into the incision for later closure. Next marked out the landmarks of the right elbow of the medial epicondyle and olecranon and made a curvilinear incision following the course of the ulnar nerve at the medial aspect of the elbow.? Sharp scalpel incision was made through skin and subcutaneous tissue.? Next I switched to Littler dissection scissors and spread in plane of the medial antebrachial cutaneous nerve branching which was protected throughout this part of the dissection.? Then I directly came down over the fascia and identified the 2 heads of the FCU fascia and split this right in the middle and subsequently identified my ulnar nerve distally.? This was then completely released distally under direct visualization and loupe magnification.? Once the nerve was then identified I then subsequently tracked this proximally and released this through Olson's ligament as well as complete decompression of the nerve proximally all the way past the intermuscular septum.? The nerve was completely released and decompressed both proximally and distally.? Ulnar nerve neurolysis performed and completed both proximally and distally with dissection scissors.? I then took the elbow through range of motion and there was no instability or subluxating of the ulnar nerve.? This completed?cubital tunnel release.? ?Next the wound bed was thoroughly irrigated.? Tourniquet was deflated.? Hemostasis was satisfactory at the?cubital tunnel release surgery site. I then inspected the carpal tunnel incision and this was found to have satisfactory hemostasis and all this was maintained through bipolar electrocautery.? At this point time I sequentially closed?cubital tunnel site with 3-0 Vicryl suture in a running horizontal mattress nylon stitch.? ? The carpal tunnel release surgery was then closed in standard interrupted mattress fashion.? Dressing was Xeroform 4 x 4's ABD Curlex soft roll and an Dain wrap has a bulky soft dressing. Patient was then awakened from anesthesia and taken to PACU in stable condition. Disposition: Patient taken to PACU in stable condition recovering well.? Patient will receive appropriate discharge instructions as well as pain medication pos toperatively.? We will follow-up with me in the office in 2 weeks.? Patient understands agrees with current plan.? All questions answered.? He understands if any questions or concerns and contact the office for follow-up appointment..
--- NOTE | 2025-03-07 12:20 | PM.PACU ---
PACU note Narrative: Patient is a 69-year-old female that just underwent a right carpal tunnel right cubital tunnel release. Patient transferred to PACU in stable condition. Pain is well controlled. Dressing on hand is dry and in place. Patient's fingers are warm and well-perfused. Patient can wiggle fingers. normal cap refill under 2 seconds. Patient has normal elbow range of motion. Sensation to fingers intact. Exam: awake Disposition: discharged
--- NOTE | 2025-03-07 13:02 | ANE.PACU2 ---
Inpatient post-anesthesia follow up: Airway intact: Yes Vital signs: Temperature 97.6 F Pulse Rate 81 Respiratory Rate 18 Blood Pressure 160/88 Pulse Oximetry 96 Oxygen Delivery Me thod Room Air Oxygen Flow Rate Fraction of Inspir ed Oxygen Hydration adequate: Yes Nausea and vomiting: No Pain level: 1 Mental status: Baseline
== END 2025-03-07 13:00 | disposition home or self-care (01) ==
PROVIDERS: PCP Electrodiagnostic Medicine; Visit Provider Student in an Organized Health Care Education/Training Program
PROC: (CPT 64721; principal; 2025-03-07 11:25)
PROC: (CPT 64718; 2025-03-07 11:25)
DX: G56.01 Carpal tunnel syndrome, right upper limb (principal); G56.21 Lesion of ulnar nerve, right upper limb; I10 Essential (primary) hypertension; Z87.891 Personal history of nicotine dependence; E87.6 Hypokalemia; E78.5 Hyperlipidemia, unspecified
CPT/HCPCS: 64718; 64721; J0131; J0690; J1100; J1885; J2250; J2371; J2405; J2704; J2795; J3010; J7030; J9999

== ENCOUNTER → 2025-03-22 14:53 | Outpatient (BNVA) | payer MEDICARE, SELFPAY | PROVIDERS: PCP Electrodiagnostic Medicine; Visit Provider Physician Assistant | DX: G56.03 Carpal tunnel syndrome, bilateral upper limbs (principal); Z98.890 Other specified postprocedural states; G56.22 Lesion of ulnar nerve, left upper limb | CPT/HCPCS: 99214 ==

== ENCOUNTER 2025-04-11 14:12 | Outpatient (RCR) | payer MEDICARE, SELFPAY | END 2025-04-14 23:59 | disposition home or self-care (01) | LOC: SPT 14:12 | PROVIDERS: Visit Provider Orthopaedic Surgery | DX: R29.898 Other symptoms and signs involving the musculoskeletal system (principal) | CPT/HCPCS: 97110; 97161 ==

== ENCOUNTER 2025-04-15 05:00 | Outpatient (RCR) | payer MEDICARE, SELFPAY | END 2025-05-15 23:59 | disposition home or self-care (01) | LOC: SPT 05:00 | PROVIDERS: Visit Provider Orthopaedic Surgery | DX: R29.898 Other symptoms and signs involving the musculoskeletal system (principal); R26.89 Other abnormalities of gait and mobility; R26.81 Unsteadiness on feet | CPT/HCPCS: 97110 ==

== ENCOUNTER 2025-05-16 05:00 | Outpatient (RCR) | payer MEDICARE, SELFPAY | END 2025-06-14 23:59 | disposition home or self-care (01) | LOC: SPT 05:00 | PROVIDERS: PCP Electrodiagnostic Medicine; Visit Provider Orthopaedic Surgery | DX: R29.898 Other symptoms and signs involving the musculoskeletal system (principal) | CPT/HCPCS: 97110; 97530 ==

== ENCOUNTER 2025-05-26 06:04 | Day surgery (SDC) | payer MEDICARE, SELFPAY ==
[2025-05-26] VITALS (9 sets, daily range): BP systolic 130–165; BP diastolic 78–97; PULSE 67–76; RESP 16–18; TEMP 36.1–36.3; O2SAT 94–99
[2025-05-26] MEDS: acetaminophen 1,000 MG/100 ML PIGGYBACK 400 MG IV (06:49)
--- NOTE | 2025-05-26 07:13 | W.PM.OPSFHP ---
Same Day Surgery H&P Indication for Procedure/HPI DATE OF PROCEDURE: May 26, 2025 CHIEF COMPLAINT/INDICATIONFOR SURGICAL PROCEDURE: Left carpal tunnel syndrome, left cubital tunnel syndrome PREOP DIAGNOSIS: Left carpal tunnel syndrome left cubital tunnel syndrome PLANNED PROCEDURE: Operation Date: 05/26/25 07:45 Proposed Procedures p Carpal Tunnel Release(Left) - Richie Huerta, DO s Cubital Tunnel Release(Left) - Richie Huerta, DO s Ulnar Nerve Transposition(Left) - Richie Huerta, DO Medications/Allergies* Home Medications ?Medication ?Instructions ?Recorded ?Confirmed ?Type amlodipine 5 mg tablet 5 mg PO QPM 08/30/21 05/26/25 History escitalopram oxalate 10 mg tablet 10 mg PO DAILY 01/12/23 05/26/25 History (Lexapro) atorvastatin 40 mg tablet 40 mg PO QPM 09/09/23 05/26/25 History baclofen 10 mg tablet 10 mg PO DAILY PRN Pain 03/04/25 05/26/25 History Allergies/Adverse Reactions Allergy/AdvReac Type Severity Reaction Status Date / Time No Known Allergies Allergy Verified 05/24/25 14:09 Current Medications: Generic Name Dose Route Start Last Admin Trade Name Freq PRN Reason Stop Dose Admin Sodium Chloride 1,000 mls @ 30 mls/hr 05/26/25 06:00 05/26/25 06:48 Sodium Chloride 0.9% IV 05/27/25 05:59 30 mls/hr .Q24H SAIDA Administration Pertinent History/Comorbid Conditions* Medical History (Updated 02/17/25 @ 16:10 by ALBER Jean) Lumbar radiculopathy, acute Spinal stenosis, lumbar region, with neurogenic claudication Herniated nucleus pulposus, L2-3 left Hypokalemia DDD (degenerative disc disease), lumbar Lumbar radiculopathy Dehydration Nausea Back pain Lumbar radiculopathy, chronic HTN (hypertension) Hyperlipidemia Lisfranc fracture Surgical History (Updated 03/22/25 @ 15:16 by ALBER Jean) Status post lumbar laminectomy S/P arthroscopic knee surgery (~2013) S/P hysterectomy (~1995) S/P bladder repair S/P foot surgery, right Family History (Updated 08/30/21 @ 09:05 by Kristal Fung RN) Heart disease Mother Father Cancer Father Brother Colon CA Social History Smoking and tobacco/nicotine status: former use of tobacco/nicotine Quit status (tobacco/nicotine): has quit using Year quit tobacco: 1997 2 pack per day Former quit date comment: smoked for 30 years Alcohol intake: current Alcohol intake frequency: 3 or more drinks per day Alcohol type: beer Substance/Drug Use: never Lives independently: Yes Household members: spouse Housing: House Marital status: Number of children: 3 Pets and animals: No Pertinent Exam Findings alert, oriented x 3, operative site marked and procedure specific exam findings Please refer to detailed orthopedic examination on 03/22/2025 listed below: Left Hand exam-positive Tinel's and positive Phalen's test. thenar atrophy and thenar muscle weakness. Full range of motion in fingers and wrist and fingers are warm and well-perfused with normal cap refill under 2 seconds. Radial pulse 2+, intrinsic muscle weakness noted. left Elbow exam-Positive Tinel's test Right hand and right elbow?surgical incision sites healing well no signs of infection noted. Sutures are intact and no wound dehiscence seen. No erythema, warmth or purulent drainage seen. Full range of motion in elbow, fingers and wrist and normal financial aid advisor strength 5 out of 5. Radial pulse 2+. Fingers are warm and well-perfused. Recommendations Risks and benefits of procedure reviewed and Patient/family agree to proceed Surgery/Procedure today Other Plans: Plan to proceed to the OR today for left carpal tunnel release, left cubital tunnel release. Patient understands incidence procedure the risk benefits complication alternatives surgical nonsurgical treatment options. Understanding risk of surgery patient like proceed surgical invention. All questions answered at this time. Coding Level of Care Code Acute Code for [employer] [facility]
--- NOTE | 2025-05-26 07:31 | ANES.PREANE2 ---
Pre-Anesthetic Assessment Height/Weight: Height 1.73 m Weight 75.75 kg Temp Pulse Resp BP Pulse Ox O2 Del Method 97 F L 71 16 135/82 97 Room Air 05/26/25 06:33 05/26/25 06:33 05/26/25 06:33 05/26/25 06:33 05/26/25 06:33 05/26/25 06:33 Preop Diagnosis: Left carpal tunnel syndrome left cubital tunnel syndrome Operation Date: 05/26/25 07:45 Proposed Procedures p Carpal Tunnel Release(Left) - Richie Branch, DO s Cubital Tunnel Release(Left) - Richie Branch, DO s Ulnar Nerve Transposition(Left) - Richie Branch, DO Last intake: Intake Last Liquid Date 05/25/25 Last Liquid Time 19:00 Last Solid Date 05/25/25 Last Solid Time 19:00 Social No alcohol and No tobacco Exam alert, oriented x 3, clear to auscultation bilaterally and regular rate & rhythm Airway Submandibular: within normal limits Cervical ROM: within normal limits Mallampati: Class II CV/HEM Hypertension Metabolic Hyperlipidemia [facility] Osteoarthritis/DJD Anesthetic Plan ASA status: 3 Anesthesia: General Medications/Allergies Home Medications ?Medication ?Instructions ?Recorded ?Confirmed ?Last Taken ?Type amlodipine 5 mg tablet 5 mg PO QPM 08/30/21 05/26/25 05/25/25 History Custom Molded Orthotics #1 ea 12/12/21 03/22/25 Unknown Rx escitalopram oxalate 10 mg tablet 10 mg PO DAILY 01/12/23 05/26/25 05/25/25 History (Lexapro) SMO to left #1 ea 09/09/23 03/22/25 Unknown Rx atorvastatin 40 mg tablet 40 mg PO QPM 09/09/23 05/26/25 05/25/25 History hydrocodone 5 mg-acetaminophen 325 1 tab PO Q8H PRN pain 7 days #21 08/26/24 05/26/25 05/25/25 Rx mg tablet tabs baclofen 10 mg tablet 10 mg PO DAILY PRN Pain 03/04/25 05/26/25 05/25/25 History Allergies Allergy/AdvReac Type Severity Reaction Status Date / Time No Known Allergies Allergy Verified 05/24/25 14:09 Current Medications Generic Name Dose Route Start Last Admin Trade Name Freq PRN Reason Stop Dose Admin Sodium Chloride 1,000 mls @ 30 mls/hr 05/26/25 06:00 05/26/25 06:48 Sodium Chloride 0.9% IV 05/27/25 05:59 30 mls/hr .Q24H SAIDA Administration PFSH Anesthesia Medical History Lumbar radiculopathy, acute Spinal stenosis, lumbar region, with neurogenic claudication Herniated nucleus pulposus, L2-3 left Hypokalemia DDD (degenerative disc disease), lumbar Lumbar radiculopathy Dehydration Nausea Back pain Lumbar radiculopathy, chronic HTN (hypertension) Hyperlipidemia Lisfranc fracture Surgical History Status post lumbar laminectomy S/P arthroscopic knee surgery (~2013) S/P hysterectomy (~1995) S/P bladder repair S/P foot surgery, right Family History Mother Heart disease Father Heart disease Cancer Brother Cancer Colon CA Social History Smoking and tobacco/nicotine status: former use of tobacco/nicotine Quit status (tobacco/nicotine): has quit using Year quit tobacco: 1997 2 pack per day Former quit date comment: smoked for 30 years Alcohol intake: current Alcohol intake frequency: 3 or more drinks per day Alcohol type: beer Substance/Drug Use: never Lives independently: Yes Household members: spouse Housing: House Marital status: Number of children: 3 Pets and animals: No Data Anesthesia Cardiac Studies: Echocardiogram 01/12/23
[2025-05-26] MEDS: ceFAZolin 2,000 MG in sodium chloride 0.9% (plus) 50 ML 100 MG IV (07:34)
[2025-05-26] MEDS: ROPivacaine 0.5% SDV 30 mL 30 MG INJECTION (08:00)
[2025-05-26] MEDS: lidocaine-epi 1% PF 1:200,000 30 mL SDV 5 ML INJECTION (08:00)
--- NOTE | 2025-05-26 08:23 | W.PM.BPON ---
Date of Procedure: 05/26/2025 Surgeon: Richie Huerta DO Performance Improvement Analyst(s): None Procedure(s) performed: Left carpal tunnel release Left cubital tunnel release (ulnar nerve decompression at the elbow) Findings of the procedure(s): Underwent procedure as planned without issues or complications no subluxation of the ulnar nerve as result no transposition. Taken recovery in stable condition. Estimated blood loss: 5 mL Specimen(s) removed: None Post-operative diagnosis: Left carpal tunnel syndrome, left cubital tunnel syndrome
--- NOTE | 2025-05-26 08:24 | PM.OP ---
Operative Report Date of procedure: May 26, 2025 Surgeon: Richie Huerta DO Procedure: Preoperative diagnosis: Left carpal tunnel syndrome Left cubital tunnel syndrome Postop Diagnosis: Same Procedure done: Left carpal tunnel release Left?cubital tunnel tunnel release (ulnar nerve decompression at elbow) Surgeon: Richie Huerta DO Estimated blood loss: 5 mL Tourniquet? 11 minutes IV fluids: 750 mL Complications: None Findings: See operative report narrative Condition: stable Disposition: same day Brief History: Patient's been seen and worked up in the outpatient setting and findings consistent with preoperative diagnosis.? Patient has Left carpal tunnel syndrome as well as Left?cubital tunnel syndrome which has been worked up in the outpatient setting has physical exam findings consistent with this as well as confirmatory nerve conduction/EMG nerve conduction study consistent with diagnosis.? Patient's failed conservative treatment.? As result through shared decision making agreed to proceed with? Left carpal tunnel and Left?cubital tunnel release with possible nerve transposition. She is done well with the right side and ready proceed with surgical intervention for the left. We talked about treatment options as far as nonoperative and operative intervention.? Understands risk benefits complication alternatives surgical nonsurgical treatment options.? Understanding risks patient's agrees to proceed with surgical intervention. Understanding these risks patient agrees to proceed with surgery.? Consent obtained in preoperative holding area. Procedure: Patient seen evaluate in the preoperative holding area.? Consent was reviewed and signed with patient.? Correct extremity marked.? Patient seen evaluated by anesthesia department once cleared for surgery was then taken back to the operative suite placed in supine position all bony prominences well-padded patient properly secured to bed.? Left upper extremity placed onto armboard.? Nonsterile tourniquet applied Left upper arm.? Patient then underwent anesthesia per the anesthesia department.? Patient's Left upper extremity was then prepped and draped in standard orthopedic fashion.? Final timeout performed.? Patient received appropriate preoperative antibiotics. Esmarch was used exsanguinate the Left upper extremity.? Tourniquet was insufflated to 250 mmHg. I started with the carpal tunnel release first.? I made a standard open carpal tunnel release starting with the distal most extent in the palm at the Davidson's cardinal line and the incision line was made in line with the fourth ray and ended just distal to the wrist crease.? Sharp scalpel incision was made through skin and subcutaneous tissue I then utilizing self retainer then began to dissect with dissection scissors split longitudinally the palmar fascia.? Next I then utilizing my assistant produce manager Heath retractors subsequently utilizing scalpel feathered through the palmaris brevis as well as through the transverse carpal ligament distally.? Once I encountered the floor of the transverse carpal ligament and entered into the carpal tunnel I then switched to dissection scissors.? Carefully released the distal extent of the transverse carpal ligament to the palmar fat.? Care was to protect the recurrent branch and not injured this during this part of the case.? Next I then placed a Mahaffey underneath the transverse carpal ligament proximally to protect the nerve in the carpal tunnel contents.? And then I subsequently under loupe magnification utilize my dissection scissors to release the transverse carpal ligament into the antebrachial fascia under direct visualization with care to keep my scissors with a curved ulnarly away from the palmar cutaneous branch.? The transverse carpal was then completely decompressed proximally and a Mahaffey was then placed both distally and proximally throughout the carpal tunnel and had complete decompression of the nerve.? The nerve did appear to have hourglass shape as it went through the carpal tunnel.? With significant irritation noted around the nerve.? No masses were noted within the contents of the carpal tunnel.? This completed the carpal tunnel release and then I subsequently irrigated the wound bed and placed a wet Ray-Ben into the incision for later closure. Next marked out the landmarks of the Left elbow of the medial epicondyle and olecranon and made a curvilinear incision following the course of the ulnar nerve at the medial aspect of the elbow.? Sharp scalpel incision was made through skin and subcutaneous tissue.? Next I switched to Littler dissection scissors and spread in plane of the medial antebrachial cutaneous nerve branching which was protected throughout this part of the dissection.? Then I directly came down over the fascia and identified the 2 heads of the FCU fascia and split this Left in the middle and subsequently identified my ulnar nerve distally.? This was then completely released distally under direct visualization and loupe magnification.? Once the nerve was then identified I then subsequently tracked this proximally and released this through Olson's ligament as well as complete decompression of the nerve proximally all the way past the intermuscular septum.? The nerve was completely released and decompressed both proximally and distally.? Ulnar nerve neurolysis performed and completed both proximally and distally with dissection scissors.? I then took the elbow through range of motion and there was no instability or subluxating of the ulnar nerve.? This completed?cubital tunnel release.? ?Next the wound bed was thoroughly irrigated.? Tourniquet was deflated.? Hemostasis was satisfactory at the?cubital tunnel release surgery site. I then inspected the carpal tunnel incision and this was found to have satisfactory hemostasis and all this was maintained through bipolar electrocautery.? At this point time I sequentially closed?cubital tunnel site with 3-0 Vicryl suture in a running horizontal mattress nylon stitch.? ? The carpal tunnel release surgery was then closed in standard interrupted mattress fashion.? Dressing was Xeroform 4 x 4's ABD Curlex soft roll and an Dain wrap has a bulky soft dressing. Patient was then awakened from anesthesia and taken to PACU in stable condition. Disposition: Patient taken to PACU in stable condition recovering well.? Patient will receive appropriate discharge instructions as well as pain medication postoperatively.? We will follow-up with Ortho in the office in 2 weeks.? Patient understands agrees with current plan.? All questions answered.? Pt understands if any questions or concerns and contact the office for follow-up appointment.
--- NOTE | 2025-05-26 09:51 | ANE.PACU2 ---
Inpatient post-anesthesia follow up: Airway intact: Yes Vital signs: Temperature 97.3 F Pulse Rate 69 Respiratory Rate 18 Blood Pressure 133/97 Pulse Oximetry 96 Oxygen Delivery Me thod Room Air Oxygen Flow Rate 8 Fraction of Inspir ed Oxygen Hydration adequate: Yes Nausea and vomiting: No Pain level: controlled Mental status: Baseline
== END 2025-05-26 09:45 | disposition home or self-care (01) ==
PROVIDERS: PCP Electrodiagnostic Medicine; Visit Provider Student in an Organized Health Care Education/Training Program
PROC: (CPT 64721; principal; 2025-05-26 07:45)
PROC: (CPT 64718; 2025-05-26 07:45)
DX: G56.02 Carpal tunnel syndrome, left upper limb (principal); G56.22 Lesion of ulnar nerve, left upper limb; I10 Essential (primary) hypertension; E78.5 Hyperlipidemia, unspecified; Z87.891 Personal history of nicotine dependence
CPT/HCPCS: 64718; 64721; J0131; J0690; J1100; J1885; J2250; J2405; J2704; J2795; J3010; J7030; J9999

== ENCOUNTER → 2025-06-08 09:23 | Outpatient (BNVA) | payer MEDICARE, SELFPAY | PROVIDERS: PCP Electrodiagnostic Medicine; Visit Provider Physician Assistant | DX: Z98.890 Other specified postprocedural states (principal) | CPT/HCPCS: 99024 ==

== ENCOUNTER 2025-06-15 05:00 | Outpatient (RCR) | payer MEDICARE, SELFPAY | END 2025-07-15 23:59 | disposition home or self-care (01) | LOC: SPT 05:00 | PROVIDERS: Visit Provider Orthopaedic Surgery | DX: R29.898 Other symptoms and signs involving the musculoskeletal system (principal); R26.89 Other abnormalities of gait and mobility; R26.81 Unsteadiness on feet | CPT/HCPCS: 97110; 97530 ==

== ENCOUNTER → 2025-06-29 08:40 | Outpatient (BNVA) | payer MEDICARE, SELFPAY | PROVIDERS: PCP Electrodiagnostic Medicine; Visit Provider Student in an Organized Health Care Education/Training Program | DX: Z98.890 Other specified postprocedural states (principal) | CPT/HCPCS: 99213 ==

== ENCOUNTER 2025-07-05 09:53 | Outpatient (RCR) | payer MEDICARE, SELFPAY | END 2025-07-15 23:59 | disposition home or self-care (01) | LOC: SOT 09:53 | PROVIDERS: Visit Provider Student in an Organized Health Care Education/Training Program | DX: M79.642 Pain in left hand (principal); Z98.890 Other specified postprocedural states | CPT/HCPCS: 97022; 97035; 97166 ==

== ENCOUNTER 2025-07-16 05:00 | Outpatient (RCR) | payer MEDICARE, SELFPAY | END 2025-08-14 23:59 | disposition home or self-care (01) | LOC: SOT 05:00 | PROVIDERS: PCP Electrodiagnostic Medicine; Visit Provider Student in an Organized Health Care Education/Training Program | DX: Z98.890 Other specified postprocedural states (principal); M79.642 Pain in left hand | CPT/HCPCS: 97022; 97035 ==

== ENCOUNTER 2025-07-16 05:00 | Outpatient (RCR) | payer MEDICARE, SELFPAY | END 2025-08-09 13:23 | disposition home or self-care (01) | LOC: SPT 05:00 | PROVIDERS: PCP Electrodiagnostic Medicine; Visit Provider Orthopaedic Surgery | DX: R29.898 Other symptoms and signs involving the musculoskeletal system (principal); R26.89 Other abnormalities of gait and mobility; R26.81 Unsteadiness on feet | CPT/HCPCS: 97110; 97530 ==

== ENCOUNTER → 2025-07-25 09:02 | Outpatient (BNVA) | payer MEDICARE, SELFPAY | PROVIDERS: PCP Electrodiagnostic Medicine; Visit Provider Podiatrist Foot & Ankle Surgery | DX: L60.3 Nail dystrophy (principal) | CPT/HCPCS: 99213 ==

== ENCOUNTER 2025-08-24 08:44 | Outpatient (CLI) | payer MEDICARE, SELFPAY ==
--- NOTE | 2025-08-24 08:52 | MM_ITS ---
WS: [id number] BILATERAL SCREENING DIGITAL TOMOSYNTHESIS MAMMOGRAM WITH CAD HISTORY: SCREENING COMPARISON: 06/25/2019, 01/16/2018 Bilateral CC and MLO views with tomosynthesis and synthetic mammography submitted. Computer aided detection analyzed. Breast composition: There are scattered areas of fibroglandular density. No suspicious masses, microcalcifications or architectural distortion. Coarse calcifications in the anterior RIGHT breast are stable. MM/MM scr BI tomosynthesis [id number] IMPRESSION: BI-RADS: 2 - Benign. FOLLOW UP: 1 Year Follow-up
[2025-08-24 11:09] LABS: Hematocrit 40.5 % (36-47); Hemoglobin 13.40 g/dL (11.27-16.99); Mean Corpuscular HGB Conc 33.1 g/dL (30-55); Mean Corpuscular Hemoglobin 30.9 pg (27-33); Mean Corpuscular Volume 93.3 fl (85-98); Nucleated Red Blood Cells % 0 %; Platelet Count 335 10^3/cmm (157-399); Red Blood Count 4.34 10^6/uL (3.85-5.65); White Blood Count 7.32 10^3/uL (3.29-11.43)
[2025-08-24 13:31] LABS: Alanine Aminotransferase 23 U/L (0-33); Albumin Level 4.3 g/dL (3.5-5.2); Alkaline Phosphatase 98 U/L (35-105); Anion Gap 18.1 (5-19); Aspartate Amino Transferase 28 U/L (0-32); Blood Urea Nitrogen 23 mg/dL (8-23); Calcium 8.9 mg/dL (8.5-10.5); Carbon Dioxide 20 mmol/L (22-29); Chloride 104 mmol/L (98-107); Globulin 2.6 g/dL (1.3-4.6); Glucose 102 mg/dL (65-115); Osmolality Calculated 290 mOsm/kg (285-295); Potassium 4.1 mmol/L (3.5-5.1); Sodium 138 mmol/L (136-145); Total Protein 6.9 g/dL (6.6-8.7); Uric Acid 6.2 mg/dL (2.4-5.7)
[2025-08-25 07:40] LABS: Anti-Double Strand DNA AB <1 IU/mL; SM/RNP Antibodies <1.0 NEG AI (<1.0 NEG); SS-B/LA IGG <1.0 NEG AI (<1.0 NEG); Scleroderma Ab(Scl-70) Ab <1.0 NEG AI (<1.0 NEG); Ss-A/Ro Igg <1.0 NEG AI (<1.0 NEG)
== END 2025-08-24 08:45 | disposition home or self-care (01) ==
LOC: RAD 08:45
PROVIDERS: Student in an Organized Health Care Education/Training Program; PCP Electrodiagnostic Medicine; Visit Provider Electrodiagnostic Medicine
DX: Z12.31 Encounter for screening mammogram for malignant neoplasm of breast (principal); M06.4 Inflammatory polyarthropathy; R92.323 Mammographic fibroglandular density, bilateral breasts; R92.1 Mammographic calcification found on diagnostic imaging of breast
CPT/HCPCS: 36415; 77063; 77067; 80053; 84550; 85025; 85651; 86140; 86200; 86225; 86235; 86431